=== PATIENT | female | born 1980 | race African-American/Black ===

== ENCOUNTER 2016-07-14 19:59 | Emergency (ER) | payer MEDICARE, MEDICAID ==
[2016-07-14 20:36] VITALS: BP 126/80
[2016-07-14] MEDS ORDERED: ACETAMINOPHEN SOLN 325 MG/10.15 ML UDCUP PO ONE (20:40)
--- NOTE | 2016-07-14 20:41 | ER Document Report ---
ED Medical Screen (RME) - General Stated Complaint: SORE THROAT/COUGH Mode of Arrival: Ambulatory Information source: Patient Notes: Patient complains of sore throat, cough and congestion. No fever. Patient states symptoms started yesterday. hx: Peritoneal dialysis, diabetes, hypertension I have greeted and performed a rapid initial assessment of this patient. A comprehensive ED assessment and evaluation of the patient, analysis of test results and completion of the medical decision making process will be conducted by additional ED providers. TRAVEL OUTSIDE OF THE [place] IN LAST 30 DAYS: No - Related Data Allergies/Adverse Reactions: cephalexin monohydrate [From Keflex] Allergy (Severe, Verified 07/14/16 20:38) Hives clindamycin [Clindamycin] Allergy (Severe, Verified 07/14/16 20:38) Hives morphine [Morphine] Allergy (Severe, Verified 07/14/16 20:38) Hives Sulfa (Sulfonamide Antibiotics) Allergy (Severe, Verified 07/14/16 20:38) Hives tramadol [Tramadol] Allergy (Severe, Verified 07/14/16 20:38) Hives trimethoprim [From Bactrim] Allergy (Severe, Verified 07/14/16 20:38) Penicillins Allergy (Verified 07/14/16 20:38) sulfamethoxazole [From Bactrim] Allergy (Verified 07/14/16 20:38) Past Medical History - Past Medical History Cardiac Medical History: Reports: Hx Hypertension Denies: Hx Coronary Artery Disease, Hx Heart Attack Pulmonary Medical History: Denies: Hx Asthma, Hx Bronchitis, Hx COPD, Hx Pneumonia Neurological Medical History: Denies: Hx Seizures Endocrine Medical History: Reports: Hx Diabetes Mellitus Type 2 Renal/ Medical History: Reports: Hx End Stage Renal Disease, Hx Peritoneal Dialysis Musculoskeltal Medical History: Denies Hx Arthritis, Reports Hx Musculoskeletal Trauma - knee injury october 13, 2013 Skin Medical History: Reports Hx MRSA Psychiatric Medical History: Denies: Hx Depression Infectious Medical History: Reports: Hx MRSA Past Surgical History: Reports: Hx Orthopedic Surgery, Hx Vascular Surgery - PermCath - Immunizations Immunizations up to date: No Hx Diphtheria, Pertussis, Tetanus Vaccination: No Physical Exam - Vital signs Vitals: Temp Pulse Resp BP 98.1 F 93 18 126/80 H 07/14/16 20:35 07/14/16 20:35 07/14/16 20:35 07/14/16 20:35 - Respiratory Respiratory status: No respiratory distress Breath sounds: Nonproductive cough Course - Vital Signs Vital signs: Temp Pulse Resp BP Pulse Ox 98.1 F 93 18 126/80 H 07/14/16 20:35 07/14/16 20:35 07/14/16 20:35 07/14/16 20:35
--- NOTE | 2016-07-14 23:02 | ER Document Report ---
ED General - General Chief Complaint: Sore Throat Stated Complaint: SORE THROAT/COUGH Mode of Arrival: Ambulatory Information source: Patient Notes: 36-year-old female history of peritoneal dialysis presents with complaints of sore throat nonproductive cough of one day duration. Patient denies any fevers or chills admits to body aches TRAVEL OUTSIDE OF THE [place] IN LAST 30 DAYS: No - HPI Onset: Yesterday Onset/Duration: Persistent Quality of pain: Achy Severity: Mild Pain Level: 1 Associated symptoms: Body/muscle aches, Nonproductive cough, Sore throat Exacerbated by: Denies Relieved by: Denies Similar symptoms previously: No Recently seen / treated by doctor: No - Related Data Allergies/Adverse Reactions: cephalexin monohydrate [From Keflex] Allergy (Severe, Verified 07/14/16 20:38) Hives clindamycin [Clindamycin] Allergy (Severe, Verified 07/14/16 20:38) Hives morphine [Morphine] Allergy (Severe, Verified 07/14/16 20:38) Hives Sulfa (Sulfonamide Antibiotics) Allergy (Severe, Verified 07/14/16 20:38) Hives tramadol [Tramadol] Allergy (Severe, Verified 07/14/16 20:38) Hives trimethoprim [From Bactrim] Allergy (Severe, Verified 07/14/16 20:38) Penicillins Allergy (Verified 07/14/16 20:38) sulfamethoxazole [From Bactrim] Allergy (Verified 07/14/16 20:38) Past Medical History - General Information source: Patient - Social History Smoking Status: Never Smoker Cigarette use (# per day): No Chew tobacco use (# tins/day): No Smoking Education Provided: No Family History: Arthritis, DM, Hypertension Patient has suicidal ideation: No Patient has homicidal ideation: No - Past Medical History Cardiac Medical History: Reports: Hx Hypertension Denies: Hx Coronary Artery Disease, Hx Heart Attack Pulmonary Medical History: Denies: Hx Asthma, Hx Bronchitis, Hx COPD, Hx Pneumonia Neurological Medical History: Denies: Hx Seizures Endocrine Medical History: Reports: Hx Diabetes Mellitus Type 2 Renal/ Medical History: Reports: Hx End Stage Renal Disease, Hx Peritoneal Dialysis Musculoskeltal Medical History: Denies Hx Arthritis, Reports Hx Musculoskeletal Trauma - knee injury october 13, 2013 Skin Medical History: Reports Hx MRSA Psychiatric Medical History: Denies: Hx Depression Infectious Medical History: Reports: Hx MRSA Past Surgical History: Reports: Hx Orthopedic Surgery, Hx Vascular Surgery - PermCath - Immunizations Immunizations up to date: No Hx Diphtheria, Pertussis, Tetanus Vaccination: No Hx Pneumococcal Vaccination: 05/27/14 Review of Systems - Review of Systems Notes: REVIEW OF SYSTEMS: CONSTITUTIONAL : Denies fever, chills, or sweats. Denies recent illness. EENT: Admits to sore throat CARDIOVASCULAR: Denies chest pain. Denies palpitations or racing or irregular heart beat. Denies ankle edema. RESPIRATORY: Denies cough, cold, or chest congestion. Denies shortness of breath, difficulty breathing, or wheezing. GASTROINTESTINAL: Denies abdominal pain or distention. Denies nausea, vomiting , or diarrhea. Denies blood in vomitus, stools, or per rectum. Denies black, tarry stools. Denies constipation. GENITOURINARY: Denies difficulty urinating, painful urination, burning, frequency, blood in urine, or discharge. FEMALE GENITOURINARY: Denies vaginal bleeding, heavy or abnormal periods, irregular periods. Denies vaginal discharge or odor. MUSCULOSKELETAL: Admits to body aches SKIN: Denies rash, lesions or sores. HEMATOLOGIC : Denies easy bruising or bleeding. LYMPHATIC: Denies swollen, enlarged glands. NEUROLOGICAL: Denies confusion or altered mental status. Denies passing out or loss of consciousness. Denies dizziness or lightheadedness. Denies headache. Denies weakness or paralysis or loss of use of either side. Denies problems with gait or speech. Denies sensory loss, numbness, or tingling. Denies seizures. PSYCHIATRIC: Denies anxiety or stress. Denies depression, suicidal ideation, or homicidal ideation. ALL OTHER SYSTEMS REVIEWED AND NEGATIVE. Dictation was performed using [employer] voice recognition software PHYSICAL EXAMINATION: GENERAL: Well-appearing, well-nourished and in no acute distress. HEAD: Atraumatic, normocephalic. EYES: Pupils equal round and reactive to light, extraocular movements intact, conjunctiva are normal. ENT: Nares patent, oropharynx clear without exudates. Moist mucous membranes. NECK: Normal range of motion, supple without lymphadenopathy LUNGS: Breath sounds clear to auscultation bilaterally and equal. No wheezes rales or rhonchi. HEART: Regular rate and rhythm without murmurs ABDOMEN: Soft, nontender, nondistended abdomen. No guarding, no rebound. No masses appreciated. Female : deferred Musculoskeletal: Normal range of motion, no pitting or edema. No cyanosis. NEUROLOGICAL: Cranial nerves grossly intact. Normal speech, normal gait. Normal sensory, motor exams PSYCH: Normal mood, normal affect. SKIN: Warm, Dry, normal turgor, no rashes or lesions noted. Physical Exam - Vital signs Vitals: Temp Pulse Resp BP 98.1 F 93 18 126/80 H 07/14/16 20:35 07/14/16 20:35 07/14/16 20:35 07/14/16 20:35 Course - Re-evaluation Re-evalutation: 07/14/16 23:01 Physical examination and x-ray noted no acute abnormality, patient will be given a prescription for Levaquin with the understanding that she only takes if her symptoms are worsening in case she cannot get back in with her primary care physician or the emergency department Otherwise patient is in no distress resting comfortably and has been doing dialysis daily After performing a Medical Screening Examination, I estimate there is LOW risk for ACUTE CORONARY SYNDROME, RESPIRATORY FAILURE, SEPSIS OR MENINGITIS, thus I consider the discharge disposition reasonable. The patient and I have discussed the diagnosis and risks, and we agree with discharging home with close follow- up. We also discussed returning to the Emergency Department immediately if new or worsening symptoms occur. We have discussed the symptoms which are most concerning (e.g., changing or worsening pain, trouble swallowing or breathing, neck stiffness, fever) that necessitate immediate return. - Vital Signs Vital signs: Temp Pulse Resp BP Pulse Ox 98.1 F 93 18 126/80 H 07/14/16 20:35 07/14/16 20:35 07/14/16 20:35 07/14/16 20:35 - Diagnostic Test Radiology reviewed: Image reviewed, Reports reviewed Discharge - Discharge Clinical Impression: Sore throat, Body aches, Nonproductive cough Condition: Stable Disposition: HOME, SELF-CARE Instructions: Sore Throat ([facility]) Prescriptions: Levofloxacin [Levaquin 750 mg Tablet] 750 mg PO DAILY #5 tablet Referrals: JONAH PACE MD [Primary Care Provider] - Follow up tomorrow
== END 2016-07-14 23:30 | disposition home or self-care (01) ==
LOC: ER 19:59
DX: J02.9 Acute pharyngitis, unspecified (principal); R05 Cough; M79.1 Myalgia; E11.22 Type 2 diabetes mellitus with diabetic chronic kidney disease; I12.0 Hypertensive chronic kidney disease with stage 5 chronic kidney disease or end stage renal disease; N18.6 End stage renal disease; Z86.14 Personal history of Methicillin resistant Staphylococcus aureus infection; Z88.6 Allergy status to analgesic agent; Z88.2 Allergy status to sulfonamides
CPT/HCPCS: 99283; 87070; 87880; 71020; J3490

== ENCOUNTER 2016-09-06 08:34 | Day surgery (SDC) | payer MEDICARE, MEDICAID ==
[2016-09-03 12:41] LABS: ABSOLUTE BASOPHILS # (AUTO) 0.1 10^3/uL (0.0-0.2); ABSOLUTE EOSINOPHILS # (AUTO) 0.3 10^3/uL (0.0-0.6); ABSOLUTE LYMPHOCYTES (AUTO) 1.8 10^3/uL (0.5-4.7); ABSOLUTE MONOCYTES (AUTO) 0.8 10^3/uL (0.1-1.4); ABSOLUTE NEUT (AUTO) 7.6 10^3/uL (1.7-8.2); BASOPHILS % (AUTO) 0.5 % (0-2); EOSINOPHILS % (AUTO) 2.8 % (0-6); HEMATOCRIT 31.1 % (36.0-47.0); HEMOGLOBIN 10.4 g/dL (12.0-15.5); HGB HCT DIFFERENCE 0.1; LYMPHOCYTES % (AUTO) 16.8 % (13-45); MEAN CORPUSCULAR HEMOGLOBIN 32.9 pg (27.0-33.4); MEAN CORPUSCULAR HGB CONC 33.4 g/dL (32.0-36.0); MEAN CORPUSCULAR VOLUME 98 fl (80-97); MONOCYTES % (AUTO) 7.7 % (3-13); RED BLOOD COUNT 3.16 10^6/uL (3.72-5.28); RED CELL DISTRIBUTION WIDTH 19.1 % (11.5-14.0); SEGMENTED NEUTROPHILS % (AUTO) 72.2 % (42-78); WHITE BLOOD COUNT 10.5 10^3/uL (4.0-10.5)
[2016-09-03 13:01] LABS: BLOOD UREA NITROGEN 51 mg/dL (7-20); CALCIUM 9.9 mg/dL (8.4-10.2); CARBON DIOXIDE 25 mmol/L (22-30); CHLORIDE 97 mmol/L (98-107); GLUCOSE 166 mg/dL (75-110); SODIUM 145.2 mmol/L (137-145)
[2016-09-03 13:11] LABS: ANION GAP 23 (5-19); CREATININE RESULT 16.99 mg/dL (0.52-1.25)
[~2016-09-06 08:34] MED LIST: LIDOCAINE 0.5% INJ-PF (5 MG/ML) 50 ML SDV SUBCUT PRN; NORMAL SALINE 1000 ML (RENAL PATIENTS) IV PRN
[2016-09-06] MEDS ORDERED: LIDOCAINE 1%/EPINEPHRINE INJ 20 ML VIAL ONE (11:21)
[2016-09-06] MEDS ORDERED: FENTANYL CITRATE INJ/PF 100 MCG/2 ML AMPUL ONE (11:32)
[2016-09-06] MEDS ORDERED: MIDAZOLAM 2 MG/2 ML INJ ONE (11:32)
[2016-09-06] MEDS ORDERED: ONDANSETRON HCL INJ/PF 4 MG/2 ML SDV ONE (11:32)
[2016-09-06] MEDS ORDERED: PROPOFOL INJ 200 MG/20 ML VIAL IV ONE (11:33)
[2016-09-06] MEDS ORDERED: FENTANYL CITRATE INJ/PF 100 MCG/2 ML AMPUL IV PRN ×3 (12:29)
[2016-09-06] MEDS ORDERED: PROMETHAZINE HCL INJ 25 MG/1 ML VIAL IV PRN (12:29)
[2016-09-06] MEDS ORDERED: DIPHENHYDRAMINE HCL 50 MG/ML VIAL IV PRN (12:29)
[2016-09-06] MEDS ORDERED: MEPERIDINE HCL/PF INJ 25 MG/1 ML DISP.SYRIN IV PRN (12:29)
[2016-09-06] MEDS ORDERED: ONDANSETRON HCL INJ/PF 4 MG/2 ML SDV IV PRN (13:28)
[2016-09-06] MEDS ORDERED: RINGERS SOLUTION,LACTATED 1,000 ML IV PRN (13:29)
[2016-09-06] MEDS ORDERED: HYDROCODONE/ACETAMINOPHEN 5-325 MG TABLET PO PRN ×2 (13:30→13:51)
[2016-09-06] MEDS ORDERED: OXYCODONE-ACETAMINOPHEN 5-325 MG TABLET PO PRN (13:30)
[2016-09-06] MEDS ORDERED: HYDROMORPHONE HCL INJ/PF 2 MG/ML AMPULE IV PRN (13:30)
[2016-09-06 16:42] VITALS: BP 138/94
--- NOTE | 2016-10-07 08:15 | Operative Report ---
Operative Report DATE OF SURGERY: 10/06/16 PREOPERATIVE DIAGNOSIS: CESAR I, Endometrial Polyp, Menorrhagia POSTOPERATIVE DIAGNOSIS: MAGALI OPERATION: EUA, Paracervical Block, Hysteroscopy, D&C, ECC, CKC SURGEON: EUN GUSMAN ANESTHESIA: GA TISSUE REMOVED OR ALTERED: EMC, CKC, ECC COMPLICATIONS: none ESTIMATED BLOOD LOSS: 10ml INTRAOPERATIVE FINDINGS: ingrown hair on right groin, no adnexal masses, small AV uterus with minimal descent, mildly proliferative appearing endometrium, no polyp noted, moderate currettings on D&C, ECC done. PROCEDURE: Preoperative Diagnosis: [CESAR I, Endometrial Polyp, Menorrhagia] Postoperative Diagnosis: MAGALI Procedure: EUA, Paracervical Block, Hysteroscopy, Dilation and Curettage, CKC, ECC Anesthesia: [ Jacinto SPARKS, Jayne ORTIZ] Anesthesia: LMAC EBL: less than 10ml IVF: [400ml] UOP: void prior to OR Specimens: [ECC, EMC, CKC] Complications: None Findings: see above Indications: [36yo G0 currently on DepoProvera for contraception and with chronic renal failure on dialysis presents for management of CESAR I so that she be placed on transplant list. CESAR I persistent. Endometrial bopsy revealed endometrial polyp in pt with meorrhagia. She was counseled regarding the options for treatment and desires management with CKC and D&C due to desire for placement on transplant list. The risks, benefits and alternatives reviewed. She desires to proceed with the planned procedure.] Procedure: The patient was taken to the Operating Room where general anesthesia was obtained without difficulty. She was prepped and draped in the normal sterile fashion in the dorsal lithotomy position. Exam under anesthesia was performed and noted above. A speculum was placed in the vagina. The anterior cervix was grasped with a single-tooth tenaculum and the uterus sounded to 8 cm after paracervical block was performed with 8 mL of 1% lidocaine with epinephrine. Sequential dilators were then used to dilate the cervix to accommodate the hysteroscope. The hysteroscope was then gently advanced into the uterine cavity in the usual fashion with visualization of the endometrial cavity but no definitive polyp noted. Therefore the hysteroscope was removed and currettage performed until a gritty texture noted. At this time suture was placed at the 3 o'clock and 9 o'clock position and lugols solution placed. Area of decreased uptake noted and scalpel used to excise area in a conical fasion. The bed was then cauterized and ECC performed. Monsels soaked gel foam was placed into bed and suture tied over foam for hemostasis. Good hemostasis noted. All instruments were removed from the patient's cervix and vagina. Sponge lap needle and instrument counts are correct 2. No perioperative antibiotics were given as is not indicated for this procedure. The patient tolerated the procedure
== END 2016-09-06 15:40 | disposition home or self-care (01) ==
LOC: OROUT 08:34
PROVIDERS: ATTEND Student in an Organized Health Care Education/Training Program
PROC: 0UDB8ZX Extraction of Endometrium, Via Natural or Artificial Opening Endoscopic, Diagnostic (ICD-10-PCS; principal; 2016-09-06 11:00)
PROC: 0UBC8ZX Excision of Cervix, Via Natural or Artificial Opening Endoscopic, Diagnostic (ICD-10-PCS; 2016-09-06 11:00)
DX: N87.0 Mild cervical dysplasia (principal); N92.0 Excessive and frequent menstruation with regular cycle; N84.0 Polyp of corpus uteri; L73.1 Pseudofolliculitis barbae; Z79.899 Other long term (current) drug therapy; I12.0 Hypertensive chronic kidney disease with stage 5 chronic kidney disease or end stage renal disease; E11.22 Type 2 diabetes mellitus with diabetic chronic kidney disease; N18.6 End stage renal disease; E78.4 Other hyperlipidemia; Z86.718 Personal history of other venous thrombosis and embolism; Z79.4 Long term (current) use of insulin; Z88.5 Allergy status to narcotic agent; Z88.0 Allergy status to penicillin; Z88.1 Allergy status to other antibiotic agents
CPT/HCPCS: 36415 ×2; 82947; 84703 ×2; 85025; 80048; 88305 ×2; 88307 ×2; 58558; 57520; J2250; J3010; J3490; J2405; J2704; A9270; 952

== ENCOUNTER 2017-01-06 18:35 | Emergency (ER) | payer MEDICARE, MEDICAID ==
[2017-01-06 18:41] VITALS: BP 177/83
--- NOTE | 2017-01-06 19:27 | ER Document Report ---
ED Eye Complaint - General Chief Complaint: Eye Problem Stated Complaint: LEFT EYE PAIN Time Seen by Provider: 01/06/17 19:14 TRAVEL OUTSIDE OF THE [place] IN LAST 30 DAYS: No - HPI Onset: Yesterday Eye location: Left Injury: No Quality of pain: Other - FB sensation Contact lenses worn: No Associated symptoms: Foreign body sensation. denies: Burning, Itching, Pain, Photophobia, Redness, Matting, Eyelid swelling, Orbital swelling, Blurred vision , Double vision, Decreased vision, Loss of vision - Related Data Allergies/Adverse Reactions: cephalexin monohydrate [From Keflex] Allergy (Severe, Verified 08/27/16 10:19) Hives clindamycin [Clindamycin] Allergy (Severe, Verified 08/27/16 10:19) Hives morphine [Morphine] Allergy (Severe, Verified 08/27/16 10:19) Hives Sulfa (Sulfonamide Antibiotics) Allergy (Severe, Verified 08/27/16 10:19) Hives tramadol [Tramadol] Allergy (Severe, Verified 08/27/16 10:19) Hives trimethoprim [From Bactrim] Allergy (Severe, Verified 08/27/16 10:19) Penicillins Allergy (Verified 08/27/16 10:19) sulfamethoxazole [From Bactrim] Allergy (Verified 08/27/16 10:19) Past Medical History - Social History Smoking Status: Unknown if Ever Smoked Family History: Arthritis, DM, Hypertension - Past Medical History Cardiac Medical History: Reports: Hx Hypertension Denies: Hx Coronary Artery Disease, Hx Heart Attack Pulmonary Medical History: Denies: Hx Asthma, Hx Bronchitis, Hx COPD, Hx Pneumonia Neurological Medical History: Denies: Hx Cerebrovascular Accident, Hx Seizures Endocrine Medical History: Reports: Hx Diabetes Mellitus Type 2 Renal/ Medical History: Reports: Hx End Stage Renal Disease, Hx Peritoneal Dialysis - Due for exchange, fluid is on Musculoskeltal Medical History: Denies Hx Arthritis, Reports Hx Musculoskeletal Trauma - knee injury october 13, 2013 Skin Medical History: Reports Hx MRSA Psychiatric Medical History: Denies: Hx Depression Infectious Medical History: Reports: Hx MRSA Past Surgical History: Reports: Hx Orthopedic Surgery, Hx Vascular Surgery - PermCath - Immunizations Immunizations up to date: No Hx Diphtheria, Pertussis, Tetanus Vaccination: No Hx Pneumococcal Vaccination: 05/27/14 Review of Systems - Review of Systems Constitutional: No symptoms reported EENT: See HPI Physical Exam - Vital signs Vitals: Temp Pulse Resp BP Pulse Ox 97.9 F 93 20 177/83 H 98 01/06/17 18:39 01/06/17 18:39 01/06/17 18:39 01/06/17 18:39 01/06/17 18:39 - HEENT Head: Normocephalic, Atraumatic Eyes: Normal Conjunctiva: Normal Cornea: Normal Extraocular movements intact: Yes Eyelashes: Normal Pupils: PERRL Lids everted for exam: left: Chalazion Anterior chamber: Normal Fundascopic: Normal Visual louis normal: Yes Course - Re-evaluation Re-evalutation: 01/06/17 21:46 Patient is a 36-year-old female presents with visualization of the left eyelid. Patient educated on warm compresses and given medication for discomfort. Patient to follow-up with ophthalmology next week. After performing a medical screening exam, his low clinical suspicion for any underlying acute closure glaucoma, iritis, conjunctivitis, or shingles. - Vital Signs Vital signs: Temp Pulse Resp BP Pulse Ox 97.9 F 93 20 177/83 H 98 01/06/17 18:39 01/06/17 18:39 01/06/17 18:39 01/06/17 18:39 01/06/17 18:39 Discharge - Discharge Clinical Impression: Chalazion Qualifiers: Laterality: left Eyelid: upper Qualified Code(s): H00.14 - Chalazion left upper eyelid Condition: Good Disposition: HOME, SELF-CARE Instructions: Chalazion ([facility]) Prescriptions: Ketorolac Tromethamine/Pf [Acuvail 0.45% Ophth Solution] 1 each OP Q6HP PRN 7 Days PRN Reason: Referrals: BLAIR TANNER MD [ACTIVE STAFF] - Follow up in 1 week
[2017-01-06] MEDS ORDERED: TETRACAINE HCL 0.5% OPH SOLN 2 ML OS ONE (19:35)
== END 2017-01-06 19:56 | disposition home or self-care (01) ==
LOC: ER 18:35
DX: H00.14 Chalazion left upper eyelid (principal); I12.0 Hypertensive chronic kidney disease with stage 5 chronic kidney disease or end stage renal disease; E11.22 Type 2 diabetes mellitus with diabetic chronic kidney disease; N18.6 End stage renal disease; Z99.2 Dependence on renal dialysis; Z88.1 Allergy status to other antibiotic agents; Z88.5 Allergy status to narcotic agent; Z88.2 Allergy status to sulfonamides; Z88.0 Allergy status to penicillin
CPT/HCPCS: 99283

== ENCOUNTER → 2017-01-18 | Outpatient (CLI) | payer MEDICARE, MEDICAID ==
--- NOTE | 2017-01-18 15:38 | RADIOLOGY REPORT (SQ) ---
EXAM DESCRIPTION: CT PELVIS WITHOUT COMPLETED DATE/TIME: 01/18/2017 2:55 pm REASON FOR STUDY: HYDRADENITIS/HEMORRHAGIC CYST OF OVARY/ABSCESS OF R GROIN L73.2 HIDRADENITIS SUPP URATIVA L02.214 CUTANEOUS ABSCESS OF GROIN COMPARISON: None. TECHNIQUE: CT scan of the pelvis performed without intravenous or oral contrast. Patient on periton eal dialysis. Images reviewed with soft tissue and bone windows. Reconstructed coronal and sagittal MPR images reviewed. All images stored on PACS. All CT scanners at this facility use dose modulation, iterative reconstruction, and/or weight based d osing when appropriate to reduce radiation dose to as low as reasonably achievable (ALARA). [facility]: Dose Right [facility]: CareDose [facility]: Dose Right [facility]: Teradose 4D [facility]: [employer] RADIATION DOSE: mGy. LIMITATIONS: None. FINDINGS: Peritoneal dialysis catheter coiled in the pelvis. Small amount of free fluid. No eviden ce of abscess. No adnexal mass is. Umbilical hernia containing fat. Normal appendix. No acute bone findings. IMPRESSION: No evidence of abscess or adnexal mass. TECHNICAL DOCUMENTATION: JOB ID: [id number] Quality ID # [id number]: Final reports with documentation of one or more dose reduction techniques (e.g., Au tomated exposure control, adjustment of the mA and/or kV according to patient size, use of iterative reconstruction technique) 2010 [employer]- All Rights Reserved
== END ==
LOC: RAD 14:08
PROVIDERS: ATTEND Obstetrics & Gynecology Gynecologic Oncology
DX: L02.214 Cutaneous abscess of groin (principal); L73.2 Hidradenitis suppurativa
CPT/HCPCS: 72192; 82565

== ENCOUNTER 2017-02-21 16:08 | Emergency (ER) | payer MEDICARE, MEDICAID ==
--- NOTE | 2017-02-21 17:21 | ER Document Report ---
ED Medical Screen (RME) - General Chief Complaint: Nausea/Vomiting Stated Complaint: NAUSEA,VOMITING,DIZZINESS Time Seen by Provider: 02/21/17 17:19 Notes: Patient has peritoneal dialysis. She states her kidney feels due to high blood pressure. She states she was at the dialysis center today for her monthly visit and received an Epogen shot and a flu shot. She says several hours later while at work she began to be real dizzy and had chest pain. She also states she felt very sleepy. She states the chest pain is now gone. However she states that she still feels very weak and sleepy. No recent cough cold or congestion. No vomiting or diarrhea. TRAVEL OUTSIDE OF THE [place] IN LAST 30 DAYS: No - Related Data Allergies/Adverse Reactions: cephalexin monohydrate [From Keflex] Allergy (Severe, Verified 02/21/17 16:13) Hives clindamycin [Clindamycin] Allergy (Severe, Verified 02/21/17 16:13) Hives morphine [Morphine] Allergy (Severe, Verified 02/21/17 16:13) Hives Sulfa (Sulfonamide Antibiotics) Allergy (Severe, Verified 02/21/17 16:13) Hives tramadol [Tramadol] Allergy (Severe, Verified 02/21/17 16:13) Hives trimethoprim [From Bactrim] Allergy (Severe, Verified 02/21/17 16:13) Penicillins Allergy (Verified 02/21/17 16:13) sulfamethoxazole [From Bactrim] Allergy (Verified 02/21/17 16:13) Past Medical History - Social History Chew tobacco use (# tins/day): No Frequency of alcohol use: None Drug Abuse: None - Past Medical History Cardiac Medical History: Reports: Hx Hypertension Denies: Hx Coronary Artery Disease, Hx Heart Attack Pulmonary Medical History: Denies: Hx Asthma, Hx Bronchitis, Hx COPD, Hx Pneumonia Neurological Medical History: Denies: Hx Cerebrovascular Accident, Hx Seizures Endocrine Medical History: Reports: Hx Diabetes Mellitus Type 2 Renal/ Medical History: Reports: Hx End Stage Renal Disease - peritoneal dialysis. Denies: Hx Peritoneal Dialysis Musculoskeltal Medical History: Denies Hx Arthritis, Reports Hx Musculoskeletal Trauma - knee injury october 13, 2013 Skin Medical History: Reports Hx MRSA Psychiatric Medical History: Denies: Hx Depression Infectious Medical History: Reports: Hx MRSA Past Surgical History: Reports: Hx Orthopedic Surgery, Hx Vascular Surgery - PermCath, peritoneal dialysis - Immunizations Immunizations up to date: No Hx Diphtheria, Pertussis, Tetanus Vaccination: No Physical Exam - Vital signs Vitals: Temp Pulse Resp BP Pulse Ox 98.6 F 84 12 133/78 H 100 02/21/17 16:13 02/21/17 16:13 02/21/17 16:13 02/21/17 16:13 02/21/17 16:13 Course - Vital Signs Vital signs: Temp Pulse Resp BP Pulse Ox 98.6 F 84 12 133/78 H 100 02/21/17 16:13 02/21/17 16:13 02/21/17 16:13 02/21/17 16:13 02/21/17 16:13
[2017-02-21 18:40] LABS: ABSOLUTE EOSINOPHILS # (AUTO) 0.2 10^3/uL (0.0-0.6); ABSOLUTE LYMPHOCYTES (AUTO) 1.5 10^3/uL (0.5-4.7); ABSOLUTE MONOCYTES (AUTO) 0.5 10^3/uL (0.1-1.4); ABSOLUTE NEUT (AUTO) 5.6 10^3/uL (1.7-8.2); BASOPHILS % (AUTO) 0.6 % (0-2); EOSINOPHILS % (AUTO) 2.1 % (0-6); HEMOGLOBIN 8.5 g/dL (12.0-15.5); HGB HCT DIFFERENCE 0.5; LYMPHOCYTES % (AUTO) 18.9 % (13-45); MEAN CORPUSCULAR HEMOGLOBIN 31.7 pg (27.0-33.4); MEAN CORPUSCULAR HGB CONC 33.9 g/dL (32.0-36.0); MEAN CORPUSCULAR VOLUME 93 fl (80-97); MONOCYTES % (AUTO) 6.6 % (3-13); RED BLOOD COUNT 2.68 10^6/uL (3.72-5.28); SEGMENTED NEUTROPHILS % (AUTO) 71.8 % (42-78); WHITE BLOOD COUNT 7.8 10^3/uL (4.0-10.5)
[2017-02-21 18:52] LABS: ALANINE AMINOTRANSFERASE 45 U/L (9-52); ALBUMIN 4.1 g/dL (3.5-5.0); ALKALINE PHOSPHATASE 240 U/L (38-126); ASPARTATE AMINO TRANSFERASE 46 U/L (14-36); BILIRUBIN,DIRECT 0.5 mg/dL (0.0-0.4); BILIRUBIN,TOTAL 0.5 mg/dL (0.2-1.3); BLOOD UREA NITROGEN 67 mg/dL (7-20); CALCIUM 8.6 mg/dL (8.4-10.2); CARBON DIOXIDE 24 mmol/L (22-30); CHLORIDE 96 mmol/L (98-107); GLUCOSE 206 mg/dL (75-110); POTASSIUM 4.2 mmol/L (3.6-5.0); SODIUM 139.7 mmol/L (137-145); TOTAL PROTEIN 7.8 g/dL (6.3-8.2)
[2017-02-21 19:06] LABS: ANION GAP 20 (5-19)
--- NOTE | 2017-02-21 19:42 | ER Document Report ---
ED General - General Chief Complaint: Nausea/Vomiting Stated Complaint: NAUSEA,VOMITING,DIZZINESS Time Seen by Provider: 02/21/17 17:19 Notes: Patient is a 36-year-old female with past medical history of chronic kidney disease with peritoneal dialysis dependence who presents with generalized fatigue, nausea and lightheadedness approximately 2 hours after receiving an influenza vaccination as well as a shot of Epogen. At time of my assessment she states the symptoms have now resolved and she feels much better without intervention. She denies a history of similar symptoms in the past. When her symptoms are present nothing improves or worsens them. She denied any abdominal pain, chest pain, shortness of breath, headache, neck pain or altered mental status. She did have several episodes of nonbilious vomiting. She has not missed any sessions of peritoneal dialysis. TRAVEL OUTSIDE OF THE [place] IN LAST 30 DAYS: No - Related Data Allergies/Adverse Reactions: cephalexin monohydrate [From Keflex] Allergy (Severe, Verified 02/21/17 16:13) Hives clindamycin [Clindamycin] Allergy (Severe, Verified 02/21/17 16:13) Hives morphine [Morphine] Allergy (Severe, Verified 02/21/17 16:13) Hives Sulfa (Sulfonamide Antibiotics) Allergy (Severe, Verified 02/21/17 16:13) Hives tramadol [Tramadol] Allergy (Severe, Verified 02/21/17 16:13) Hives trimethoprim [From Bactrim] Allergy (Severe, Verified 02/21/17 16:13) Penicillins Allergy (Verified 02/21/17 16:13) sulfamethoxazole [From Bactrim] Allergy (Verified 02/21/17 16:13) Past Medical History - General Information source: Patient - Social History Smoking Status: Never Smoker Chew tobacco use (# tins/day): No Frequency of alcohol use: None Drug Abuse: None Lives with: Family Family History: Arthritis, DM, Hypertension - Past Medical History Cardiac Medical History: Reports: Hx Hypertension Denies: Hx Coronary Artery Disease, Hx Heart Attack Pulmonary Medical History: Denies: Hx Asthma, Hx Bronchitis, Hx COPD, Hx Pneumonia Neurological Medical History: Denies: Hx Cerebrovascular Accident, Hx Seizures Endocrine Medical History: Reports: Hx Diabetes Mellitus Type 2 Renal/ Medical History: Reports: Hx End Stage Renal Disease - peritoneal dialysis. Denies: Hx Peritoneal Dialysis Musculoskeltal Medical History: Denies Hx Arthritis, Reports Hx Musculoskeletal Trauma - knee injury october 13, 2013 Skin Medical History: Reports Hx MRSA Psychiatric Medical History: Denies: Hx Depression Infectious Medical History: Reports: Hx MRSA Past Surgical History: Reports: Hx Orthopedic Surgery, Hx Vascular Surgery - PermCath, peritoneal dialysis - Immunizations Immunizations up to date: No Hx Diphtheria, Pertussis, Tetanus Vaccination: No Hx Pneumococcal Vaccination: 05/27/14 Review of Systems - Review of Systems Notes: Constitutional: Negative for fever. HENT: Negative for sore throat. Eyes: Negative for visual changes. Cardiovascular: Negative for chest pain. Respiratory: Negative for shortness of breath. Gastrointestinal: Negative for abdominal pain, positive for vomiting Genitourinary: Negative for dysuria. Musculoskeletal: Negative for back pain. Skin: Negative for rash. Neurological: Negative for headaches, weakness or numbness. 10 point ROS negative except as marked above and in HPI. Physical Exam - Vital signs Vitals: Temp Pulse Resp BP Pulse Ox 98.6 F 84 12 133/78 H 100 02/21/17 16:13 02/21/17 16:13 02/21/17 16:13 02/21/17 16:13 02/21/17 16:13 Interpretation: Normal Notes: PHYSICAL EXAMINATION: GENERAL: Well-appearing, well-nourished and in no acute distress. HEAD: Atraumatic, normocephalic. EYES: Pupils equal round and reactive to light, extraocular movements intact, sclera anicteric, conjunctiva are normal. ENT: nares patent, oropharynx clear without exudates. Moderately dry mucous membranes. NECK: Normal range of motion, supple without lymphadenopathy LUNGS: Breath sounds clear to auscultation bilaterally and equal. No wheezes rales or rhonchi. HEART: Regular rate and rhythm without murmurs ABDOMEN: Soft, nontender, normoactive bowel sounds. No guarding, no rebound. No masses appreciated. PD catheter in place without any evidence of infection around the site. EXTREMITIES: Normal range of motion, no pitting or edema. No cyanosis. NEUROLOGICAL: No focal neurological deficits. Moves all extremities spontaneously and on command. PSYCH: Normal mood, normal affect. SKIN: Warm, Dry, normal turgor, no rashes or lesions noted. Course - Re-evaluation Re-evalutation: 02/21/17 19:41 Patient presents with multiple vague complaints that did not appear to be concerning for any acute life-threatening pathology. Patient stated she had a multitude of symptoms starting after receiving a flu vaccine all of which now have resolved. Vitals are within normal limits at triage and at time of discharge. Physical examination is unremarkable. Patient denies any symptoms and has no exam findings to suggest a peritoneal dialysis associated peritonitis. Patient has tolerated oral intake without difficulty. Patient was not noted to be in distress at any point during their ER visit. Labs do show chronic anemia unchanged and chronic kidney disease again unchanged. At this time, based on the reassuring evaluation, I do not suspect an acute CA, pulmonary embolus, aortic dissection, acute intra-abdominal pathology, stroke, or sepsis.Will discharge with return precautions and follow-up recommendations. Verbal discharge instructions given a the bedside and opportunity for questions given. Medication warnings reviewed. Patient is in agreement with this plan and has verbalized understanding of return precautions and the need for primary care follow-up in the next 24-72 hours. - Vital Signs Vital signs: Temp Pulse Resp BP Pulse Ox 98.6 F 84 14 149/88 H 98 02/21/17 16:13 02/21/17 16:13 02/21/17 19:01 02/21/17 19:55 02/21/17 19:01 - Laboratory Result Diagrams: 02/21/17 18:21 02/21/17 18:21 Laboratory results interpreted by me: 02/21/17 02/21/17 18:21 18:21 RBC 2.68 L Hgb 8.5 L Hct 25.0 L RDW 17.0 H Chloride 96 L Anion Gap 20 H BUN 67 H Creatinine 19.10 H Est GFR ( Amer) 3 L Est GFR (Non-Af Amer) 2 L Glucose 206 H Direct Bilirubin 0.5 H AST 46 H Alkaline Phosphatase 240 H - EKG Interpretation by Me Additional EKG results interpreted by me: 02/21/17 23:12 Sinus rhythm. Rate 81. No ST elevations or depressions. QTC is 488. Discharge - Discharge Clinical Impression: Nausea and vomiting Qualifiers: Vomiting type: unspecified Vomiting Intractability: non-intractable Qualified Code(s): R11.2 - Nausea with vomiting, unspecified Fatigue Qualifiers: Fatigue type: unspecified Qualified Code(s): R53.83 - Other fatigue Condition: Stable Disposition: HOME, SELF-CARE Additional Instructions: Please return to the emergency room immediately if you experience any concerning symptoms including high fevers, severe headache, chest pain, difficulty breathing, abdominal pain, slurred speech, numbness or weakness in your arms or legs, or any other symptom that concerns you. Referrals: MOJGAN PACE MD [Primary Care Provider] - Follow up as needed
[2017-02-21 20:05] VITALS: BP 149/88
--- NOTE | 2017-02-22 03:54 | EKG REPORT ---
SEVERITY:- BORDERLINE ECG - SINUS RHYTHM BORDERLINE T ABNORMALITIES, INFERIOR LEADS BORDERLINE PROLONGED QT INTERVAL : Confirmed by: Paulette Noel MD 22-Feb-2017 03:54:13
== END 2017-02-21 19:55 | disposition home or self-care (01) ==
LOC: ER 16:08
DX: R11.2 Nausea with vomiting, unspecified (principal); R53.83 Other fatigue; R42 Dizziness and giddiness; N18.9 Chronic kidney disease, unspecified; Z79.4 Long term (current) use of insulin
CPT/HCPCS: 36415; 80053; 84484; 84703; 85025; 93005; 93010; 99284

== ENCOUNTER → 2017-03-07 | Outpatient (CLI) | payer MEDICARE, MEDICAID ==
[2017-03-07 08:32] LABS: HEMATOCRIT 23.5 % (36.0-47.0); HGB HCT DIFFERENCE 0.5; RED BLOOD COUNT 2.42 10^6/uL (3.72-5.28); RED CELL DISTRIBUTION WIDTH 21.5 % (11.5-14.0); WHITE BLOOD COUNT 7.8 10^3/uL (4.0-10.5)
[2017-03-07 08:57] LABS: MEAN CORPUSCULAR VOLUME 97 fl (80-97)
== END ==
LOC: OD 07:38
PROVIDERS: ATTEND Internal Medicine Nephrology
DX: D64.9 Anemia, unspecified (principal)
CPT/HCPCS: 36415; 85027

== ENCOUNTER → 2017-07-25 | Outpatient (CLI) | payer MEDICARE, MEDICAID ==
--- NOTE | 2017-07-25 12:45 | RADIOLOGY REPORT (SQ) ---
EXAM DESCRIPTION: FOOT LEFT COMPLETE COMPLETED DATE/TIME: 07/25/2017 12:30 pm REASON FOR STUDY: PAIN IN LEFT ANKLE AND JOINTS OF LEFT FOOT M25.572 PAIN IN LEFT ANKLE AND JOINTS OF LEFT FOOT COMPARISON: None. NUMBER OF VIEWS: Three views. TECHNIQUE: AP, lateral and oblique without weight bearing radiographic images acquired of the left f oot. LIMITATIONS: None. FINDINGS: MINERALIZATION: Normal. BONES: No acute fracture or dislocation. No worrisome bone lesions. No significant osteophytes. JOINTS: No erosions. No wilfredo-articular osteopenia. No chondrocalcinosis. SOFT TISSUES: No swelling. No calcifications. OTHER: No other significant finding. IMPRESSION: NEGATIVE STUDY OF THE LEFT FOOT. NO EXPLANATION FOR PAIN. TECHNICAL DOCUMENTATION: JOB ID: [id number] [employer]- All Rights Reserved Reading location - IP/workstation name: [email or web address]
--- NOTE | 2017-07-25 12:45 | RADIOLOGY REPORT (SQ) ---
EXAM DESCRIPTION: ANKLE LEFT COMPLETE COMPLETED DATE/TIME: 07/25/2017 12:30 pm REASON FOR STUDY: PAIN IN LEFT ANKLE AND JOINTS OF LEFT FOOT M25.572 PAIN IN LEFT ANKLE AND JOINTS OF LEFT FOOT COMPARISON: None. NUMBER OF VIEWS: Three views. TECHNIQUE: AP, lateral, and oblique without weight bearing radiographic images acquired of the left ankle. LIMITATIONS: None. FINDINGS: MINERALIZATION: Normal. BONES: No acute fracture or dislocation. No worrisome bone lesions. No significant osteophytes. JOINTS: No effusions. SOFT TISSUES: No soft tissue swelling. No foreign body. OTHER: No other significant finding. IMPRESSION: NO SIGNIFICANT FINDING IN THE LEFT ANKLE. NO EXPLANATION FOR PAIN. TECHNICAL DOCUMENTATION: JOB ID: [id number] [employer]- All Rights Reserved Reading location - IP/workstation name: [email or web address]
== END ==
LOC: OD 12:11
PROVIDERS: ATTEND Family Medicine
DX: M25.572 Pain in left ankle and joints of left foot (principal)

== ENCOUNTER 2017-09-30 00:04 | Emergency (ER) | payer MEDICARE, MEDICAID ==
[2017-09-30] MEDS ORDERED: HALOPERIDOL LACTATE INJ 5 MG/1 ML VIAL IV ONE (00:51)
--- NOTE | 2017-09-30 00:53 | ER Document Report ---
ED General - General Chief Complaint: Headache Stated Complaint: FEVER Time Seen by Provider: 09/30/17 00:41 Notes: Patient is a 37-year-old female with a past medical history of chronic kidney disease with peritoneal dialysis dependence who presents with 2 days of subjective fever, cough, nausea, vomiting and headache. Patient states that her symptoms have been overall unchanged since onset. She has taken Tylenol with some improvement of her headache. She describes her headache as a bifrontal, dull, throbbing, constant headache. Nothing seems to worsen her symptoms. She denies a history of similar symptoms in the past. She denies any associated abdominal pain. She states that her PD fluid has been clear and she has no history of peritoneal dialysis associated peritonitis. She has not seen her primary care doctor regarding today's concerns. No known sick contacts. She has been able to tolerate oral intake without difficulty. TRAVEL OUTSIDE OF THE [place] IN LAST 30 DAYS: No - Related Data Allergies/Adverse Reactions: cephalexin monohydrate [From Keflex] Allergy (Severe, Verified 09/30/17 00:12) Hives clindamycin [Clindamycin] Allergy (Severe, Verified 09/30/17 00:12) Hives morphine [Morphine] Allergy (Severe, Verified 09/30/17 00:12) Hives Sulfa (Sulfonamide Antibiotics) Allergy (Severe, Verified 09/30/17 00:12) Hives tramadol [Tramadol] Allergy (Severe, Verified 09/30/17 00:12) Hives trimethoprim [From Bactrim] Allergy (Severe, Verified 09/30/17 00:12) Penicillins Allergy (Verified 09/30/17 00:12) sulfamethoxazole [From Bactrim] Allergy (Verified 09/30/17 00:12) Past Medical History - General Information source: Patient - Social History Smoking Status: Never Smoker Frequency of alcohol use: None Drug Abuse: None Lives with: Family Family History: Arthritis, DM, Hypertension - Past Medical History Cardiac Medical History: Reports: Hx Hypertension Denies: Hx Coronary Artery Disease, Hx Heart Attack Pulmonary Medical History: Denies: Hx Asthma, Hx Bronchitis, Hx COPD, Hx Pneumonia Neurological Medical History: Denies: Hx Cerebrovascular Accident, Hx Seizures Endocrine Medical History: Reports: Hx Diabetes Mellitus Type 2 Renal/ Medical History: Reports: Hx End Stage Renal Disease - peritoneal dialysis. Denies: Hx Peritoneal Dialysis Musculoskeltal Medical History: Denies Hx Arthritis, Reports Hx Musculoskeletal Trauma - knee injury october 13, 2013 Skin Medical History: Reports Hx MRSA Psychiatric Medical History: Denies: Hx Depression Infectious Medical History: Reports: Hx MRSA Past Surgical History: Reports: Hx Orthopedic Surgery, Hx Vascular Surgery - PermCath, peritoneal dialysis - Immunizations Immunizations up to date: No Hx Diphtheria, Pertussis, Tetanus Vaccination: No Hx Pneumococcal Vaccination: 05/27/14 Review of Systems - Review of Systems Notes: Constitutional: Positive for subjective fever HENT: Negative for sore throat. Eyes: Negative for visual changes. Cardiovascular: Negative for chest pain. Respiratory: Positive for cough Gastrointestinal: Negative for abdominal pain, positive for vomiting Genitourinary: Negative for vaginal bleeding Musculoskeletal: Negative for back pain. Skin: Negative for rash. Neurological: Negative for headaches, weakness or numbness. 10 point ROS negative except as marked above and in HPI. Physical Exam - Vital signs Vitals: Temp Pulse Resp BP Pulse Ox 98.8 F 109 H 20 147/89 H 95 09/30/17 00:12 09/30/17 00:12 09/30/17 00:12 09/30/17 00:12 09/30/17 00:12 Interpretation: Tachycardic Notes: PHYSICAL EXAMINATION: GENERAL: Well-appearing, well-nourished and in no acute distress. HEAD: Atraumatic, normocephalic. EYES: Pupils equal round and reactive to light, extraocular movements intact, sclera anicteric, conjunctiva are normal. ENT: nares patent, oropharynx clear without exudates. Moderately dry mucous membranes. NECK: Normal range of motion, supple without lymphadenopathy LUNGS: Breath sounds clear to auscultation bilaterally and equal. No wheezes rales or rhonchi. HEART: Regular rate and rhythm without murmurs ABDOMEN: Soft, nontender, normoactive bowel sounds. No guarding, no rebound. No masses appreciated. EXTREMITIES: Normal range of motion, no pitting or edema. No cyanosis. NEUROLOGICAL: Face symmetric. Tongue protrudes midline. Extraocular motions intact. Pupils are 2 mm and equally reactive. Normal speech, normal gait. 5 out of 5 strength in both the distal and proximal upper and lower extremities bilaterally. Sensation is grossly intact throughout. Finger to nose testing normal. Pronator drift normal. PSYCH: Normal mood, normal affect. SKIN: Warm, Dry, normal turgor, no rashes or lesions noted. PD catheter site without any associated bleeding or drainage. No surrounding erythema Course - Re-evaluation Re-evalutation: 09/30/17 00:52 Presentation of a headache that appears to be most consistent with tension versus migrainous type headache. Headache was not maximal in onset, patient has no focal neurologic deficits, no nuchal rigidity, vital signs within normal limits although patient reports that she has had a fever at home there is no fever present here today, no papilledema, and patient is overall well in appearance. Based on clinical history and examination I do not suspect an acute subarachnoid hemorrhage, dural venous sinus thrombosis, acute meningitis, or intercranial mass. Will obtain basic labs, provide a migraine cocktail, obtain chest x-ray as the patient does report that she has had some cough. The patient did drain her PD fluid prior to coming to the emergency department and states that there was no cloudiness to the PD fluid and she denies any abdominal pain. This makes a catheter associated infection highly unlikely. 09/30/17 02:50 Patient has had improvement of her headache. Vomiting. Resting comfortably. Repeat vitals continue to not show any evidence of a fever and she has not received any antipyretics. At this time the exact etiology of patient's symptoms is uncertain to me but I do not suspect any acute life-threatening pathology at this time. At this time will discharge with return precautions and follow-up recommendations. Verbal discharge instructions given a the bedside and opportunity for questions given. Medication warnings reviewed. Patient is in agreement with this plan and has verbalized understanding of return precautions and the need for primary care follow-up in the next 24-72 hours. - Vital Signs Vital signs: Temp Pulse Resp BP Pulse Ox 99.6 F 97 17 151/81 H 98 09/30/17 02:45 09/30/17 02:45 09/30/17 02:45 09/30/17 02:45 09/30/17 02:45 - Laboratory Result Diagrams: 09/30/17 01:54 09/30/17 01:54 Laboratory results interpreted by me: 09/30/17 09/30/17 01:54 01:54 WBC 15.3 H RBC 3.38 L Hgb 10.9 L Hct 31.9 L RDW 15.8 H Seg Neutrophils % 80.9 H Lymphocytes % 9.3 L Absolute Neutrophils 12.4 H Chloride 95 L Anion Gap 22 H BUN 69 H Creatinine 17.49 H Est GFR ( Amer) 3 L Est GFR (Non-Af Amer) 2 L Glucose 113 H - Diagnostic Test Radiology reviewed: Image reviewed, Reports reviewed Radiology results interpreted by me: 09/30/17 02:49 Chest x-ray: No acute infiltrate Discharge - Discharge Clinical Impression: End stage renal disease, Peritoneal dialysis catheter in place Headache Qualifiers: Headache type: unspecified Headache chronicity pattern: acute headache Intractability: not intractable Qualified Code(s): R51 - Headache Nausea and vomiting Qualifiers: Vomiting type: unspecified Vomiting Intractability: non-intractable Qualified Code(s): R11.2 - Nausea with vomiting, unspecified Condition: Stable Disposition: HOME, SELF-CARE Additional Instructions: The exact cause of her symptoms is uncertain today but may be related to a viral infection. Your chest x-ray does not show any evidence of pneumonia. Please continue to take Tylenol as needed for headache. Please keep yourself well hydrated. Please follow-up with your primary care doctor within the next 24 hours. Return to the emergency department immediately if you develop abdominal pain, persistent vomiting, weakness, numbness, worsening of your headache, or any other symptoms that are worrisome to you. Referrals: MOJGAN PACE MD [Primary Care Provider] - Follow up as needed
[2017-09-30 02:09] LABS: ABSOLUTE BASOPHILS # (AUTO) 0.1 10^3/uL (0.0-0.2); ABSOLUTE EOSINOPHILS # (AUTO) 0.1 10^3/uL (0.0-0.6); ABSOLUTE LYMPHOCYTES (AUTO) 1.4 10^3/uL (0.5-4.7); ABSOLUTE MONOCYTES (AUTO) 1.2 10^3/uL (0.1-1.4); ABSOLUTE NEUT (AUTO) 12.4 10^3/uL (1.7-8.2); BASOPHILS % (AUTO) 0.9 % (0-2); EOSINOPHILS % (AUTO) 0.8 % (0-6); HEMATOCRIT 31.9 % (36.0-47.0); HEMOGLOBIN 10.9 g/dL (12.0-15.5); LYMPHOCYTES % (AUTO) 9.3 % (13-45); MEAN CORPUSCULAR HEMOGLOBIN 32.2 pg (27.0-33.4); MEAN CORPUSCULAR VOLUME 95 fl (80-97); MONOCYTES % (AUTO) 8.1 % (3-13); PLATELET COUNT 229 10^3/uL (150-450); RED BLOOD COUNT 3.38 10^6/uL (3.72-5.28); RED CELL DISTRIBUTION WIDTH 15.8 % (11.5-14.0); SEGMENTED NEUTROPHILS % (AUTO) 80.9 % (42-78); TOTAL CELLS COUNTED % (AUTO) 100 %; WHITE BLOOD COUNT 15.3 10^3/uL (4.0-10.5)
[2017-09-30 02:22] LABS: BLOOD UREA NITROGEN 69 mg/dL (7-20); CALCIUM 9.3 mg/dL (8.4-10.2); GLUCOSE 113 mg/dL (75-110); POTASSIUM 4.2 mmol/L (3.6-5.0)
[2017-09-30 02:28] LABS: CARBON DIOXIDE 28 mmol/L (22-30); CHLORIDE 95 mmol/L (98-107); SODIUM 144.5 mmol/L (137-145)
[2017-09-30 02:32] LABS: ANION GAP 22 (5-19)
[2017-09-30] MEDS ORDERED: PROCHLORPERAZINE EDISYLATE INJ 10 MG/2 ML VIAL IV ONE (02:43)
[2017-09-30 02:46] VITALS: BP 151/81
--- NOTE | 2017-09-30 04:14 | RADIOLOGY REPORT (SQ) ---
EXAM DESCRIPTION: CHEST SINGLE VIEW CLINICAL HISTORY: cough COMPARISON: 07/14/2016 FINDINGS: Single frontal view of the chest. Cardiomegaly No consolidation, pneumothorax, or pleural effusion. Low lung volumes. No displaced rib fractures identified. Upper abdominal soft tissues are unremarkable. IMPRESSION: 1. No acute pulmonary process identified. Cardiomegaly.
== END 2017-09-30 04:20 | disposition home or self-care (01) ==
LOC: ER 00:04
DX: R51 Headache (principal); R05 Cough; R11.2 Nausea with vomiting, unspecified; I12.0 Hypertensive chronic kidney disease with stage 5 chronic kidney disease or end stage renal disease; E11.22 Type 2 diabetes mellitus with diabetic chronic kidney disease; N18.6 End stage renal disease; Z99.2 Dependence on renal dialysis; Z88.1 Allergy status to other antibiotic agents; Z88.5 Allergy status to narcotic agent; Z88.2 Allergy status to sulfonamides; Z88.0 Allergy status to penicillin
CPT/HCPCS: 99284; 96374; 96375; 36415; 85025; 80048; 71045; J1630; J0780

== ENCOUNTER 2017-10-02 11:53 | Inpatient (IN) | payer MEDICARE, MEDICAID ==
[2017-10-02] MEDS ORDERED: ACETAMINOPHEN 325 MG TABLET PO ONE (12:06)
[2017-10-02] MEDS ORDERED: METOCLOPRAMIDE HCL INJ/PF 10 MG/2 ML SDV IV ONE (13:16)
[2017-10-02] MEDS ORDERED: LIDOCAINE 1% INJ-PF (10 MG/ML) 30 ML SDV INJ ONE (13:21)
[2017-10-02] MEDS ORDERED: MIDAZOLAM 2 MG/2 ML INJ IV ONE (13:32)
--- NOTE | 2017-10-02 13:52 | ER Document Report ---
ED Headache - General TRAVEL OUTSIDE OF THE [place] IN LAST 30 DAYS: No <CHAD GUZMAN - Last Filed: 10/02/17 18:20> <REJI VILCHIS - Last Filed: 10/02/17 18:31> - General Chief Complaint: Headache >24 hrs old Stated Complaint: HEADACHE, VOMITING, CHILLS Time Seen by Provider: 10/02/17 12:01 - Related Data Allergies/Adverse Reactions: cephalexin monohydrate [From Keflex] Allergy (Severe, Verified 10/02/17 12:07) Hives clindamycin [Clindamycin] Allergy (Severe, Verified 10/02/17 12:07) Hives morphine [Morphine] Allergy (Severe, Verified 10/02/17 12:07) Hives Sulfa (Sulfonamide Antibiotics) Allergy (Severe, Verified 10/02/17 12:07) Hives tramadol [Tramadol] Allergy (Severe, Verified 10/02/17 12:07) Hives trimethoprim [From Bactrim] Allergy (Severe, Verified 10/02/17 12:07) Penicillins Allergy (Verified 10/02/17 12:07) sulfamethoxazole [From Bactrim] Allergy (Verified 10/02/17 12:07) Past Medical History - Social History Smoking Status: Never Smoker Chew tobacco use (# tins/day): No Frequency of alcohol use: None Drug Abuse: None Family History: Arthritis, DM, Hypertension Patient has suicidal ideation: No Patient has homicidal ideation: No - Past Medical History Cardiac Medical History: Reports: Hx Hypertension Denies: Hx Coronary Artery Disease, Hx Heart Attack Pulmonary Medical History: Denies: Hx Asthma, Hx Bronchitis, Hx COPD, Hx Pneumonia Neurological Medical History: Denies: Hx Cerebrovascular Accident, Hx Seizures Endocrine Medical History: Reports: Hx Diabetes Mellitus Type 2 Renal/ Medical History: Reports: Hx End Stage Renal Disease - peritoneal dialysis, Hx Peritoneal Dialysis Musculoskeltal Medical History: Denies Hx Arthritis, Reports Hx Musculoskeletal Trauma - knee injury october 13, 2013 Skin Medical History: Reports Hx MRSA Psychiatric Medical History: Denies: Hx Depression Infectious Medical History: Reports: Hx MRSA Past Surgical History: Reports: Hx Orthopedic Surgery, Hx Vascular Surgery - PermCath, peritoneal dialysis - Immunizations Immunizations up to date: No Hx Diphtheria, Pertussis, Tetanus Vaccination: No Hx Pneumococcal Vaccination: 05/27/14 <CHAD GUZMAN - Last Filed: 10/02/17 18:20> - Vital signs Vitals: Temp Pulse Resp BP Pulse Ox 101.8 F H 100 18 131/76 H 95 10/02/17 11:59 10/02/17 11:59 18 11:59 10/02/17 11:59 10/02/17 11:59 Course - Laboratory Result Diagrams: 10/02/17 14:49 10/02/17 14:49 <CHAD GUZMAN - Last Filed: 10/02/17 18:20> - Laboratory Result Diagrams: 10/02/17 14:49 10/02/17 14:49 <REJI VILCHIS - Last Filed: 10/02/17 18:31> - Re-evaluation Re-evalutation: 10/02/17 13:30 pt is allergic to rocephin, we're attempting to chloramphenicol at this time. 10/02/17 14:34 lumbar puncture successful, csf fluid clear, Dr. Vilchis performed 10/02/17 14:39 pharmacy just called me back, starting meropenem and vancomycin to cover for possible menigitis and possible peritonitis 10/02/17 18:20 Dr. Vickers agrees to admit at this time, CSF shows elevated WBCs and 98% lymphocytes, elevated glucose and protein, treated with acyclovir to cover for herpes meningitis as well. peritoneal dialysis fluid pending culture. pt's fever down to 99 with motrin after tylenol unsuccessful. (CHAD GUZMAN) 10/02/17 16:29 37-year-old female with daily peritoneal dialysis, presents with several days of fevers and headache. No abdominal pain. With her immunocompromised state due to peritoneal dialysis, lumbar puncture performed after consent was obtained and timeout was performed. Clear fluid was obtained , but it did show 15 WBCs in tubes 1 and 4 with high lymphocyte predominance. Acyclovir started and patient requires admission for further evaluation and treatment. Peritoneal fluid also sent and broad-spectrum antibiotics started after consultation with pharmacy due to her multiple medication allergies. (REJI VILCHIS) - Vital Signs Vital signs: Temp Pulse Resp BP Pulse Ox 99.6 F 83 18 122/66 95 10/02/17 16:47 10/02/17 18:15 10/02/17 16:47 10/02/17 18:15 10/02/17 16:47 - Laboratory Laboratory results interpreted by me: 10/02/17 10/02/17 10/02/17 14:36 14:36 14:36 WBC RBC Hgb Hct RDW Seg Neutrophils % Lymphocytes % Absolute Neutrophils Chloride Anion Gap BUN Creatinine Est GFR ( Amer) Est GFR (Non-Af Amer) Glucose CSF WBC 15 H 16 H CSF Glucose 148 H CSF Total Protein 69 H 10/02/17 10/02/17 14:49 14:49 WBC 14.4 H RBC 3.25 L Hgb 10.4 L Hct 30.5 L RDW 15.5 H Seg Neutrophils % 83.2 H Lymphocytes % 8.6 L Absolute Neutrophils 12.0 H Chloride 91 L Anion Gap 24 H BUN 64 H Creatinine 19.04 H Est GFR ( Amer) 3 L Est GFR (Non-Af Amer) 2 L Glucose 254 H CSF WBC CSF Glucose CSF Total Protein Procedures - Lumbar Puncture Lumbar puncture Time completed: 14:30 Consent obtained: Yes Lumbar puncture pre-procedure: Sterile PPE donned, Betadine prep applied, Chloraprep applied, Sterile drapes applied Patient position: Sitting Lumbar puncture location: L4-L5 Anesthetic type: 1% Lidocaine mL's of anesthetic: 5 Amount/type of drainage: clear Number of attempts: 2 Complications: No <CHAD GUZMAN - Last Filed: 10/02/17 18:20> <REJI VILCHIS - Last Filed: 10/02/17 18:31> - Lumbar Puncture Lumbar puncture Notes: 10/02/17 14:41 Dr. Vilchis performed (CHAD GUZMAN) Discharge - Discharge Admitting Provider: [facility] Admitted: [facility] <CHAD GUZMAN - Last Filed: 10/02/17 18:20> <REJI VILCHIS - Last Filed: 10/02/17 18:31> - Discharge Clinical Impression: End stage renal disease on dialysis Fever Qualifiers: Fever type: unspecified Qualified Code(s): R50.9 - Fever, unspecified Headache Qualifiers: Headache type: unspecified Headache chronicity pattern: unspecified pattern Intractability: not intractable Qualified Code(s): R51 - Headache Condition: Stable Disposition: ADMITTED INPATIENT Referrals: MOJGAN IVCKERS MD [Primary Care Provider] - Follow up as needed
[2017-10-02] MEDS ORDERED: MIDAZOLAM 2 MG/2 ML INJ IM ONE (14:00)
[2017-10-02] MEDS ORDERED: MEROPENEM 1 GM VIAL IV ONE (14:36)
[2017-10-02] MEDS ORDERED: VANCOMYCIN HCL INJ 1000 MG VIAL IV ONE (14:38)
[2017-10-02] MEDS ORDERED: IBUPROFEN 800 MG TABLET PO ONE (14:42)
[2017-10-02] MEDS ORDERED: LIDOCAINE 2% INJ-PF (100 MG/5 ML) SYRINGE ONE (14:52)
[2017-10-02] MEDS ORDERED: LIDOCAINE 2% JELLY 5 ML TUBE ONE (14:53)
[2017-10-02 15:03] LABS: ABSOLUTE LYMPHOCYTES (AUTO) 1.2 10^3/uL (0.5-4.7); ABSOLUTE MONOCYTES (AUTO) 1.1 10^3/uL (0.1-1.4); BASOPHILS % (AUTO) 0.3 % (0-2); EOSINOPHILS % (AUTO) 0.2 % (0-6); HEMATOCRIT 30.5 % (36.0-47.0); HEMOGLOBIN 10.4 g/dL (12.0-15.5); LYMPHOCYTES % (AUTO) 8.6 % (13-45); MEAN CORPUSCULAR HEMOGLOBIN 32.1 pg (27.0-33.4); MEAN CORPUSCULAR HGB CONC 34.2 g/dL (32.0-36.0); MEAN CORPUSCULAR VOLUME 94 fl (80-97); MONOCYTES % (AUTO) 7.7 % (3-13); PLATELET COUNT 188 10^3/uL (150-450); RED BLOOD COUNT 3.25 10^6/uL (3.72-5.28); RED CELL DISTRIBUTION WIDTH 15.5 % (11.5-14.0); SEGMENTED NEUTROPHILS % (AUTO) 83.2 % (42-78); TOTAL CELLS COUNTED % (AUTO) 100 %; WHITE BLOOD COUNT 14.4 10^3/uL (4.0-10.5)
--- NOTE | 2017-10-02 15:22 | RADIOLOGY REPORT (SQ) ---
EXAM DESCRIPTION: CT HEAD WITHOUT COMPLETED DATE/TIME: 10/02/2017 3:11 pm REASON FOR STUDY: sudden onset headache COMPARISON: 09/27/2015 TECHNIQUE: Axial images acquired through the brain without intravenous contrast. Images reviewed wi th bone, brain and subdural windows. Additional sagittal and coronal reconstructions were generated. Images stored on PACS. All CT scanners at this facility use dose modulation, iterative reconstruction, and/or weight based d osing when appropriate to reduce radiation dose to as low as reasonably achievable (ALARA). [facility]: Dose Right [facility]: CareDose [facility]: Dose Right [facility]: Teradose 4D [facility]: Smart [employer] RADIATION DOSE: CT Rad equipment meets quality standard of care and radiation dose reduction techniq ues were employed. CTDIvol: 53.2 mGy. DLP: 1017 mGy-cm. mGy. LIMITATIONS: None. FINDINGS: VENTRICLES: Normal size and contour. CEREBRUM: No masses. No hemorrhage. No midline shift. No evidence for acute infarction. Normal gra y/white matter differentiation. No areas of low density in the white matter. CEREBELLUM: No masses. No hemorrhage. No alteration of density. No evidence for acute infarction. EXTRAAXIAL SPACES: No fluid collections. No masses. ORBITS AND GLOBE: No intra- or extraconal masses. Normal contour of globe without masses. CALVARIUM: No fracture. PARANASAL SINUSES: No fluid or mucosal thickening. SOFT TISSUES: No mass or hematoma. OTHER: No other significant finding. IMPRESSION: NORMAL BRAIN CT WITHOUT CONTRAST. EVIDENCE OF ACUTE STROKE: NO. COMMENT: Quality ID # [id number]: Final reports with documentation of one or more dose reduction techniques (e.g., Automated exposure control, adjustment of the mA and/or kV according to patient size, use of iterative reconstruction technique) TECHNICAL DOCUMENTATION: JOB ID: [id number] [employer]- All Rights Reserved Reading location - IP/workstation name: [email or web address]
[2017-10-02 15:24] LABS: ALANINE AMINOTRANSFERASE 29 U/L (9-52); ALBUMIN 3.5 g/dL (3.5-5.0); ALKALINE PHOSPHATASE 105 U/L (38-126); ASPARTATE AMINO TRANSFERASE 16 U/L (14-36); BLOOD UREA NITROGEN 64 mg/dL (7-20); CALCIUM 9.3 mg/dL (8.4-10.2); GLUCOSE 254 mg/dL (75-110); POTASSIUM 4.2 mmol/L (3.6-5.0); TOTAL PROTEIN 7.4 g/dL (6.3-8.2)
[2017-10-02 15:36] LABS: GLUCOSE,CSF 148 mg/dL (40-70); PROTEIN,CSF 69 mg/dL (12-60)
[2017-10-02] MEDS ORDERED: ACYCLOVIR 800 MG TABLET PO ONE (15:58)
[2017-10-02 16:03] LABS: BILIRUBIN,TOTAL 0.4 mg/dL (0.2-1.3)
[2017-10-02 16:11] LABS: BILIRUBIN,DIRECT 0.4 mg/dL (0.0-0.4)
[2017-10-02 16:13] LABS: CHLORIDE 91 mmol/L (98-107)
[2017-10-02 16:14] LABS: ANION GAP 24 (5-19); CARBON DIOXIDE 25 mmol/L (22-30); SODIUM 139.8 mmol/L (137-145)
[2017-10-02 16:47] LABS: CSF TUBE NUMBER 1
[2017-10-02 16:48] LABS: APPEARANCE ALL TUBES CLEAR; APPEARANCE TUBE 1 CLEAR; APPEARANCE TUBE 2 CLEAR; APPEARANCE TUBE 3 CLEAR; APPEARANCE TUBE 4 CLEAR; COLOR ALL TUBES COLORLESS; COLOR TUBE 1 COLORLESS; COLOR TUBE 2 COLORLESS; COLOR TUBE 3 COLORLESS; COLOR TUBE 4 COLORLESS; VOLUME TUBE 1 1.5 CC; VOLUME TUBE 4 2.5 CC
[2017-10-02 16:49] LABS: RED BLOOD CELL,CSF 20 /uL (0-10)
[2017-10-02 16:50] LABS: CSF TUBE NUMBER 4; WHITE BLOOD CELL,CSF 15 /uL (0-5)
[2017-10-02 16:51] LABS: APPEARANCE ALL TUBES CLEAR; APPEARANCE TUBE 1 CLEAR; APPEARANCE TUBE 2 CLEAR; APPEARANCE TUBE 3 CLEAR; APPEARANCE TUBE 4 CLEAR; COLOR ALL TUBES COLORLESS; COLOR TUBE 1 COLORLESS; COLOR TUBE 2 COLORLESS; COLOR TUBE 3 COLORLESS; COLOR TUBE 4 COLORLESS; VOLUME TUBE 1 1.5 CC; VOLUME TUBE 4 2.5 CC
[2017-10-02 16:52] LABS: RED BLOOD CELL,CSF 0 /uL (0-10); WHITE BLOOD CELL,CSF 16 /uL (0-5)
[2017-10-02] MEDS ORDERED: VANCOMYCIN HCL 0 MG in DEXTROSE 5%-WATER 250 ML IV NR (18:30)
[2017-10-02] MEDS ORDERED: DEXTROSE 40% GEL 15 GM TUBE PO PRN ×2 (18:32)
[2017-10-02] MEDS ORDERED: DEXTROSE 50%-WATER 25 GM/50 ML DISP.SYRIN IV PRN ×2 (18:32)
[2017-10-02] MEDS ORDERED: GLUCAGON,HUMAN RECOMB 1 MG INJ IM PRN (18:32)
--- NOTE | 2017-10-02 18:43 | RADIOLOGY REPORT (SQ) ---
EXAM DESCRIPTION: CHEST SINGLE VIEW COMPLETED DATE/TIME: 10/02/2017 6:35 pm REASON FOR STUDY: cough, fever COMPARISON: 09/30/2017 EXAM PARAMETERS: NUMBER OF VIEWS: One view. TECHNIQUE: Single frontal radiographic view of the chest acquired. RADIATION DOSE: NA LIMITATIONS: None. FINDINGS: LUNGS AND PLEURA: There is patchy airspace consolidation in the left upper lung field cons istent with a patchy pneumonic infiltrate. MEDIASTINUM AND HILAR STRUCTURES: No masses. Contour normal. HEART AND VASCULAR STRUCTURES: The configuration of the heart and mediastinal structures is unchanged . BONES: No acute findings. HARDWARE: None in the chest. OTHER: No other significant finding. IMPRESSION: Patchy pneumonic infiltrate in the left upper lung field. TECHNICAL DOCUMENTATION: JOB ID: [id number] [employer]- All Rights Reserved Reading location - IP/workstation name: [email or web address]
--- NOTE | 2017-10-02 19:19 | HISTORY AND PHYSICAL E ---
History and Physical NAME: NOELLE ARGUETA : 1980 AGE: 37Y ADMITTED: 10/02/2017 ROOM: ED06 CHIEF COMPLAINT: Fever, headache, nausea. HISTORY OF THE PRESENT ILLNESS: This is a 37-year-old female who presented in my office today with the complaint of fever, chills, headache, and nausea since the last 3 days. According to the patient started on Saturday. The patient went to the emergency department on 09/30/17 and the patient had blood work done and chest x-ray done, which blood work showed some elevated white count but other than that everything was stable and the patient was discharged home. The patient also went to see neurology this morning for the leg issues and came to my office this afternoon where the patient's fever was 100.3 in our office, but according to the patient was 102 at home. The patient otherwise denied any weakness, denied any photophobia, denied any other symptoms but the patient has a PD dialysis and the concern about possible peritonitis versus meningitis, and at this point the patient was guidanced to go to the emergency department. I discussed with the emergency department physician for further evaluation. The patient in the emergency department had extensive evaluation done including the CSF cultures with WBC of 15 and glucose was elevated and protein was high, and *------* lymphocyte with pretty much glucose is high so just no sign of bacterial meningitis, possible viral but elevated white count. The patient was covered with meropenem, vancomycin, and acyclovir already in the ER. At this point ER physicians, we ordered the influenza test and ordered a CT abdomen and pelvis and peritoneal fluid is still pending. I discussed with nephrology, Dr. Osorio, and decided to admit in the IMCU for further evaluation and treatment and all the cultures were drawn, and the patient agreed with the plan. So patient after receiving the Tylenol and patient's fever is coming down and the patient feels better right now. The patient, otherwise, denied any chest pain. The patient was complaining of some mild cough for the last couple of days. Denied any shortness of breath. No abdominal pain. Not any urinary symptoms present. Has a history of abscess skin problem in the past and at this point there is no sign of any abscess seen, and they decided to admit for further workup. PAST MEDICAL HISTORY: 1. History of type 2 diabetes mellitus. 2. History of end-stage renal disease, currently on a PD catheter dialysis. 3. History of hypertension. 4. History of hyperlipidemia. 5. History of right atrial thrombus. 6. History of pulmonary embolism in the past. ALLERGIES: 1. KEFLEX. 2. MORPHINE. 3. SULFA. 4. TRAMADOL. 5. TRIMETHOPRIM. 6. PENICILLINS. SOCIAL HISTORY: No smoking, no alcohol, no substance/drug abuse. PAST SURGICAL HISTORY: 1. Knee surgery. 2. Fistula placement. 3. The patient also had an I and D. CURRENT MEDICATIONS: 1. Lyrica. 2. Renagel. 3. Lantus. 4. NovoLog. 5. Clonidine. 6. Folic acid. 7. Amlodipine. REVIEW OF SYSTEMS: As above, all reported negative. PHYSICAL EXAMINATION: VITAL SIGNS: Temperature is 102.1, pulse was 83, blood pressure was 122/66, respirations was 18, O2 saturation is 95% on room air. GENERAL: The patient is alert, awake, oriented x3, there was no acute distress. HEAD AND NECK: Normocephalic. PERRLA. LUNGS: No wheezing, no rales, no rhonchi. HEART: S1, S2 is present. ABDOMEN: Soft. Bowel sounds are present. *------* intake fluid is very clear. EXTREMITIES: No edema. SKIN: No sign of any abscess or redness seen. NEUROLOGIC: The patient moves all 4 extremities. Alert, awake, oriented x3. No meningeal sign is noted at this point. The patient, otherwise, gait is normal. IMAGING STUDIES: Head CT was negative for any acute finding. LABORATORY DATA: WBC is 14.4, hemoglobin is 10.4, and platelet count is 188, segmented neutrophils 83.2, and absolute is 12.0. The patient's chemistry; sodium is 139, potassium 4.2, BUN is 64, creatinine is 19.04. The patient's glucose is 254, calcium is 9.3, and AST is 16, ALT is 19, alkaline phosphatase is 105, and total bilirubin is 0.4. Other workup/other body sources; the patient's CSF the volume is 7.0, appearance is clear, color is colorless, WBC is 15. The patient's lymphocyte is 98, segmented neutrophils only 1, glucose is 148, and total protein is 69. ASSESSMENT: 1. Fever with headache, rule out viral versus bacterial meningitis and rule out the other infectious sources including the peritonitis. 2. End-stage renal disease on peritoneal dialysis catheter. 3. Hypertension. 4. Hyperlipidemia. 5. Type 2 diabetes mellitus. PLAN: The plan is at this point admit the patient in IMCU. The patient already covered with broad spectrum antibiotics and antiviral drugs. The patient's CSF culture was all drawn and waiting for the final reports. Initial CSF fluid with elevated white count and elevated glucose but predominantly lymphocytes and a glucose most likely related to the diabetes and the protein is slightly elevated, not really a sign of bacterial meningitis, it is possible it may be a viral, but we will continue to cover with antibiotic until all the cultures are back. The patient will get the flu test to rule out any influenza with the high grade fever and the headaches. The patient's CT head is all negative. The patient does not have any real meningeal sign at this point. The patient is otherwise fully alert, awake, and oriented x3. Discussed with Dr. Osorio regarding the nephrology standpoint. Adjust the medication dose. Continue the PD catheter dialysis and continue to monitor the patient. TIME SPENT: More than 45 minutes spend examining the patient with all coordinated cares. DICTATING PHYSICIAN: MOJGAN PACE M.D. [id number] [facility]#: [id number] ID: [id number] JOB#: [id number] ACCT: [id number] cc:MOJGAN PACE M.D. >
--- NOTE | 2017-10-02 20:10 | RADIOLOGY REPORT (SQ) ---
EXAM DESCRIPTION: CT ABD/PELVIS NO ORAL OR IV COMPLETED DATE/TIME: 10/02/2017 7:42 pm REASON FOR STUDY: peritoneal dialysis/fever COMPARISON: 09/27/2015 TECHNIQUE: CT scan of the abdomen and pelvis performed without intravenous contrast. Oral contrast was given. Images reviewed with lung, soft tissue, and bone windows. Reconstructed coronal and sagit angelita MPR images reviewed. All images stored on PACS. All CT scanners at this facility use dose modulation, iterative reconstruction, and/or weight based d osing when appropriate to reduce radiation dose to as low as reasonably achievable (ALARA). [facility]: Dose Right [facility]: CareDose [facility]: Dose Right [facility]: Teradose 4D [facility]: Smart [employer] ([employer]) RADIATION DOSE: CT Rad equipment meets quality standard of care and radiation dose reduction techniq ues were employed. CTDIvol: 15.4 mGy. DLP: 877 mGy-cm.mGy. LIMITATIONS: None. FINDINGS: LOWER CHEST: There is opacification in the left lower lobe. NON-CONTRASTED LIVER, SPLEEN, ADRENALS: Evaluation limited by lack of IV contrast. No identified sign ificant masses. PANCREAS: No masses. No peripancreatic inflammatory changes. GALLBLADDER: No identified stones by CT criteria. No inflammatory changes to suggest cholecystitis. RIGHT KIDNEY AND URETER: No suspicious masses. Assessment limited by lack of IV contrast. Renal vas cular calcifications. No hydronephrosis or hydroureter. LEFT KIDNEY AND URETER: No suspicious masses. Assessment limited by lack of IV contrast. Renal vasc ular calcifications. No hydronephrosis or hydroureter. AORTA AND RETROPERITONEUM: No aneurysm. No retroperitoneal masses or adenopathy. BOWEL AND PERITONEAL CAVITY: No obvious masses or inflammatory changes. There is a moderate amount o f free fluid in the abdomen. APPENDIX: Normal. PELVIS, BLADDER, AND ABDOMINAL WALL:Anteriorly. BONES: No significant findings. OTHER: A catheter is present on the left that extends into the true pelvis anterior to the uterus. IMPRESSION: 1. Possible left lower lobe pneumonia. 2. There is free fluid in the abdomen. Likely ascites. Does patient received peritoneal dialysis? 3. There is a catheter that extends into the pelvis. COMMENT: Quality ID # [id number]: Final reports with documentation of one or more dose reduction techniques (e.g., Automated exposure control, adjustment of the mA and/or kV according to patient size, use of iterative reconstruction technique) TECHNICAL DOCUMENTATION: JOB ID: [id number] [employer]- All Rights Reserved Reading location - IP/workstation name: [email or web address]
[2017-10-02] MEDS ORDERED: FAMOTIDINE 20 MG TABLET PO SCH (22:00)
[2017-10-02] MEDS ORDERED: ACYCLOVIR SODIUM 500 MG in NORMAL SALINE 100 ML IV SCH (22:00)
[2017-10-02] MEDS ORDERED: MEROPENEM 1 GM in NORMAL SALINE 50 ML IV SCH (22:00)
[2017-10-02 22:05] LABS: A TYPE INFLUENZA AG NEGATIVE (NEGATIVE); B INFLUENZA AG NEGATIVE (NEGATIVE)
[2017-10-03] MEDS: HEPARIN SOD (PORCINE) 5,000 UNIT/ML 1 ML SYRINGE SUBCUT SCH ×4 (00:51→22:22)
[2017-10-03] MEDS: FAMOTIDINE 20 MG TABLET PO SCH ×2 (00:58→22:21)
[2017-10-03] MEDS: ONDANSETRON HCL INJ/PF 4 MG/2 ML SDV IV PRN (00:59)
[2017-10-03] MEDS: ZOLPIDEM TARTRATE 5 MG TABLET PO SCH ×2 (00:59→22:21)
[2017-10-03] MEDS: PREGABALIN 50 MG CAPSULE PO SCH ×3 (00:59→22:21)
[2017-10-03] MEDS: ACETAMINOPHEN 325 MG TABLET PO PRN ×3 (01:02→13:15)
[2017-10-03 06:41] LABS: ABSOLUTE BASOPHILS # (AUTO) 0.1 10^3/uL (0.0-0.2); ABSOLUTE EOSINOPHILS # (AUTO) 0.1 10^3/uL (0.0-0.6); ABSOLUTE LYMPHOCYTES (AUTO) 1.1 10^3/uL (0.5-4.7); ABSOLUTE MONOCYTES (AUTO) 1.1 10^3/uL (0.1-1.4); ABSOLUTE NEUT (AUTO) 9.2 10^3/uL (1.7-8.2); BASOPHILS % (AUTO) 0.5 % (0-2); HEMATOCRIT 30.2 % (36.0-47.0); HEMOGLOBIN 10.4 g/dL (12.0-15.5); LYMPHOCYTES % (AUTO) 9.4 % (13-45); MEAN CORPUSCULAR HEMOGLOBIN 32.1 pg (27.0-33.4); MEAN CORPUSCULAR HGB CONC 34.3 g/dL (32.0-36.0); MEAN CORPUSCULAR VOLUME 94 fl (80-97); MONOCYTES % (AUTO) 9.9 % (3-13); PLATELET COUNT 170 10^3/uL (150-450); RED BLOOD COUNT 3.23 10^6/uL (3.72-5.28); RED CELL DISTRIBUTION WIDTH 15.4 % (11.5-14.0); SEGMENTED NEUTROPHILS % (AUTO) 79.2 % (42-78); TOTAL CELLS COUNTED % (AUTO) 100 %; WHITE BLOOD COUNT 11.6 10^3/uL (4.0-10.5)
[2017-10-03 06:50] LABS: ALBUMIN 3.3 g/dL (3.5-5.0); BILIRUBIN,TOTAL 0.4 mg/dL (0.2-1.3); CALCIUM 9.2 mg/dL (8.4-10.2); CHLORIDE 92 mmol/L (98-107); GLUCOSE 215 mg/dL (75-110); TOTAL PROTEIN 6.7 g/dL (6.3-8.2)
[2017-10-03 07:08] LABS: BLOOD UREA NITROGEN 65 mg/dL (7-20); POTASSIUM 4.1 mmol/L (3.6-5.0)
[2017-10-03 07:09] LABS: ALANINE AMINOTRANSFERASE 25 U/L (9-52); ALKALINE PHOSPHATASE 94 U/L (38-126); ASPARTATE AMINO TRANSFERASE 15 U/L (14-36)
[2017-10-03 07:14] LABS: CARBON DIOXIDE 24 mmol/L (22-30); SODIUM 139.3 mmol/L (137-145)
[2017-10-03 07:15] LABS: ANION GAP 23 (5-19)
[2017-10-03] MEDS ORDERED: POLYETHYLENE GLYCOL 3350 POWDER 17 GM/1 PACKET PO PRN (09:11)
[2017-10-03] MEDS ORDERED: ACYCLOVIR SODIUM 500 MG in NORMAL SALINE 100 ML IV SCH (10:00)
--- NOTE | 2017-10-03 10:05 | PDOC CONSULTATION ---
Consultation Consult Date: 10/03/17 Consult reason:: maintainence of peritoneal dialysis History of Present Illness Admission Date/PCP: 10/02/17 18:33 MOJGAN PACE MD History of Present Illness: NOELLE ARGUETA is a 37 year old female History of long-standing diabetes mellitus, hypertension and ESRD on peritoneal dialysis was admitted yesterday with headaches and a fever. Differential diagnosis included possible meningitis/viral illness. She went on to have lumbar puncture which came back showing a high likelihood of a viral meningitis like picture. She denied any history of abdominal pains and any cloudy effluent from her peritoneal dialysis. She does not give any history of skin infection in the groin like when she had her issue rectal abscess in the past. She admits to a dry cough without any history of chest pain or shortness of breath. I discussed with the ER provider yesterday for a cell count besides cultures and Gram stain. Unfortunately the PD fluid studies did not include a cell count from the ER. Further cell count studies will be done today. Patient has been started on broad-spectrum antibiotics as per discussions done extensively with Dr. Pace yesterday. She still continues to have headaches today but maybe not as severe as it was yesterday. No complaints of any nausea vomiting, skin rash. No history of photophobia.Labs and medications were reviewed.She is undergoing peritoneal dialysis without any issues. Orders were discussed again with the treating dialysis nurse on the floor. She admits to having constipation and given to treat that with soapsuds enema. Past Medical History Cardiac Medical History: Reports: Hypertension-primary Denies: Coronary Artery Disease, Myocardial Infarction Pulmonary Medical History: Denies: Asthma, Bronchitis, Chronic Obstructive Pulmonary Disease (COPD), Pneumonia Neurological Medical History: Denies: Seizures Endocrine Medical History: Reports: Diabetes Mellitus Type 2 Renal/ Medical History: Reports: End Stage Renal Disease - peritoneal dialysis , Secondary Hyperparathyroidism Musculoskeltal Medical History: Denies: Arthritis Psychiatric Medical History: Denies: Depression Infectious Medical History: Reports: Methicillin-resist Staph Aureus Hematology Medical History: Reports Anemia of Chronic Kidney Disease Past Surgical History Past Surgical History: Reports: Orthopedic Surgery, Vascular Surgery - PermCath , peritoneal dialysis Social History Smoking Status: Never Smoker Frequency of Alcohol Use: None Hx Recreational Drug Use: No Drugs: None Hx Prescription Drug Abuse: No Family History Parental Family History Reviewed: Yes - Negative for ESRD. Children Family History Reviewed: No Sibling(s) Family History Reviewed.: No Medication/Allergy Home Medications: Calcitriol [Rocaltrol 0.5 mcg Capsule] 0.5 mcg PO MOWEFR@1000 10/02/17 Clonidine HCl [Catapres 0.1 mg Tablet] 0.1 mg PO DAILY 10/02/17 Clonidine HCl [Catapres 0.1 mg Tablet] 0.2 mg PO QHS 10/02/17 Ferric Citrate [Auryxia] 210 mg PO QPM 10/02/17 Ferric Citrate [Auryxia] 420 mg PO BIDBL 10/02/17 Pregabalin [Lyrica 50 mg Capsule] 50 mg PO Q12 10/02/17 Ropinirole HCl [Requip] 5 mg PO DAILY 10/02/17 Vit B Comp No.3/Folic/C/Biotin [Tonya-Viviana Rx Tablet] 1 tab PO DAILY 10/02/17 Zolpidem Tartrate [Ambien 5 mg Tablet] 5 mg PO QHS 10/02/17 Allergies/Adverse Reactions: cephalexin monohydrate [From Keflex] Allergy (Severe, Verified 10/02/17 12:07) Hives clindamycin [Clindamycin] Allergy (Severe, Verified 10/02/17 12:07) Hives morphine [Morphine] Allergy (Severe, Verified 10/02/17 12:07) Hives Sulfa (Sulfonamide Antibiotics) Allergy (Severe, Verified 10/02/17 12:07) Hives tramadol [Tramadol] Allergy (Severe, Verified 10/02/17 12:07) Hives trimethoprim [From Bactrim] Allergy (Severe, Verified 10/02/17 12:07) Penicillins Allergy (Verified 10/02/17 12:07) sulfamethoxazole [From Bactrim] Allergy (Verified 10/02/17 12:07) Review of Systems Constitutional: PRESENT: fatigue, fever(s), headache(s). ABSENT: night sweats, weakness Nose, Mouth, and Throat: PRESENT: headache(s). ABSENT: mouth pain, sore throat Cardiovascular: ABSENT: dyspnea on exertion, edema, orthropnea, palpitations Respiratory: ABSENT: as per HPI, dyspnea, hemoptysis Gastrointestinal: PRESENT: constipation. ABSENT: abdominal pain, bloating, diarrhea, dysphagia, hematemesis, hematochezia, melena Musculoskeletal: ABSENT: deformity, joint swelling Integumentary: ABSENT: erythema, lesions, pruritus, rash Neurological: ABSENT: abnormal movements, abnormal speech, confusion, convulsions, focal weakness Hematologic/Lymphatic: ABSENT: easy bruising, lymphadenopathy Physical Exam Vital Signs: Temp Pulse Resp BP Pulse Ox 100.7 F H 84 16 117/63 90 L 10/03/17 07:52 10/03/17 07:52 10/03/17 07:52 10/03/17 07:52 10/03/17 07:52 Intake & Output 10/02/17 10/03/17 10/04/17 06:59 06:59 06:59 Intake Total 4005 Output Total 4300 Balance -295 Weight 92.4 kg General appearance: PRESENT: no acute distress Eye exam: PRESENT: conjunctiva pink, EOMI, PERRLA Ear exam: PRESENT: normal external ear exam Mouth exam: PRESENT: moist, neck supple Neck exam: PRESENT: meningismus - ?. ABSENT: lymphadenopathy, tenderness, thyromegaly, tracheal deviation Respiratory exam: PRESENT: clear to auscultation ellie, decreased breath sounds, symmetrical. ABSENT: crackles Cardiovascular exam: PRESENT: +S1, +S2 GI/Abdominal exam: PRESENT: normal bowel sounds, soft. ABSENT: guarding, organomegaly, tenderness Neurological exam: PRESENT: alert, awake, oriented to person, oriented to place , CN II-XII grossly intact - There was no nuchal rigidity.Pupils were equal and reacting to light. Psychiatric exam: PRESENT: appropriate affect Skin exam: ABSENT: cyanosis, erythema, mottled Results Laboratory Results: 10/03/17 05:28 10/03/17 05:28 10/03/17 10/03/17 05:28 05:28 WBC 11.6 H RBC 3.23 L Hgb 10.4 L Hct 30.2 L MCV 94 MCH 32.1 MCHC 34.3 RDW 15.4 H Plt Count 170 Seg Neutrophils % 79.2 H Lymphocytes % 9.4 L Monocytes % 9.9 Eosinophils % 1.0 Basophils % 0.5 Absolute Neutrophils 9.2 H Absolute Lymphocytes 1.1 Absolute Monocytes 1.1 Absolute Eosinophils 0.1 Absolute Basophils 0.1 Sodium 139.3 Potassium 4.1 Chloride 92 L Carbon Dioxide 24 Anion Gap 23 H BUN 65 H Creatinine 18.18 H Est GFR ( Amer) 3 L Est GFR (Non-Af Amer) 2 L Glucose 215 H Calcium 9.2 Total Bilirubin 0.4 AST 15 ALT 25 Alkaline Phosphatase 94 Total Protein 6.7 Albumin 3.3 L Impressions: Head CT 10/02/17 13:15 IMPRESSION: NORMAL BRAIN CT WITHOUT CONTRAST. EVIDENCE OF ACUTE STROKE: NO. Chest X-Ray 10/02/17 18:17 IMPRESSION: Patchy pneumonic infiltrate in the left upper lung field. Abdomen/Pelvis CT 10/02/17 19:03 IMPRESSION: 1. Possible left lower lobe pneumonia. 2. There is free fluid in the abdomen. Likely ascites. Does patient received peritoneal dialysis? 3. There is a catheter that extends into the pelvis. Assessment & Plan - Diagnosis (1) Viral meningitis, unspecified Plan: Management as per Dr. Pace. (2) End stage renal disease on dialysis Plan: We get a cell count now. Orders have been placed for peritoneal dialysis every 6 hours. Orders were discussed with the treating nurse. (3) Headache Qualifiers: Headache type: unspecified Headache chronicity pattern: unspecified pattern Intractability: not intractable Qualified Code(s): R51 - Headache Plan: Likely from possible meningitis. She is improving. (4) HTN (hypertension) Plan: Controlled. Continue current medications. (5) Diabetes mellitus Plan: Advised tight diabetic control. (6) Pneumonia Qualifiers: Lung location: unspecified part of lung Is this a current diagnosis for this admission?: No Plan: Chest x-ray showed left patchy pneumonia and the follow-up CT scan shows left upper lobe consolidation. Patient currently on broad-spectrum antibiotics. (7) Constipation Plan: Ordered soapsuds enema.
--- NOTE | 2017-10-03 10:54 | PDOC PROGRESS REPORT ---
Subjective Progress Note for:: 10/03/17 Subjective:: Patient is currently doing wellStill have a fever and still have a headache but denied any photophobia denied any neck pain Patient's initial cultures most likely suggests some viral origins but patients have a some positive finding in the lung with the possible pneumonia also And have a some cough congestion's for the last 1 week Patient's denied any pain denied any shortness of the breath Patient's however no confusion's fully alert awake oriented 3 Reason For Visit: FEVER/HEADACHE Physical Exam Vital Signs: Temp Pulse Resp BP Pulse Ox 100.7 F H 84 16 117/63 90 L 10/03/17 07:52 10/03/17 07:52 10/03/17 07:52 10/03/17 07:52 10/03/17 07:52 Intake & Output 10/02/17 10/03/17 10/04/17 06:59 06:59 06:59 Intake Total 4005 Output Total 4300 Balance -295 Weight 92.4 kg General appearance: PRESENT: no acute distress, well-developed, well-nourished Head exam: PRESENT: atraumatic, normocephalic Eye exam: PRESENT: conjunctiva pink, EOMI, PERRLA. ABSENT: scleral icterus Ear exam: PRESENT: normal external ear exam Mouth exam: PRESENT: moist, tongue midline Neck exam: PRESENT: full ROM. ABSENT: carotid bruit, JVD, lymphadenopathy, thyromegaly Respiratory exam: PRESENT: clear to auscultation ellie Cardiovascular exam: PRESENT: RRR. ABSENT: diastolic murmur, rubs, systolic murmur Pulses: PRESENT: normal dorsalis pedis pul, +2 pedal pulses bilateral Vascular exam: PRESENT: normal capillary refill GI/Abdominal exam: PRESENT: normal bowel sounds, soft. ABSENT: distended, guarding, mass, organolmegaly, rebound, tenderness Rectal exam: PRESENT: deferred Neurological exam: PRESENT: alert, awake, oriented to person, oriented to place , oriented to time, oriented to situation, CN II-XII grossly intact. ABSENT: motor sensory deficit Psychiatric exam: PRESENT: appropriate affect, normal mood. ABSENT: homicidal ideation, suicidal ideation Skin exam: PRESENT: dry, intact, warm. ABSENT: cyanosis, rash Results Laboratory Results: 10/03/17 05:28 10/03/17 05:28 10/03/17 10/03/17 05:28 05:28 WBC 11.6 H RBC 3.23 L Hgb 10.4 L Hct 30.2 L MCV 94 MCH 32.1 MCHC 34.3 RDW 15.4 H Plt Count 170 Seg Neutrophils % 79.2 H Lymphocytes % 9.4 L Monocytes % 9.9 Eosinophils % 1.0 Basophils % 0.5 Absolute Neutrophils 9.2 H Absolute Lymphocytes 1.1 Absolute Monocytes 1.1 Absolute Eosinophils 0.1 Absolute Basophils 0.1 Sodium 139.3 Potassium 4.1 Chloride 92 L Carbon Dioxide 24 Anion Gap 23 H BUN 65 H Creatinine 18.18 H Est GFR ( Amer) 3 L Est GFR (Non-Af Amer) 2 L Glucose 215 H Calcium 9.2 Total Bilirubin 0.4 AST 15 ALT 25 Alkaline Phosphatase 94 Total Protein 6.7 Albumin 3.3 L Impressions: Head CT 10/02/17 13:15 IMPRESSION: NORMAL BRAIN CT WITHOUT CONTRAST. EVIDENCE OF ACUTE STROKE: NO. Chest X-Ray 10/02/17 18:17 IMPRESSION: Patchy pneumonic infiltrate in the left upper lung field. Abdomen/Pelvis CT 10/02/17 19:03 IMPRESSION: 1. Possible left lower lobe pneumonia. 2. There is free fluid in the abdomen. Likely ascites. Does patient received peritoneal dialysis? 3. There is a catheter that extends into the pelvis. Assessment & Plan - Diagnosis (1) Viral meningitis, unspecified Is this a current diagnosis for this admission?: Yes Plan: Continues to cover all IV antibiotic until all cultures come back initial CSF culture was negative Patient's currently other dialysis fluid is very restricted to give it to the patient's (2) Fever Qualifiers: Fever type: unspecified Qualified Code(s): R50.9 - Fever, unspecified Is this a current diagnosis for this admission?: Yes Plan: Multiple etiology possible underlying pneumonia which is most likely (3) Pneumonia Qualifiers: Lung location: unspecified part of lung Is this a current diagnosis for this admission?: No Plan: Continues IV antibiotic (4) Diabetes mellitus Is this a current diagnosis for this admission?: Yes Plan: Continues to current medications (5) End stage renal disease on dialysis Is this a current diagnosis for this admission?: Yes Plan: Currently on the PD dialysis (6) Anemia Qualifiers: Anemia type: unspecified type Qualified Code(s): D64.9 - Anemia, unspecified Is this a current diagnosis for this admission?: Yes (7) HTN (hypertension) Is this a current diagnosis for this admission?: Yes - Time Time Spent with patient: 15-24 minutes Medications reviewed and adjusted accordingly: Yes Anticipated discharge: Home - Inpatient Certification Medical Necessity: Need Close Monitoring Due to Risk of Patient Decompensation, Need for IV Antibiotics Post Hospital Care: D/C Resource Conservation Specialist Documentation - Plan Summary Plan Summary: Continues to current medications
--- NOTE | 2017-10-03 10:57 | RADIOLOGY REPORT (SQ) ---
EXAM DESCRIPTION: CT CHEST WITHOUT COMPLETED DATE/TIME: 10/03/2017 10:39 am REASON FOR STUDY: fever/pnemonia COMPARISON: None. TECHNIQUE: CT scan performed of the chest without intravenous contrast. Images reviewed with lung, soft tissue and bone windows. Reconstructed coronal and sagittal MPR images reviewed. All images st ored on PACS. All CT scanners at this facility use dose modulation, iterative reconstruction, and/or weight based d osing when appropriate to reduce radiation dose to as low as reasonably achievable (ALARA). [facility]: Dose Right [facility]: CareDose [facility]: Dose Right [facility]: Teradose 4D [facility]: e[employer] RADIATION DOSE: CT Rad equipment meets quality standard of care and radiation dose reduction techniq ues were employed. CTDIvol: 16.4 mGy. DLP: 539 mGy-cm. mGy. LIMITATIONS: No technical limitations. FINDINGS: LUNGS AND PLEURA: Extensive consolidation in the left upper lobe. There are associated ai r bronchograms. No evidence of cavitation. Right lung is clear. No effusions. HILAR AND MEDIASTINAL STRUCTURES: No identified masses or abnormal nodes. No obvious aneurysm. HEART AND VASCULAR STRUCTURES: No aneurysm. No pericardial effusion. UPPER ABDOMEN: See separate report 10/02/2017. THYROID AND OTHER SOFT TISSUES: No masses. No adenopathy. BONES: No significant finding. HARDWARE: None in the chest. OTHER: No other significant findings. IMPRESSION: Left upper lobe pneumonia. TECHNICAL DOCUMENTATION: JOB ID: [id number] Quality ID # [id number]: Final reports with documentation of one or more dose reduction techniques (e.g., Au tomated exposure control, adjustment of the mA and/or kV according to patient size, use of iterative reconstruction technique) 2010 [employer]- All Rights Reserved Reading location - IP/workstation name: [email or web address]
[2017-10-03] MEDS: CLONIDINE HCL 0.1 MG TABLET PO SCH (11:12)
[2017-10-03] MEDS: INSULIN LISPRO 100 UNIT/ML 3 ML VIAL SUBCUT PRN ×3 (13:15→22:21)
[2017-10-03 14:48] LABS: FLUID APPEARANCE CLEAR; FLUID COLOR COLORLESS; FLUID SOURCE ABDOMEN; FLUID TYPE PERITONEAL; FLUID VISCOSITY LIQUID
[2017-10-03] MEDS: MEROPENEM 1 GM in NORMAL SALINE 50 ML IV SCH (17:26)
[2017-10-03] MEDS ORDERED: (PENDING PHARMACY ID) (Ferric Citrate [Auryxia] 210 MG) PO SCH (18:00)
--- NOTE | 2017-10-03 18:01 | Progress Note ---
Provider Note Provider Note: ID Consult Note / Telephone Consultation Asked by Pharmacy to review patient's chart. Pt not seen and examined. Reviewed chart including VS, labs, provider notes and imaging reports and CT and CXR images. Ms. Malloy is a 37 yo woman with pmh including HTN, DM and ESRD on peritoneal dialysis. She presented to the [place] ED on 10/02/17 with c/o fever and headache associated with some light sensitivity and cough. She denied any vomiting, diarrhea, neck pain, back pain or abdominal pain. She had fever to 102 on presentation. There was no nuchal rigidity or focal neurologic deficits or decreased level of consciousness, no abdominal tenderness, and no rhonchi on exam. She had leukocytosis to 14k. LP was performed with CSF WBC 15 (nearly all lymphocytes), glucose 148, total protein 69. Blood culture from 10/02 shows no growth in 24h. CSF gram stain and culture have been unrevealing/negative x 1 day. Repeat blood cx on 10/03 was also performed. Peritoneal fluid was sampled and has only 4 WBCs. Imaging studies included CXR showing patchy MERCEDES infiltrates , and CT chest redemonstrates the MERCEDES opacities concerning for pneumonia. The patient has allergy to Keflex, clindamycin, and sulfa listed as "hives" and unspecified allergy to penicillin. For possibility of meningitis, vancomycin and meropenem were begun. She has also been given acyclovir for possibility of HSV meningitis. Impression 1. MERCEDES pneumonia 2. Possible viral meningitis - Pt presented with fever, leukocytosis, headache, cough; CXR and CT scans of chest c/w MERCEDES pneumonia - CSF formula (very mild lymphocytic elevation in WBCs, lack of hypoglycorrhachia and very mild elevation in protein) from LP is not consistent with a bacterial meningitis and gram stain and culture are negative to date Recommendations - If pt has cough and can expectorate, send sputum for culture - Consider getting PPD if patient has not had one in the recent past; although MERCEDES infiltrate pattern is not suspicious for TB, it is an upper lobe infiltrate of unknown etiology at this time, and dialysis patients are potentially more at risk for active disease if there is exposure. - If BCx remain negative x 48h, discontinue vancomycin; MRSA is uncommon as a cause of community acquired pneumonia outside of specific settings, such as post -influenza (pt had negative influenza antigen test, and also nearly at the end of influenza season) - Meropenem dose can be lowered to that appropriate for treatment of pneumonia in peritoneal dialysis patient (if on CAPD, meropenem 500 mg q24h, but please check with pharmacist) - Consider discontinuing acyclovir IV. In contrast to encephalitis where treatment is mandatory, if pt has herpes meningitis, it will remit on its own ( acyclovir in herpes meningitis has not shown benefit, except perhaps reports in immunocompromised patients). Pt does not have signs described that suggest encephalitis. Reinaldo Gould MD [facility] Infectious Diseases pager [phone]
[2017-10-04] MEDS: ACETAMINOPHEN 325 MG TABLET PO PRN (00:28)
[2017-10-04] MEDS: ONDANSETRON HCL INJ/PF 4 MG/2 ML SDV IV PRN ×2 (00:28→06:18)
[2017-10-04] MEDS: HEPARIN SOD (PORCINE) 5,000 UNIT/ML 1 ML SYRINGE SUBCUT SCH ×3 (05:29→22:13)
[2017-10-04 07:13] LABS: ALANINE AMINOTRANSFERASE 27 U/L (9-52); ALBUMIN 3.1 g/dL (3.5-5.0); ALKALINE PHOSPHATASE 125 U/L (38-126); ASPARTATE AMINO TRANSFERASE 16 U/L (14-36); BILIRUBIN,TOTAL 0.4 mg/dL (0.2-1.3); BLOOD UREA NITROGEN 63 mg/dL (7-20); GLUCOSE 235 mg/dL (75-110); TOTAL PROTEIN 6.6 g/dL (6.3-8.2)
[2017-10-04 07:16] LABS: RED BLOOD COUNT 3.11 10^6/uL (3.72-5.28); WHITE BLOOD COUNT 10.9 10^3/uL (4.0-10.5)
[2017-10-04 07:17] LABS: HEMATOCRIT 29.1 % (36.0-47.0); HEMOGLOBIN 10.1 g/dL (12.0-15.5); MEAN CORPUSCULAR HEMOGLOBIN 32.4 pg (27.0-33.4); MEAN CORPUSCULAR HGB CONC 34.7 g/dL (32.0-36.0); MEAN CORPUSCULAR VOLUME 94 fl (80-97); PLATELET COUNT 167 10^3/uL (150-450); RED CELL DISTRIBUTION WIDTH 15.4 % (11.5-14.0)
[2017-10-04 07:19] LABS: ABSOLUTE LYMPHOCYTES# (MANUAL) 1.4 10^3/uL (0.5-4.7); ABSOLUTE MONOCYTES # (MANUAL) 0.9 10^3/uL (0.1-1.4); ABSOLUTE NEUTROPHILS# (MANUAL) 7.8 10^3/uL (1.7-8.2); ANISOCYTOSIS SLIGHT; BAND NEUTROPHILS % (MANUAL) 6 % (3-5); BASOPHILS % (MANUAL) 1 % (0-2); EOSINOPHILS % (MANUAL) 6 % (0-6); HYPOCHROMASIA 1+; LYMPHOCYTES % (MANUAL) 13 % (13-45); MONOCYTES % (MANUAL) 8 % (3-13); PLATELET COMMENT ADEQUATE; SEGMENTED NEUTROPHILS % (MAN) 66 % (42-78); TOTAL CELLS COUNTED 100
[2017-10-04 07:20] LABS: CARBON DIOXIDE 24 mmol/L (22-30); CHLORIDE 90 mmol/L (98-107); SODIUM 136.5 mmol/L (137-145)
[2017-10-04 07:37] LABS: BILIRUBIN,DIRECT 0.4 mg/dL (0.0-0.4)
[2017-10-04 07:38] LABS: ANION GAP 23 (5-19)
[2017-10-04] MEDS: INSULIN LISPRO 100 UNIT/ML 3 ML VIAL SUBCUT PRN ×4 (08:12→22:20)
[2017-10-04] MEDS: CLONIDINE HCL 0.1 MG TABLET PO SCH (08:15)
[2017-10-04] MEDS: PREGABALIN 50 MG CAPSULE PO SCH ×2 (08:19→22:19)
--- NOTE | 2017-10-04 09:48 | PDOC PROGRESS REPORT ---
Subjective Progress Note for:: 10/04/17 Subjective:: Patient is feeling much better still having some mild headache and still have a some cough with some productivity Patient's denied any bloody wheezing denied any chest pain denied any shortness of the breath Patient's fever is also coming down Reviewed the ID consult and will DC the acyclovir as per ID suggestions and may be considered the DC the vancomycin if the cultures come back all negative Reason For Visit: FEVER/HEADACHE Physical Exam Vital Signs: Temp Pulse Resp BP Pulse Ox 97.9 F 82 16 155/87 H 97 10/04/17 08:08 10/04/17 08:08 10/04/17 08:08 10/04/17 08:08 10/04/17 08:08 Intake & Output 10/03/17 10/04/17 10/05/17 06:59 06:59 06:59 Intake Total 4005 9320 Output Total 4300 9550 Balance -295 -230 Weight 92.4 kg 94.6 kg General appearance: PRESENT: no acute distress, well-developed, well-nourished Head exam: PRESENT: atraumatic, normocephalic Eye exam: PRESENT: conjunctiva pink, EOMI, PERRLA. ABSENT: scleral icterus Ear exam: PRESENT: normal external ear exam Mouth exam: PRESENT: moist, tongue midline Neck exam: PRESENT: full ROM. ABSENT: carotid bruit, JVD, lymphadenopathy, thyromegaly Respiratory exam: PRESENT: clear to auscultation ellie Cardiovascular exam: PRESENT: RRR. ABSENT: diastolic murmur, rubs, systolic murmur Pulses: PRESENT: normal dorsalis pedis pul, +2 pedal pulses bilateral Vascular exam: PRESENT: normal capillary refill GI/Abdominal exam: PRESENT: normal bowel sounds, soft. ABSENT: distended, guarding, mass, organolmegaly, rebound, tenderness Rectal exam: PRESENT: deferred Extremities exam: ABSENT: pedal edema Musculoskeletal exam: PRESENT: ambulatory Neurological exam: PRESENT: alert, awake, oriented to person, oriented to place , oriented to time, oriented to situation, CN II-XII grossly intact. ABSENT: motor sensory deficit Psychiatric exam: PRESENT: appropriate affect, normal mood. ABSENT: homicidal ideation, suicidal ideation Skin exam: PRESENT: dry, intact, warm. ABSENT: cyanosis, rash Results Laboratory Results: 10/04/17 05:37 10/04/17 05:37 10/03/17 10/04/17 10/04/17 13:00 05:37 05:37 WBC RBC Hgb Hct MCV MCH MCHC RDW Plt Count Seg Neutrophils % Lymphocytes % Monocytes % Eosinophils % Basophils % Absolute Neutrophils Absolute Lymphocytes Absolute Monocytes Absolute Eosinophils Absolute Basophils Sodium 136.5 L Potassium 4.0 Chloride 90 L Carbon Dioxide 24 Anion Gap 23 H BUN 63 H Creatinine 16.79 H Est GFR ( Amer) 3 L Est GFR (Non-Af Amer) 2 L Glucose 235 H Calcium 9.0 Total Bilirubin 0.4 AST 16 ALT 27 Alkaline Phosphatase 125 Total Protein 6.6 Albumin 3.1 L Fluid Type PERITONEAL Fluid Source ABDOMEN Fluid Color COLORLESS Fluid Appearance CLEAR Fluid Viscosity LIQUID Fluid WBC 4 Fluid RBC 0 10/04/17 05:37 WBC 10.9 H RBC 3.11 L Hgb 10.1 L Hct 29.1 L MCV 94 MCH 32.4 MCHC 34.7 RDW 15.4 H Plt Count 167 Seg Neutrophils % Not Reportable Lymphocytes % Not Reportable Monocytes % Not Reportable Eosinophils % Not Reportable Basophils % Not Reportable Absolute Neutrophils Not Reportable Absolute Lymphocytes Not Reportable Absolute Monocytes Not Reportable Absolute Eosinophils Not Reportable Absolute Basophils Not Reportable Sodium Potassium Chloride Carbon Dioxide Anion Gap BUN Creatinine Est GFR ( Amer) Est GFR (Non-Af Amer) Glucose Calcium Total Bilirubin AST ALT Alkaline Phosphatase Total Protein Albumin Fluid Type Fluid Source Fluid Color Fluid Appearance Fluid Viscosity Fluid WBC Fluid RBC Impressions: Head CT 10/02/17 13:15 IMPRESSION: NORMAL BRAIN CT WITHOUT CONTRAST. EVIDENCE OF ACUTE STROKE: NO. Chest X-Ray 10/02/17 18:17 IMPRESSION: Patchy pneumonic infiltrate in the left upper lung field. Abdomen/Pelvis CT 10/02/17 19:03 IMPRESSION: 1. Possible left lower lobe pneumonia. 2. There is free fluid in the abdomen. Likely ascites. Does patient received peritoneal dialysis? 3. There is a catheter that extends into the pelvis. Chest CT 10/03/17 00:00 IMPRESSION: Left upper lobe pneumonia. Assessment & Plan - Diagnosis (1) Viral meningitis, unspecified Is this a current diagnosis for this admission?: Yes Plan: Continues to current medications so far cultures from the second days all negatives review the ID consult with no sign of encephalitis and no sign of bacterial meningitis and no sign of any herpes meningitis (2) Fever Qualifiers: Fever type: unspecified Qualified Code(s): R50.9 - Fever, unspecified Is this a current diagnosis for this admission?: Yes Plan: Most likely coming from the pneumonia is currently resolving (3) Pneumonia Qualifiers: Lung location: unspecified part of lung Is this a current diagnosis for this admission?: No Plan: Continues to IV antibiotic (4) Diabetes mellitus Is this a current diagnosis for this admission?: Yes Plan: Continues to current medications (5) End stage renal disease on dialysis Is this a current diagnosis for this admission?: Yes Plan: Currently on the PD dialysis (6) Anemia Qualifiers: Anemia type: unspecified type Qualified Code(s): D64.9 - Anemia, unspecified Is this a current diagnosis for this admission?: Yes (7) HTN (hypertension) Is this a current diagnosis for this admission?: Yes Plan: Currently all stable - Time Time Spent with patient: 15-24 minutes Medications reviewed and adjusted accordingly: Yes Anticipated discharge: Home Within: Other - Inpatient Certification Medical Necessity: Need Close Monitoring Due to Risk of Patient Decompensation, Need for IV Antibiotics Post Hospital Care: D/C [employer] Documentation - Plan Summary Plan Summary: Discussed with the patient about the all the test reports and the plan continues to current medications
[2017-10-04] MEDS ORDERED: CALCITRIOL 0.25 MCG CAPSULE PO SCH (10:00)
[2017-10-04] MEDS ORDERED: (PENDING PHARMACY ID) (Calcitriol [Rocaltrol 0.5 Mcg Capsule] 0.5 MCG) PO SCH (10:00)
--- NOTE | 2017-10-04 11:28 | PDOC PROGRESS REPORT ---
Subjective Progress Note for:: 10/04/17 Subjective:: Patient was laying in her chair this morning. At the time her only complaint was that she was tired. Her constipation has resolved and she no longer has a headache. She denies chest pain, SOB, fevers or chills. Her cough remains but she has no sputum production. Peritoneal cell count did not have significant results. Reason For Visit: FEVER/HEADACHE Physical Exam Vital Signs: Temp Pulse Resp BP Pulse Ox 97.9 F 82 16 155/87 H 97 10/04/17 08:08 10/04/17 08:08 10/04/17 08:08 10/04/17 08:08 10/04/17 08:08 Intake & Output 10/03/17 10/04/17 10/05/17 06:59 06:59 06:59 Intake Total 4005 9320 Output Total 4300 9550 Balance -295 -230 Weight 92.4 kg 94.6 kg General appearance: PRESENT: no acute distress, well-developed, well-nourished Eye exam: PRESENT: PERRLA Neck exam: PRESENT: full ROM. ABSENT: JVD Respiratory exam: PRESENT: crackles, rhonchi - -left upper lobe. ABSENT: accessory muscle use, clear to auscultation ellie, rales, wheezes Cardiovascular exam: PRESENT: +S1, +S2 GI/Abdominal exam: PRESENT: normal bowel sounds, soft. ABSENT: guarding, organomegaly, tenderness Extremities exam: ABSENT: pedal edema, tenderness, +1 edema, +2 edema Musculoskeletal exam: PRESENT: normal inspection. ABSENT: tenderness Neurological exam: PRESENT: alert, awake, oriented to person, oriented to place , oriented to time, oriented to situation Skin exam: PRESENT: dry, intact, warm. ABSENT: cyanosis Results Laboratory Results: 10/04/17 05:37 10/04/17 05:37 10/03/17 10/04/17 10/04/17 13:00 05:37 05:37 WBC RBC Hgb Hct MCV MCH MCHC RDW Plt Count Seg Neutrophils % Lymphocytes % Monocytes % Eosinophils % Basophils % Absolute Neutrophils Absolute Lymphocytes Absolute Monocytes Absolute Eosinophils Absolute Basophils Sodium 136.5 L Potassium 4.0 Chloride 90 L Carbon Dioxide 24 Anion Gap 23 H BUN 63 H Creatinine 16.79 H Est GFR ( Amer) 3 L Est GFR (Non-Af Amer) 2 L Glucose 235 H Calcium 9.0 Total Bilirubin 0.4 AST 16 ALT 27 Alkaline Phosphatase 125 Total Protein 6.6 Albumin 3.1 L Fluid Type PERITONEAL Fluid Source ABDOMEN Fluid Color COLORLESS Fluid Appearance CLEAR Fluid Viscosity LIQUID Fluid WBC 4 Fluid RBC 0 10/04/17 05:37 WBC 10.9 H RBC 3.11 L Hgb 10.1 L Hct 29.1 L MCV 94 MCH 32.4 MCHC 34.7 RDW 15.4 H Plt Count 167 Seg Neutrophils % Not Reportable Lymphocytes % Not Reportable Monocytes % Not Reportable Eosinophils % Not Reportable Basophils % Not Reportable Absolute Neutrophils Not Reportable Absolute Lymphocytes Not Reportable Absolute Monocytes Not Reportable Absolute Eosinophils Not Reportable Absolute Basophils Not Reportable Sodium Potassium Chloride Carbon Dioxide Anion Gap BUN Creatinine Est GFR ( Amer) Est GFR (Non-Af Amer) Glucose Calcium Total Bilirubin AST ALT Alkaline Phosphatase Total Protein Albumin Fluid Type Fluid Source Fluid Color Fluid Appearance Fluid Viscosity Fluid WBC Fluid RBC Impressions: Head CT 10/02/17 13:15 IMPRESSION: NORMAL BRAIN CT WITHOUT CONTRAST. EVIDENCE OF ACUTE STROKE: NO. Chest X-Ray 10/02/17 18:17 IMPRESSION: Patchy pneumonic infiltrate in the left upper lung field. Abdomen/Pelvis CT 10/02/17 19:03 IMPRESSION: 1. Possible left lower lobe pneumonia. 2. There is free fluid in the abdomen. Likely ascites. Does patient received peritoneal dialysis? 3. There is a catheter that extends into the pelvis. Chest CT 10/03/17 00:00 IMPRESSION: Left upper lobe pneumonia. Assessment & Plan - Diagnosis (1) Viral meningitis, unspecified Is this a current diagnosis for this admission?: Yes Plan: recently was stopped on acyclovir, currently symptoms are improving. (2) End stage renal disease on dialysis Is this a current diagnosis for this admission?: Yes Plan: currently on PD. Does not look to have a peritoneal infection. Culture has no growth and cell count was not significant (3) Pneumonia Qualifiers: Lung location: unspecified part of lung Is this a current diagnosis for this admission?: No Plan: Continuing on IV antibiotics, signs and symptoms look to improving. Fever is down and white count is trending down (4) Headache Qualifiers: Headache type: unspecified Headache chronicity pattern: unspecified pattern Intractability: not intractable Qualified Code(s): R51 - Headache Plan: resolved (5) Constipation Plan: resolved after soap suds enema and receiving miralax (6) HTN (hypertension) Is this a current diagnosis for this admission?: Yes Plan: varying (7) Diabetes mellitus Is this a current diagnosis for this admission?: Yes - Notes Notes: case and care plan were discussed with Dr. Osorio.
--- NOTE | 2017-10-04 15:44 | Progress Note ---
Provider Note Provider Note: ID Consult Note- Please see note from Dr. Gould from yesterday. I reviewed the chart, including cultures and CT scan of the chest. The patient appears to have a pneumonia involving the MERCEDES. Cultures are negative. The CSF is mildly abnormal but is not suggestive of a bacterial meningitis. There is no evidence that the patient has herpes meningitis, and that condition is relatively benign anyway. Recommend continuing meropenem to treat presumptive pneumonia. Recommend 7 days of treatment. I agree with discontinuing acyclovir. Would also recommend discontinuing vancomycin. Please call me if there are questions. Harvey Lema MD Pager: [phone]
[2017-10-04] MEDS: MEROPENEM 1 GM in NORMAL SALINE 50 ML IV SCH (17:35)
[2017-10-04] MEDS ORDERED: VANCOMYCIN HCL 750 MG in DEXTROSE 5%-WATER 250 ML IV SCH (18:00)
[2017-10-04] MEDS: FAMOTIDINE 20 MG TABLET PO SCH (22:19)
[2017-10-04] MEDS: CLONIDINE HCL 0.2 MG TABLET PO SCH (22:20)
[2017-10-04] MEDS: ZOLPIDEM TARTRATE 5 MG TABLET PO SCH (22:20)
[2017-10-05] MEDS: HEPARIN SOD (PORCINE) 5,000 UNIT/ML 1 ML SYRINGE SUBCUT SCH ×3 (05:19→22:57)
[2017-10-05 06:07] LABS: ABSOLUTE BASOPHILS # (AUTO) 0.1 10^3/uL (0.0-0.2); ABSOLUTE EOSINOPHILS # (AUTO) 0.3 10^3/uL (0.0-0.6); ABSOLUTE LYMPHOCYTES (AUTO) 1.7 10^3/uL (0.5-4.7); ABSOLUTE MONOCYTES (AUTO) 0.9 10^3/uL (0.1-1.4); ABSOLUTE NEUT (AUTO) 7.9 10^3/uL (1.7-8.2); BASOPHILS % (AUTO) 0.5 % (0-2); EOSINOPHILS % (AUTO) 2.8 % (0-6); HEMATOCRIT 28.8 % (36.0-47.0); LYMPHOCYTES % (AUTO) 15.6 % (13-45); MEAN CORPUSCULAR HEMOGLOBIN 32.3 pg (27.0-33.4); MEAN CORPUSCULAR HGB CONC 34.7 g/dL (32.0-36.0); MEAN CORPUSCULAR VOLUME 93 fl (80-97); MONOCYTES % (AUTO) 8.4 % (3-13); PLATELET COUNT 174 10^3/uL (150-450); RED BLOOD COUNT 3.09 10^6/uL (3.72-5.28); RED CELL DISTRIBUTION WIDTH 15.5 % (11.5-14.0); SEGMENTED NEUTROPHILS % (AUTO) 72.7 % (42-78); TOTAL CELLS COUNTED % (AUTO) 100 %; WHITE BLOOD COUNT 10.9 10^3/uL (4.0-10.5)
[2017-10-05 06:30] LABS: ALANINE AMINOTRANSFERASE 26 U/L (9-52); ALBUMIN 3.1 g/dL (3.5-5.0); ALKALINE PHOSPHATASE 143 U/L (38-126); ASPARTATE AMINO TRANSFERASE 17 U/L (14-36); BILIRUBIN,TOTAL 0.3 mg/dL (0.2-1.3); BLOOD UREA NITROGEN 61 mg/dL (7-20); CALCIUM 9.2 mg/dL (8.4-10.2); CARBON DIOXIDE 25 mmol/L (22-30); CHLORIDE 89 mmol/L (98-107); GLUCOSE 254 mg/dL (75-110); POTASSIUM 3.9 mmol/L (3.6-5.0); TOTAL PROTEIN 6.4 g/dL (6.3-8.2)
[2017-10-05 06:35] LABS: SODIUM 135.8 mmol/L (137-145)
[2017-10-05 06:41] LABS: ANION GAP 22 (5-19)
[2017-10-05] MEDS ORDERED: CLONIDINE HCL 0.1 MG TABLET ONE (07:47)
[2017-10-05] MEDS: CLONIDINE HCL 0.1 MG TABLET PO SCH (07:49)
[2017-10-05] MEDS: INSULIN LISPRO 100 UNIT/ML 3 ML VIAL SUBCUT SCH ×3 (07:49→18:26)
[2017-10-05] MEDS: INSULIN LISPRO 100 UNIT/ML 3 ML VIAL SUBCUT PRN ×4 (07:56→23:05)
[2017-10-05] MEDS: FOLIC ACID/VITAMIN B COMP W-C CAPSULE PO SCH (14:50)
--- NOTE | 2017-10-05 16:02 | PDOC PROGRESS REPORT ---
Subjective Progress Note for:: 10/05/17 Subjective:: Patient is seen by the bedside, she had no new complaint today, admitted for pneumonia, end-stage renal disease on PD Reason For Visit: FEVER/HEADACHE Physical Exam Vital Signs: Temp Pulse Resp BP Pulse Ox 97.2 F 72 17 142/88 H 98 10/05/17 15:16 10/05/17 15:16 10/05/17 15:16 10/05/17 15:16 10/05/17 15:16 Intake & Output 10/04/17 10/05/17 10/06/17 06:59 06:59 06:59 Intake Total 9320 7795 4200 Output Total 9550 8100 5350 Balance -230 -305 -1150 Weight 94.6 kg 96.5 kg 91.8 kg General appearance: PRESENT: no acute distress Eye exam: PRESENT: PERRLA Respiratory exam: PRESENT: clear to auscultation ellie Cardiovascular exam: PRESENT: +S1, +S2 Neurological exam: PRESENT: alert Results Laboratory Results: 10/05/17 05:56 10/05/17 05:56 10/05/17 10/05/17 05:56 05:56 WBC 10.9 H RBC 3.09 L Hgb 10.0 L Hct 28.8 L MCV 93 MCH 32.3 MCHC 34.7 RDW 15.5 H Plt Count 174 Seg Neutrophils % 72.7 Lymphocytes % 15.6 Monocytes % 8.4 Eosinophils % 2.8 Basophils % 0.5 Absolute Neutrophils 7.9 Absolute Lymphocytes 1.7 Absolute Monocytes 0.9 Absolute Eosinophils 0.3 Absolute Basophils 0.1 Sodium 135.8 L Potassium 3.9 Chloride 89 L Carbon Dioxide 25 Anion Gap 22 H BUN 61 H Creatinine 15.71 H Est GFR ( Amer) 3 L Est GFR (Non-Af Amer) 3 L Glucose 254 H Calcium 9.2 Total Bilirubin 0.3 AST 17 ALT 26 Alkaline Phosphatase 143 H Total Protein 6.4 Albumin 3.1 L Impressions: Head CT 10/02/17 13:15 IMPRESSION: NORMAL BRAIN CT WITHOUT CONTRAST. EVIDENCE OF ACUTE STROKE: NO. Chest X-Ray 10/02/17 18:17 IMPRESSION: Patchy pneumonic infiltrate in the left upper lung field. Abdomen/Pelvis CT 10/02/17 19:03 IMPRESSION: 1. Possible left lower lobe pneumonia. 2. There is free fluid in the abdomen. Likely ascites. Does patient received peritoneal dialysis? 3. There is a catheter that extends into the pelvis. Chest CT 10/03/17 00:00 IMPRESSION: Left upper lobe pneumonia. Assessment & Plan - Diagnosis (1) End stage renal disease on dialysis Is this a current diagnosis for this admission?: Yes (2) Peritoneal dialysis catheter in place Is this a current diagnosis for this admission?: Yes (3) Diabetes mellitus Qualifiers: Diabetes mellitus type: type 2 Diabetes mellitus complication status: with kidney complications Is this a current diagnosis for this admission?: Yes (4) Pneumonia Qualifiers: Pneumonia type: due to unspecified organism Laterality: unspecified laterality Lung location: unspecified part of lung Qualified Code(s): J18.9 - Pneumonia, unspecified organism Is this a current diagnosis for this admission?: Yes - Plan Summary Plan Summary: Continue present treatment
[2017-10-05] MEDS: MEROPENEM 1 GM in NORMAL SALINE 50 ML IV SCH (18:26)
[2017-10-05] MEDS: CLONIDINE HCL 0.2 MG TABLET PO SCH (22:58)
[2017-10-05] MEDS: ZOLPIDEM TARTRATE 5 MG TABLET PO SCH (22:59)
[2017-10-05] MEDS: FAMOTIDINE 20 MG TABLET PO SCH (22:59)
[2017-10-05] MEDS: PREGABALIN 50 MG CAPSULE PO SCH (22:59)
[2017-10-05] MEDS: ROPINIROLE HCL 2 MG TABLET PO SCH (23:02)
[2017-10-05] MEDS: INSULIN GLARGINE,HUM.REC.ANLOG 300 UNIT/3 ML INSULN.PEN SUBCUT SCH (23:04)
[2017-10-06] MEDS: HEPARIN SOD (PORCINE) 5,000 UNIT/ML 1 ML SYRINGE SUBCUT SCH ×3 (05:54→23:24)
[2017-10-06] MEDS: FOLIC ACID/VITAMIN B COMP W-C CAPSULE PO SCH (08:56)
[2017-10-06] MEDS: CLONIDINE HCL 0.1 MG TABLET PO SCH (08:56)
[2017-10-06] MEDS: CALCITRIOL 0.25 MCG CAPSULE PO SCH (08:57)
[2017-10-06] MEDS: INSULIN LISPRO 100 UNIT/ML 3 ML VIAL SUBCUT SCH ×3 (08:57→18:14)
[2017-10-06] MEDS: INSULIN LISPRO 100 UNIT/ML 3 ML VIAL SUBCUT PRN ×4 (09:03→23:35)
--- NOTE | 2017-10-06 17:01 | PDOC PROGRESS REPORT ---
Subjective Progress Note for:: 10/06/17 Subjective:: There is no new complaints, patient seen by the bedside Reason For Visit: PNA Physical Exam Vital Signs: Temp Pulse Resp BP Pulse Ox 97.2 F 71 16 128/67 H 100 10/06/17 11:27 10/06/17 14:40 10/06/17 11:27 10/06/17 14:40 10/06/17 11:27 Intake & Output 10/05/17 10/06/17 10/07/17 06:59 06:59 06:59 Intake Total 7795 9340 4890 Output Total 8100 26435 4350 Balance -305 -1010 540 Weight 96.5 kg 95.4 kg 91.4 kg General appearance: PRESENT: no acute distress Eye exam: PRESENT: PERRLA Respiratory exam: PRESENT: clear to auscultation ellie Cardiovascular exam: PRESENT: +S1, +S2 Neurological exam: PRESENT: alert Results Laboratory Results: 10/05/17 05:56 10/05/17 05:56 Impressions: Head CT 10/02/17 13:15 IMPRESSION: NORMAL BRAIN CT WITHOUT CONTRAST. EVIDENCE OF ACUTE STROKE: NO. Chest X-Ray 10/02/17 18:17 IMPRESSION: Patchy pneumonic infiltrate in the left upper lung field. Abdomen/Pelvis CT 10/02/17 19:03 IMPRESSION: 1. Possible left lower lobe pneumonia. 2. There is free fluid in the abdomen. Likely ascites. Does patient received peritoneal dialysis? 3. There is a catheter that extends into the pelvis. Chest CT 10/03/17 00:00 IMPRESSION: Left upper lobe pneumonia. Assessment & Plan - Diagnosis (1) End stage renal disease on dialysis Is this a current diagnosis for this admission?: Yes (2) Peritoneal dialysis catheter in place Is this a current diagnosis for this admission?: Yes (3) Diabetes mellitus Qualifiers: Diabetes mellitus type: type 2 Diabetes mellitus complication status: with kidney complications Is this a current diagnosis for this admission?: Yes (4) Pneumonia Qualifiers: Pneumonia type: due to unspecified organism Laterality: unspecified laterality Lung location: unspecified part of lung Qualified Code(s): J18.9 - Pneumonia, unspecified organism Is this a current diagnosis for this admission?: Yes
[2017-10-06] MEDS: MEROPENEM 1 GM in NORMAL SALINE 50 ML IV SCH (18:14)
[2017-10-06] MEDS: CLONIDINE HCL 0.2 MG TABLET PO SCH (23:22)
[2017-10-06] MEDS: PREGABALIN 50 MG CAPSULE PO SCH (23:23)
[2017-10-06] MEDS: ZOLPIDEM TARTRATE 5 MG TABLET PO SCH (23:23)
[2017-10-06] MEDS: FAMOTIDINE 20 MG TABLET PO SCH (23:23)
[2017-10-06] MEDS: INSULIN GLARGINE,HUM.REC.ANLOG 300 UNIT/3 ML INSULN.PEN SUBCUT SCH (23:35)
[2017-10-06] MEDS: ROPINIROLE HCL 2 MG TABLET PO SCH (23:36)
[2017-10-07] MEDS: ACETAMINOPHEN 325 MG TABLET PO PRN (05:33)
[2017-10-07] MEDS: HEPARIN SOD (PORCINE) 5,000 UNIT/ML 1 ML SYRINGE SUBCUT SCH ×2 (05:34→14:21)
[2017-10-07] MEDS: INSULIN LISPRO 100 UNIT/ML 3 ML VIAL SUBCUT PRN ×2 (08:27→14:20)
[2017-10-07] MEDS: INSULIN LISPRO 100 UNIT/ML 3 ML VIAL SUBCUT SCH ×2 (08:29→14:19)
[2017-10-07 08:35] LABS: HEMATOCRIT 29.3 % (36.0-47.0); HEMOGLOBIN 9.9 g/dL (12.0-15.5); MEAN CORPUSCULAR HEMOGLOBIN 31.8 pg (27.0-33.4); MEAN CORPUSCULAR HGB CONC 33.7 g/dL (32.0-36.0); MEAN CORPUSCULAR VOLUME 94 fl (80-97); PLATELET COUNT 209 10^3/uL (150-450); RED BLOOD COUNT 3.11 10^6/uL (3.72-5.28); RED CELL DISTRIBUTION WIDTH 15.3 % (11.5-14.0)
[2017-10-07 08:41] LABS: ANION GAP 19 (5-19); BLOOD UREA NITROGEN 65 mg/dL (7-20); CALCIUM 9.4 mg/dL (8.4-10.2); CARBON DIOXIDE 26 mmol/L (22-30); CHLORIDE 88 mmol/L (98-107); GLUCOSE 253 mg/dL (75-110); SODIUM 132.9 mmol/L (137-145)
--- NOTE | 2017-10-07 08:54 | RADIOLOGY REPORT (SQ) ---
EXAM DESCRIPTION: CHEST 2 VIEWS COMPLETED DATE/TIME: 10/07/2017 8:19 am REASON FOR STUDY: pnemonia COMPARISON: 07/14/2016 EXAM PARAMETERS: NUMBER OF VIEWS: two views TECHNIQUE: Digital Frontal and Lateral radiographic views of the chest acquired. RADIATION DOSE: NA LIMITATIONS: none FINDINGS: LUNGS AND PLEURA: Low lung volume. Left upper lung and left lingula infiltrates. The ri ght lung is clear. No pneumothorax or pleural effusion. MEDIASTINUM AND HILAR STRUCTURES: No masses or contour abnormalities. HEART AND VASCULAR STRUCTURES: Heart normal size. No evidence for failure. BONES: No acute findings. HARDWARE: None in the chest. OTHER: No other significant finding. IMPRESSION: 1 Left upper lung and left lingula infiltrates. 2. Low lung volumes. TECHNICAL DOCUMENTATION: JOB ID: [id number] [employer]- All Rights Reserved Reading location - IP/workstation name: [email or web address]
[2017-10-07 09:06] LABS: ABSOLUTE LYMPHOCYTES# (MANUAL) 2.7 10^3/uL (0.5-4.7); ABSOLUTE MONOCYTES # (MANUAL) 0.5 10^3/uL (0.1-1.4); ABSOLUTE NEUTROPHILS# (MANUAL) 9.8 10^3/uL (1.7-8.2); ANISOCYTOSIS SLIGHT; BAND NEUTROPHILS % (MANUAL) 3 % (3-5); BASOPHILS % (MANUAL) 0 % (0-2); EOSINOPHILS % (MANUAL) 0 % (0-6); LYMPHOCYTES % (MANUAL) 21 % (13-45); METAMYELOCYTES % (MANUAL) 2 % (0); MONOCYTES % (MANUAL) 4 % (3-13); PLATELET COMMENT ADEQUATE; POLYCHROMASIA SLIGHT; SEGMENTED NEUTROPHILS % (MAN) 70 % (42-78); TOTAL CELLS COUNTED 100; TOXIC GRANULATION SLIGHT; TOXIC VACUOLATION PRESENT
[2017-10-07] MEDS: CLONIDINE HCL 0.1 MG TABLET PO SCH (09:36)
[2017-10-07] MEDS: CALCITRIOL 0.25 MCG CAPSULE PO SCH (09:36)
[2017-10-07] MEDS: FOLIC ACID/VITAMIN B COMP W-C CAPSULE PO SCH (09:36)
[2017-10-07] MEDS ORDERED: MEROPENEM 1 GM in NORMAL SALINE 50 ML IV ONE (10:00)
--- NOTE | 2017-10-07 12:22 | PDOC DISCHARGE SUMMARY ---
General - Admit/Disc Date/PCP Admission Date/Primary Care Provider: 10/02/17 18:33 MOJGAN PACE MD Discharge Date: 10/07/17 - Discharge Diagnosis (1) Viral meningitis, unspecified Is this a current diagnosis for this admission?: Yes Summary: Currently all resolved (2) Fever Is this a current diagnosis for this admission?: Yes Summary: Most likely due to the pneumonia currently all resolved (3) Pneumonia Is this a current diagnosis for this admission?: Yes Summary: Continues to meropenem switched to the Saturday while patient on multiple drug allergies and the review the infectious disease consult for total 10 days therapy (4) Diabetes mellitus Is this a current diagnosis for this admission?: Yes Summary: Currently all stable (5) End stage renal disease on dialysis Is this a current diagnosis for this admission?: Yes Summary: Currently on peritoneal dialysis (6) Anemia Is this a current diagnosis for this admission?: Yes Summary: Currently all stable (7) HTN (hypertension) Is this a current diagnosis for this admission?: Yes Summary: Currently all stable - Additional Information Discharge Diet: Diabetic Discharge Activity: Activity As Tolerated Prescriptions: Meropenem [Merrem 1 gm Vial] 1 gm IV QPM #5 vial Home Medications: Calcitriol [Rocaltrol 0.5 mcg Capsule] 0.5 mcg PO MOWEFR@1000 10/02/17 Clonidine HCl [Catapres 0.1 mg Tablet] 0.1 mg PO DAILY 10/02/17 Clonidine HCl [Catapres 0.1 mg Tablet] 0.2 mg PO QHS 10/02/17 Ferric Citrate [Auryxia] 210 mg PO ASDIR PRN 10/02/17 Ferric Citrate [Auryxia] 420 mg PO AC 10/02/17 Pregabalin [Lyrica 50 mg Capsule] 50 mg PO Q12 10/02/17 Ropinirole HCl [Requip] 5 mg PO DAILY 10/02/17 Vit B Comp No.3/Folic/C/Biotin [Tonya-Viviaan Rx Tablet] 1 tab PO DAILY 10/02/17 Zolpidem Tartrate [Ambien 5 mg Tablet] 5 mg PO QHS 10/02/17 Insulin Aspart [Novolog Flexpen] 1 - 12 units SUBCUT ACHS 10/04/17 Insulin Aspart [Novolog Flexpen] 6 units SUBCUT AC 10/04/17 Insulin Glargine,Hum.rec.anlog [Lantus Insulin 100 Unit/mL] 14 units SUBCUT QHS 10/04/17 Meropenem [Merrem 1 gm Vial] 1 gm IV QPM #5 vial 10/07/17 History of Present Illness History of Present Illness: NOELLE ARGUETA is a 37 year old female This is a 37-year-old female presents in my office with a complaining of a headache and fever and chills and patient's possible diagnosis with the meningitis with the respiratory disease and patient underwent for the lumbar puncture and CT of the head which all stable and most likely possible viral meningitis with a pneumonia and admitting in the hospital and further evaluations Hospital Course Hospital Course: This is a 36-year-old females with end-stage renal disease on the PD catheter present in the office with a complaint of a fever chills and headache for the last 3 days an initial evaluations done in the ER 2 days back and patient still not getting better in patients recent to the emergency departments for further evaluations to rule out any sepsis and meningitis while patient underwent for the lumbar puncture and patient's CSF fluid was clear no sign of any bacterial meningitis but possible viral meningitis Patient also chest x-ray consistent with the pneumonia and underwent a CT scan of the chest was consistent with a pneumonia to patient initially started with the meropenem and vancomycin's to cover the meningitis and the pneumonia and also continues with acyclovir Patient seen by the nephrology for the PD dialysis and also seen by the on telephone consult by the infectious disease and suggested no need for acyclovir and no sign of any bacterial meningitis and suggested continues to meropenem for 10 days Patients remain afebrile for the last 3 days patient headache is all resolved patients did not have any neurological signs or symptoms and patient's chest x- ray is also improving and a blood work is also stable and at this point patient' s desires to wants to go homes and at this point will continues to meropenem for total 10 days Discussed with the auto cleaner Dr. Osorio and continue same plan and at this point discussed with the patient and the family if increasing any fever any chills any headache following the emergency departments otherwise patients comes once a day in the hospital outpatients IV antibiotic therapy Physical Exam Vital Signs: Temp Pulse Resp BP Pulse Ox 97.8 F 85 16 145/86 H 100 10/07/17 08:25 10/07/17 08:25 10/07/17 08:25 10/07/17 08:25 10/07/17 08:25 Intake & Output 10/06/17 10/07/17 10/08/17 06:59 06:59 06:59 Intake Total 9340 9547 Output Total 83041 9161 Balance -1010 397 Weight 95.4 kg 94.1 kg General appearance: PRESENT: no acute distress, well-developed, well-nourished Head exam: PRESENT: atraumatic, normocephalic Eye exam: PRESENT: conjunctiva pink, EOMI, PERRLA. ABSENT: scleral icterus Ear exam: PRESENT: normal external ear exam Mouth exam: PRESENT: moist, tongue midline Neck exam: PRESENT: full ROM. ABSENT: carotid bruit, JVD, lymphadenopathy, thyromegaly Respiratory exam: PRESENT: clear to auscultation ellie Cardiovascular exam: PRESENT: RRR. ABSENT: diastolic murmur, rubs, systolic murmur Pulses: PRESENT: normal dorsalis pedis pul, +2 pedal pulses bilateral Vascular exam: PRESENT: normal capillary refill GI/Abdominal exam: PRESENT: normal bowel sounds, soft. ABSENT: distended, guarding, mass, organolmegaly, rebound, tenderness Rectal exam: PRESENT: deferred Extremities exam: ABSENT: pedal edema Musculoskeletal exam: PRESENT: ambulatory Neurological exam: PRESENT: alert, awake, oriented to person, oriented to place , oriented to time, oriented to situation, CN II-XII grossly intact. ABSENT: motor sensory deficit Psychiatric exam: PRESENT: appropriate affect, normal mood. ABSENT: homicidal ideation, suicidal ideation Skin exam: PRESENT: dry, intact, warm. ABSENT: cyanosis, rash Results Laboratory Results: 10/07/17 08:04 10/07/17 08:04 10/07/17 10/07/17 08:04 08:04 WBC 13.0 H RBC 3.11 L Hgb 9.9 L Hct 29.3 L MCV 94 MCH 31.8 MCHC 33.7 RDW 15.3 H Plt Count 209 Seg Neutrophils % Not Reportable Lymphocytes % Not Reportable Monocytes % Not Reportable Eosinophils % Not Reportable Basophils % Not Reportable Absolute Neutrophils Not Reportable Absolute Lymphocytes Not Reportable Absolute Monocytes Not Reportable Absolute Eosinophils Not Reportable Absolute Basophils Not Reportable Sodium 132.9 L Potassium 4.0 Chloride 88 L Carbon Dioxide 26 Anion Gap 19 BUN 65 H Creatinine 12.72 H Est GFR ( Amer) 4 L Est GFR (Non-Af Amer) 3 L Glucose 253 H Calcium 9.4 Impressions: Head CT 10/02/17 13:15 IMPRESSION: NORMAL BRAIN CT WITHOUT CONTRAST. EVIDENCE OF ACUTE STROKE: NO. Abdomen/Pelvis CT 10/02/17 19:03 IMPRESSION: 1. Possible left lower lobe pneumonia. 2. There is free fluid in the abdomen. Likely ascites. Does patient received peritoneal dialysis? 3. There is a catheter that extends into the pelvis. Chest CT 10/03/17 00:00 IMPRESSION: Left upper lobe pneumonia. Chest X-Ray 10/07/17 00:00 IMPRESSION: 1 Left upper lung and left lingula infiltrates. 2. Low lung volumes. Qualifiers - * PATIENT BEING DISCHARGED WITH ANY OF THE FOLLOWING DIAGNOSIS: No VTE patient discharged on overlapping Therapy?: Yes Plan Time Spent: Greater than 30 Minutes - Patient's discharge home with the stable conditions continues to follow with the PD dialysis Patients follow outpatient IV antibiotics until Saturday
--- NOTE | 2017-10-07 13:13 | PDOC CONSULTATION ---
Consultation Consult Date: 10/05/17 Attending physician:: MOJGAN PACE Consult reason:: pneumonia/crf History of Present Illness Admission Date/PCP: 10/02/17 18:33 MOJGAN PACE MD History of Present Illness: NOELLE ARGUETA is a 37 year old female,presented with complaints of nausea vomiting fevers and chills 3 days prior to admission which led her to go to the emergency room and subsequently underwent a lab and radiographic workup demonstrated a elevated white count she subsequently returned to her primary care doctor with a Casanova fever of 100.3 per the patient wants to patient later returned to the emergency room when she sent help have an elevated white count glycosuria she is on a chronic peritoneal dialysis this as well as cerebrospinal fluid was evaluated for possible sources of infection did respond to Tylenol for her fever but was still quite lethargic the patient she has never smoked denies history of being exposed to passive smoke as a child or adolescent her PPD status is negative dates unknown she has had no history of chronic lung disease as a child or adolescent. She denies angina-like chest pain normal sleeps on 2 pillows no PND no nocturnal cough and intermittent episodes of edema. She admits to snoring restless sleep unrestful sleep and daytime somnolence. Past Medical History Cardiac Medical History: Reports: Hypertension Denies: Coronary Artery Disease, Myocardial Infarction Pulmonary Medical History: Denies: Asthma, Bronchitis, Chronic Obstructive Pulmonary Disease (COPD), Pneumonia Neurological Medical History: Denies: Seizures Endocrine Medical History: Reports: Diabetes Mellitus Type 2 Renal/ Medical History: Reports: End Stage Renal Disease - peritoneal dialysis Musculoskeltal Medical History: Denies: Arthritis Psychiatric Medical History: Denies: Depression Hematology: Reports: Anemia Infectious Medical History: Reports: Methicillin-Resistant Staph Aureus Past Surgical History Past Surgical History: Reports: Orthopedic Surgery, Vascular Surgery - PermCath , peritoneal dialysis Social History Information Source: Patient, [facility] Records Smoking Status: Never Smoker Frequency of Alcohol Use: None Hx Recreational Drug Use: No Drugs: None Hx Prescription Drug Abuse: No Do you have pets?: No Have you had any respiratory illnesses as a child?: No Have you been exposed to any sick contacts recently?: No Have you had any recent respiratory illnesses?: No Have you travelled outside of [place] in the past 12 months?: No Family History Family History: Arthritis, DM, Hypertension Parental Family History Reviewed: Yes Children Family History Reviewed: Yes Sibling(s) Family History Reviewed.: Yes Medication/Allergy Home Medications: Calcitriol [Rocaltrol 0.5 mcg Capsule] 0.5 mcg PO MOWEFR@1000 10/02/17 Clonidine HCl [Catapres 0.1 mg Tablet] 0.1 mg PO DAILY 10/02/17 Clonidine HCl [Catapres 0.1 mg Tablet] 0.2 mg PO QHS 10/02/17 Ferric Citrate [Auryxia] 210 mg PO ASDIR PRN 10/02/17 Ferric Citrate [Auryxia] 420 mg PO AC 10/02/17 Pregabalin [Lyrica 50 mg Capsule] 50 mg PO Q12 10/02/17 Ropinirole HCl [Requip] 5 mg PO DAILY 10/02/17 Vit B Comp No.3/Folic/C/Biotin [Tonya-Viviana Rx Tablet] 1 tab PO DAILY 10/02/17 Zolpidem Tartrate [Ambien 5 mg Tablet] 5 mg PO QHS 10/02/17 Insulin Aspart [Novolog Flexpen] 1 - 12 units SUBCUT ACHS 10/04/17 Insulin Aspart [Novolog Flexpen] 6 units SUBCUT AC 10/04/17 Insulin Glargine,Hum.rec.anlog [Lantus Insulin 100 Unit/mL] 14 units SUBCUT QHS 10/04/17 Meropenem [Merrem 1 gm Vial] 1 gm IV QPM #5 vial 10/07/17 Allergies/Adverse Reactions: cephalexin monohydrate [From Keflex] Allergy (Severe, Verified 10/02/17 12:07) Hives clindamycin [Clindamycin] Allergy (Severe, Verified 10/02/17 12:07) Hives morphine [Morphine] Allergy (Severe, Verified 10/02/17 12:07) Hives Sulfa (Sulfonamide Antibiotics) Allergy (Severe, Verified 10/02/17 12:07) Hives tramadol [Tramadol] Allergy (Severe, Verified 10/02/17 12:07) Hives trimethoprim [From Bactrim] Allergy (Severe, Verified 10/02/17 12:07) Penicillins Allergy (Verified 10/02/17 12:07) sulfamethoxazole [From Bactrim] Allergy (Verified 10/02/17 12:07) Review of Systems ROS unobtainable: Due to mental status Physical Exam Vital Signs: Temp Pulse Resp BP Pulse Ox 97.8 F 71 18 135/78 H 98 10/05/17 11:49 10/05/17 11:49 10/05/17 11:49 10/05/17 11:49 10/05/17 11:49 Intake & Output 10/04/17 10/05/17 10/06/17 06:59 06:59 06:59 Intake Total 9320 7795 1999 Output Total 9561 8100 2400 Balance -230 -305 -400 Weight 94.6 kg 96.5 kg 91.8 kg General appearance: PRESENT: cooperative, disheveled, mild distress, obese, other - Very lethargic difficulty concentrating Head exam: PRESENT: atraumatic, normocephalic Eye exam: PRESENT: conjunctiva pale, EOMI, PERRLA. ABSENT: nystagmus, periorbital swelling, scleral icterus Mouth exam: PRESENT: dry mucosa, neck supple, tongue midline Neck exam: ABSENT: carotid bruit, JVD, lymphadenopathy, thyromegaly, tracheal deviation, tracheostomy Respiratory exam: PRESENT: decreased breath sounds, prolonged expiratory phas, rales, rhonchi, unlabored. ABSENT: retraction, stridor Cardiovascular exam: PRESENT: RRR, +S1, +S2 Pulses: PRESENT: normal radial pulses GI/Abdominal exam: PRESENT: diminished bowel sounds, soft Extremities exam: PRESENT: full ROM. ABSENT: calf tenderness, clubbing, joint swelling Musculoskeletal exam: PRESENT: full ROM. ABSENT: deformity, dislocation Neurological exam: PRESENT: awake, oriented to person, oriented to place. ABSENT: oriented to time, oriented to situation Psychiatric exam: PRESENT: flat affect Skin exam: PRESENT: dry, warm Results Laboratory Results: 10/05/17 05:56 10/05/17 05:56 10/05/17 10/05/17 05:56 05:56 WBC 10.9 H RBC 3.09 L Hgb 10.0 L Hct 28.8 L MCV 93 MCH 32.3 MCHC 34.7 RDW 15.5 H Plt Count 174 Seg Neutrophils % 72.7 Lymphocytes % 15.6 Monocytes % 8.4 Eosinophils % 2.8 Basophils % 0.5 Absolute Neutrophils 7.9 Absolute Lymphocytes 1.7 Absolute Monocytes 0.9 Absolute Eosinophils 0.3 Absolute Basophils 0.1 Sodium 135.8 L Potassium 3.9 Chloride 89 L Carbon Dioxide 25 Anion Gap 22 H BUN 61 H Creatinine 15.71 H Est GFR ( Amer) 3 L Est GFR (Non-Af Amer) 3 L Glucose 254 H Calcium 9.2 Total Bilirubin 0.3 AST 17 ALT 26 Alkaline Phosphatase 143 H Total Protein 6.4 Albumin 3.1 L Impressions: Head CT 10/02/17 13:15 IMPRESSION: NORMAL BRAIN CT WITHOUT CONTRAST. EVIDENCE OF ACUTE STROKE: NO. Chest X-Ray 10/02/17 18:17 IMPRESSION: Patchy pneumonic infiltrate in the left upper lung field. Abdomen/Pelvis CT 10/02/17 19:03 IMPRESSION: 1. Possible left lower lobe pneumonia. 2. There is free fluid in the abdomen. Likely ascites. Does patient received peritoneal dialysis? 3. There is a catheter that extends into the pelvis. Chest CT 10/03/17 00:00 IMPRESSION: Left upper lobe pneumonia. Assessment & Plan - Diagnosis (1) End stage renal disease on dialysis Is this a current diagnosis for this admission?: Yes Plan: Patient continues to administer peritoneal dialysis under the direction of nephrology (2) Fever Qualifiers: Fever type: unspecified Qualified Code(s): R50.9 - Fever, unspecified Is this a current diagnosis for this admission?: Yes Plan: Stable at this time (3) Pneumonia Qualifiers: Pneumonia type: due to unspecified organism Laterality: unspecified laterality Lung location: unspecified part of lung Qualified Code(s): J18.9 - Pneumonia, unspecified organism Is this a current diagnosis for this admission?: Yes Plan: Antibiotic therapy as you have initiated continue chest physiotherapy and nebulized acetylcysteine
--- NOTE | 2017-10-07 14:31 | PDOC PROGRESS REPORT ---
Subjective Progress Note for:: 10/07/17 Subjective:: Much better today Reason For Visit: PNA Physical Exam Vital Signs: Temp Pulse Resp BP Pulse Ox 98.2 F 80 13 145/86 H 100 10/07/17 11:46 10/07/17 11:46 10/07/17 11:46 10/07/17 12:16 10/07/17 11:46 Intake & Output 10/06/17 10/07/17 10/08/17 06:59 06:59 06:59 Intake Total 9340 9547 2000 Output Total 07666 9150 3000 Balance -1010 397 -1000 Weight 95.4 kg 94.1 kg 90.1 kg General appearance: PRESENT: no acute distress, cooperative, disheveled, obese Head exam: PRESENT: atraumatic, normocephalic Eye exam: PRESENT: conjunctiva pale, EOMI. ABSENT: nystagmus, periorbital swelling, scleral icterus Mouth exam: PRESENT: dry mucosa, neck supple, tongue midline Neck exam: ABSENT: carotid bruit, JVD, lymphadenopathy, thyromegaly, tracheal deviation, tracheostomy Respiratory exam: PRESENT: decreased breath sounds, prolonged expiratory phas, rales, rhonchi, unlabored. ABSENT: retraction, stridor, tachypnea Cardiovascular exam: PRESENT: RRR, +S1, +S2 Pulses: PRESENT: normal radial pulses GI/Abdominal exam: PRESENT: normal bowel sounds, soft, other - PD cath Extremities exam: PRESENT: full ROM. ABSENT: calf tenderness, clubbing, joint swelling Musculoskeletal exam: PRESENT: ambulatory, full ROM. ABSENT: deformity, dislocation Neurological exam: PRESENT: alert, awake Psychiatric exam: PRESENT: normal mood Skin exam: PRESENT: dry, warm Results Laboratory Results: 10/07/17 08:04 10/07/17 08:04 10/07/17 10/07/17 08:04 08:04 WBC 13.0 H RBC 3.11 L Hgb 9.9 L Hct 29.3 L MCV 94 MCH 31.8 MCHC 33.7 RDW 15.3 H Plt Count 209 Seg Neutrophils % Not Reportable Lymphocytes % Not Reportable Monocytes % Not Reportable Eosinophils % Not Reportable Basophils % Not Reportable Absolute Neutrophils Not Reportable Absolute Lymphocytes Not Reportable Absolute Monocytes Not Reportable Absolute Eosinophils Not Reportable Absolute Basophils Not Reportable Sodium 132.9 L Potassium 4.0 Chloride 88 L Carbon Dioxide 26 Anion Gap 19 BUN 65 H Creatinine 12.72 H Est GFR ( Amer) 4 L Est GFR (Non-Af Amer) 3 L Glucose 253 H Calcium 9.4 Impressions: Head CT 10/02/17 13:15 IMPRESSION: NORMAL BRAIN CT WITHOUT CONTRAST. EVIDENCE OF ACUTE STROKE: NO. Abdomen/Pelvis CT 10/02/17 19:03 IMPRESSION: 1. Possible left lower lobe pneumonia. 2. There is free fluid in the abdomen. Likely ascites. Does patient received peritoneal dialysis? 3. There is a catheter that extends into the pelvis. Chest CT 10/03/17 00:00 IMPRESSION: Left upper lobe pneumonia. Chest X-Ray 10/07/17 00:00 IMPRESSION: 1 Left upper lung and left lingula infiltrates. 2. Low lung volumes. Assessment & Plan - Diagnosis (1) End stage renal disease on dialysis Is this a current diagnosis for this admission?: Yes Plan: Continue peritoneal dialysis under the guidance of nephrology (2) Fever Qualifiers: Fever type: unspecified Qualified Code(s): R50.9 - Fever, unspecified Is this a current diagnosis for this admission?: No (3) Pneumonia Qualifiers: Pneumonia type: due to unspecified organism Laterality: unspecified laterality Lung location: unspecified part of lung Qualified Code(s): J18.9 - Pneumonia, unspecified organism Is this a current diagnosis for this admission?: Yes Plan: Clinically improved radiographs unchanged patient in no distress agree with plans to continue antibiotics as outpatient
[2017-10-07 14:46] VITALS: BP 153/81
== END 2017-10-07 15:25 | disposition home health service (06) | DRG 75 ==
LOC: ER 11:53 → EH 18:33 → 3S 21:40
PROVIDERS: ADMIT Family Medicine; ATTEND Family Medicine
PROC: 009U3ZX Drainage of Spinal Canal, Percutaneous Approach, Diagnostic (ICD-10-PCS; principal; 2017-10-02)
PROC: 3E1M39Z Irrigation of Peritoneal Cavity using Dialysate, Percutaneous Approach (ICD-10-PCS; 2017-10-02)
DX: A87.9 Viral meningitis, unspecified (principal); J18.9 Pneumonia, unspecified organism; N18.6 End stage renal disease; I12.0 Hypertensive chronic kidney disease with stage 5 chronic kidney disease or end stage renal disease; D63.1 Anemia in chronic kidney disease; E11.22 Type 2 diabetes mellitus with diabetic chronic kidney disease; E11.65 Type 2 diabetes mellitus with hyperglycemia; K59.00 Constipation, unspecified; Z99.2 Dependence on renal dialysis; Z88.1 Allergy status to other antibiotic agents; Z88.0 Allergy status to penicillin; Z88.2 Allergy status to sulfonamides; Z88.6 Allergy status to analgesic agent; Z88.8 Allergy status to other drugs, medicaments and biological substances; Z92.25 Personal history of immunosuppression therapy; Z86.14 Personal history of Methicillin resistant Staphylococcus aureus infection; Z82.61 Family history of arthritis; Z83.3 Family history of diabetes mellitus; Z82.49 Family history of ischemic heart disease and other diseases of the circulatory system; Z79.4 Long term (current) use of insulin
CPT/HCPCS: 36415; 70450; 71045; 71046; 71250; 74176; 80048; 80053; 80076; 82945; 82962; 84157; 85025; 87040; 87070; 87075; 87205; 87252; 87804; 89050; 90945; 90947; 96374; 96375; 99284; 99285; J0133; J0780; J1630; J1815; J2185; J2250; J2405; J3370; J3490

== ENCOUNTER 2017-10-24 22:41 | Emergency (ER) | payer MEDICARE, MEDICAID ==
--- NOTE | 2017-10-25 00:15 | ER Document Report ---
ED Medical Screen (RME) - General Chief Complaint: Back Pain Stated Complaint: SPINE PAIN Time Seen by Provider: 10/25/17 00:13 Mode of Arrival: Ambulatory Information source: Patient Notes: 37-year-old female presented ED for complaint of severe low back pain. She states she had a lumbar puncture here 3 weeks ago because she was very sick. She states she was admitted after the lumbar puncture. She states about a week after the lumbar puncture she started having severe pain. States she went to Dr. Osorio'nick and had a MRI on Saturday and she has an appointment with Dr. Osorio tomorrow to read the MRI. She states she has been taken Tylenol and Aleve and cannot take Motrin because she is on peritoneal dialysis for kidney failure from her high blood pressure. I have informed the patient that she cannot take Aleve either as it is an NSAID and she should not be taking it when she has kidney failure. Patient is walking upright but his having pain with any movement getting up and down. I have greeted and performed a rapid initial assessment of this patient. A comprehensive ED assessment and evaluation of the patient, analysis of test results and completion of medical decision making process will be conducted by an additional ED providers. TRAVEL OUTSIDE OF THE [place] IN LAST 30 DAYS: No - Related Data Allergies/Adverse Reactions: cephalexin monohydrate [From Keflex] Allergy (Severe, Verified 10/02/17 12:07) Hives clindamycin [Clindamycin] Allergy (Severe, Verified 10/02/17 12:07) Hives morphine [Morphine] Allergy (Severe, Verified 10/02/17 12:07) Hives Sulfa (Sulfonamide Antibiotics) Allergy (Severe, Verified 10/02/17 12:07) Hives tramadol [Tramadol] Allergy (Severe, Verified 10/02/17 12:07) Hives trimethoprim [From Bactrim] Allergy (Severe, Verified 10/02/17 12:07) Penicillins Allergy (Verified 10/02/17 12:07) sulfamethoxazole [From Bactrim] Allergy (Verified 10/02/17 12:07) Past Medical History - Past Medical History Cardiac Medical History: Reports: Hx Hypertension Denies: Hx Coronary Artery Disease, Hx Heart Attack Pulmonary Medical History: Denies: Hx Asthma, Hx Bronchitis, Hx COPD, Hx Pneumonia Neurological Medical History: Denies: Hx Cerebrovascular Accident, Hx Seizures Endocrine Medical History: Reports: Hx Diabetes Mellitus Type 2 Renal/ Medical History: Reports: Hx End Stage Renal Disease - peritoneal dialysis, Hx Peritoneal Dialysis Musculoskeltal Medical History: Denies Hx Arthritis, Reports Hx Musculoskeletal Trauma - knee injury october 13, 2013 Skin Medical History: Reports Hx MRSA Psychiatric Medical History: Denies: Hx Depression Infectious Medical History: Reports: Hx MRSA Past Surgical History: Reports: Hx Orthopedic Surgery, Hx Vascular Surgery - PermCath, peritoneal dialysis - Immunizations Immunizations up to date: No Hx Diphtheria, Pertussis, Tetanus Vaccination: No History of Influenza Vaccine for 02/2017 - 07/2017 Season: Yes Physical Exam - Vital signs Vitals: Temp Pulse Resp BP Pulse Ox 97.7 F 96 14 124/66 98 10/24/17 23:23 10/24/17 23:23 10/24/17 23:23 10/24/17 23:23 10/24/17 23:23 Course - Vital Signs Vital signs: Temp Pulse Resp BP Pulse Ox 97.7 F 96 14 124/66 98 10/24/17 23:23 10/24/17 23:23 10/24/17 23:23 10/24/17 23:23 10/24/17 23:23 Doctor's Discharge - Discharge Referrals: MOJGAN PACE MD [Primary Care Provider] - Follow up as needed
[2017-10-25] MEDS ORDERED: HYDROMORPHONE HCL INJ/PF 2 MG/ML AMPULE IM ONE (03:12)
--- NOTE | 2017-10-25 04:51 | RADIOLOGY REPORT (SQ) ---
EXAM DESCRIPTION: CT of the lumbar spine with contrast. CLINICAL HISTORY: pain at lumbar puncture site. lp 3 wks ago COMPARISON: None available TECHNIQUE: Axial CT of the lumbar spine obtained following the uncomplicated intravenous administration of iodinated contrast.. FINDINGS: Alignment of the lumbar spine is maintained without evidence of subluxation. No fracture identified. Vertebral body height preserved. Prevertebral soft tissues are unremarkable. Intervertebral disc height preserved. No enhancing epidural fluid collections. No paraspinous fluid collections. Atherosclerotic vascular calcification. Small amount of free pelvic fluid is likely related to peritoneal dialysis. IUD identified. No other abnormalities in the soft tissues. DLP: 716.92 mGy-cm IMPRESSION: 1. No acute fracture or subluxation of the lumbar spine. 2. No enhancing abnormalities of the lumbar spine identified. This exam was performed according to our departmental dose-optimization program, which includes automated exposure control, adjustment of the mA and/or kV according to patient size and/or use of iterative reconstruction technique.
--- NOTE | 2017-10-25 05:07 | ER Document Report ---
ED General - General Chief Complaint: Back Pain Stated Complaint: SPINE PAIN Time Seen by Provider: 10/25/17 00:13 Mode of Arrival: Ambulatory Information source: Patient, [facility] Records Notes: 37-year-old female with hypertension, diabetes, end-stage renal disease on peritoneal dialysis presents with complaint of ED for complaint of low back pain. She states she had a lumbar puncture here 3 weeks ago. She states she was admitted after the lumbar puncture. She states about a week after the lumbar puncture she started having severe pain. States she went to Dr. Lilia romero and had a MRI on Saturday and she has an appointment with Dr. Osorio tomorrow to read the MRI. She states she has been taken Tylenol and Aleve that relief. Patient denies any fever, chills, saddle anesthesia, fecal incontinence , leg weakness, history of IV drug use. She does complain of burning right sided leg pain. TRAVEL OUTSIDE OF THE [place] IN LAST 30 DAYS: No - HPI Onset: Other Onset/Duration: Constant, Persistent, Worse Quality of pain: Stabbing, Throbbing Severity: Moderate Associated symptoms: denies: Fever, Hurts to breath, Leg swelling, Nausea, Vomiting, Shortness of breath Exacerbated by: Movement, Walking Relieved by: Remaining still Similar symptoms previously: Yes Recently seen / treated by doctor: Yes - Related Data Allergies/Adverse Reactions: cephalexin monohydrate [From Keflex] Allergy (Severe, Verified 10/02/17 12:07) Hives clindamycin [Clindamycin] Allergy (Severe, Verified 10/02/17 12:07) Hives morphine [Morphine] Allergy (Severe, Verified 10/02/17 12:07) Hives Sulfa (Sulfonamide Antibiotics) Allergy (Severe, Verified 10/02/17 12:07) Hives tramadol [Tramadol] Allergy (Severe, Verified 10/02/17 12:07) Hives trimethoprim [From Bactrim] Allergy (Severe, Verified 10/02/17 12:07) Penicillins Allergy (Verified 10/02/17 12:07) sulfamethoxazole [From Bactrim] Allergy (Verified 10/02/17 12:07) Past Medical History - General Information source: Patient - Social History Smoking Status: Never Smoker Frequency of alcohol use: None Drug Abuse: None Lives with: Spouse/Significant other Family History: Arthritis, DM, Hypertension Patient has suicidal ideation: No Patient has homicidal ideation: No - Past Medical History Cardiac Medical History: Reports: Hx Hypertension Denies: Hx Coronary Artery Disease, Hx Heart Attack Pulmonary Medical History: Denies: Hx Asthma, Hx Bronchitis, Hx COPD, Hx Pneumonia Neurological Medical History: Denies: Hx Cerebrovascular Accident, Hx Seizures Endocrine Medical History: Reports: Hx Diabetes Mellitus Type 2 Renal/ Medical History: Reports: Hx End Stage Renal Disease - peritoneal dialysis, Hx Peritoneal Dialysis - dwelling since 1900 Musculoskeltal Medical History: Denies Hx Arthritis, Reports Hx Musculoskeletal Trauma - knee injury october 13, 2013 Skin Medical History: Reports Hx MRSA Psychiatric Medical History: Denies: Hx Depression Infectious Medical History: Reports: Hx MRSA Past Surgical History: Reports: Hx Orthopedic Surgery, Hx Vascular Surgery - PermCath, peritoneal dialysis - Immunizations Immunizations up to date: No Hx Diphtheria, Pertussis, Tetanus Vaccination: No Hx Pneumococcal Vaccination: 05/27/14 Review of Systems - Review of Systems Notes: REVIEW OF SYSTEMS: CONSTITUTIONAL : Denies fever, chills, or sweats. Denies recent illness. Denies weight loss, recent hospitalizations. EENT: Denies visula changes, eye pain. Denies nasal or sinus congestion or discharge. Denies sore throat, oral lesions, difficulty swallowing. CARDIOVASCULAR: Denies chest pain. Denies palpitations or racing or irregular heart beat. Denies lower extremity edema. RESPIRATORY: Denies cough, cold, or chest congestion. Denies shortness of breath, difficulty breathing, or wheezing. GASTROINTESTINAL: Denies abdominal pain or distention. Denies nausea, vomiting , or diarrhea. Denies blood in vomitus, stools, or per rectum. Denies black, tarry stools. Denies constipation. GENITOURINARY: Denies difficulty urinating, painful urination, burning, frequency, blood in urine, or vaginal discharge. MUSCULOSKELETAL: Denies neck pain or stiffness. Denies joint pain or swelling. SKIN: Denies rash, lesions or sores. HEMATOLOGIC : Denies easy bruising or bleeding. LYMPHATIC: Denies swollen, enlarged glands. NEUROLOGICAL: Denies confusion or altered mental status. Denies passing out or loss of consciousness. Denies dizziness or lightheadedness. Denies headache. Denies weakness or paralysis or loss of use of either side. Denies problems with gait or speech. Denies sensory loss, numbness, or tingling. Denies seizures. PSYCHIATRIC: Denies anxiety or stress. Denies depression, suicidal ideation, or homicidal ideation. Physical Exam - Vital signs Vitals: Temp Pulse Resp BP Pulse Ox 97.7 F 96 14 124/66 98 10/24/17 23:23 10/24/17 23:23 10/24/17 23:23 10/24/17 23:23 10/24/17 23:23 Interpretation: Normal. No: Hypotensive, Febrile - Notes Notes: PHYSICAL EXAMINATION: GENERAL: Well-appearing, well-nourished and in no acute distress. HEAD: Atraumatic, normocephalic. EYES: Pupils equal round and reactive to light, extraocular movements intact, conjunctiva are normal. ENT: Nares patent, oropharynx clear without exudates. Moist mucous membranes. NECK: Normal range of motion, supple without lymphadenopathy LUNGS: Breath sounds clear to auscultation bilaterally and equal. No wheezes rales or rhonchi. HEART: Regular rate and rhythm without murmurs ABDOMEN: Soft, nontender, nondistended abdomen. No guarding, no rebound. No masses appreciated. Female : deferred Musculoskeletal: Line tenderness of the lumbar spine. No associated erythema at lumbar puncture site. Straight leg raise negative bilaterally. 4/5-dorsi and plantar flexion NEUROLOGICAL: Cranial nerves grossly intact. Normal speech, normal gait. Normal sensory, motor exams PSYCH: Normal mood, normal affect. SKIN: Warm, Dry, normal turgor, no rashes or lesions noted. Course - Re-evaluation Re-evalutation: 10/25/17 05:[address] 10/25/17 03:11 IMPRESSION: 1. No acute fracture or subluxation of the lumbar spine. 2. No enhancing abnormalities of the lumbar spine identified. This exam was performed according to our departmental dose-optimization program, which includes automated exposure control, adjustment of the mA and/or kV according to patient size and/or use of iterative reconstruction technique. 10/25/17 05:06 37-year-old female with hypertension, diabetes, end-stage renal disease on peritoneal dialysis presents with complaint of ED for complaint of low back pain. She states she had a lumbar puncture here 3 weeks ago. She states she was admitted after the lumbar puncture. She states about a week after the lumbar puncture she started having severe pain. States she went to Dr. Osorio' s and had a MRI on Saturday and she has an appointment with Dr. Osorio tomorrow to read the MRI. She states she has been taken Tylenol and Aleve that relief. Patient denies any fever, chills, saddle anesthesia, fecal incontinence , leg weakness, history of IV drug use. She does complain of burning right sided leg pain. Patient was seen by myself upon arrival. Vital signs were reviewed. Patient is afebrile, normotensive and not hypoxic. Patient does not appear toxic or dehydrated. They are in no acute distress. Previous medical records and nursing notes reviewed. CT of the lumbar spine showed no fracture or subluxation and no enhancing abnormalities. Patient was given Dilaudid IM. On reevaluation patient states she is feeling better. She is able to ambulate independently. Patient provided the opportunity to ask questions, and express concerns. Discharge instructions discussed. Patient is agreeable with discharge home. Return indications explained and discussed with the patient who displays understanding. Patient encouraged to return to the emergency department immediately with any concerns. - Vital Signs Vital signs: Temp Pulse Resp BP Pulse Ox 97.7 F 96 14 124/66 98 10/24/17 23:23 10/24/17 23:23 10/24/17 23:23 10/24/17 23:23 10/24/17 23:23 - Diagnostic Test Radiology reviewed: Image reviewed, Reports reviewed Discharge - Discharge Clinical Impression: Back pain Qualifiers: Back pain location: low back pain Chronicity: chronic Back pain laterality: right Sciatica presence: with sciatica Sciatica laterality: sciatica of right side Qualified Code(s): M54.41 - Lumbago with sciatica, right side Condition: Good Disposition: HOME, SELF-CARE Instructions: Ice Packs ([facility]), Low Back Pain ([facility]) Additional Instructions: Please keep your appointment today with Dr. Osorio at 9 AM to review your MRI of the back. Prescriptions: Hydrocodone/Acetaminophen [Ketchum 5-325 mg Tablet] 1 tab PO Q6H #12 tablet Referrals: MOJGAN PACE MD [Primary Care Provider] - Follow up as needed
[2017-10-25] MEDS ORDERED: HYDROCODONE/ACETAMINOPHEN 5-325 MG TABLET PO ONE (05:46)
[2017-10-25 06:02] VITALS: BP 127/78
== END 2017-10-25 06:02 | disposition home or self-care (01) ==
LOC: ER 22:41
DX: M54.41 Lumbago with sciatica, right side (principal); I12.0 Hypertensive chronic kidney disease with stage 5 chronic kidney disease or end stage renal disease; E11.22 Type 2 diabetes mellitus with diabetic chronic kidney disease; N18.6 End stage renal disease; Z99.2 Dependence on renal dialysis; Z98.890 Other specified postprocedural states; Z88.1 Allergy status to other antibiotic agents; Z88.5 Allergy status to narcotic agent; Z88.2 Allergy status to sulfonamides; Z88.0 Allergy status to penicillin
CPT/HCPCS: 99284; 96372; 72132; J1170; A9270

== ENCOUNTER → 2017-11-04 | Outpatient (CLI) | payer MEDICARE, MEDICAID ==
[2017-11-04 14:24] LABS: VANCOMYCIN,TROUGH 28.8 ug/mL (5.0-20.0)
[2017-11-04 14:41] LABS: GENTAMICIN-TROUGH 10.6 ug/mL (<2.0)
== END ==
LOC: OD 13:08
PROVIDERS: ATTEND Internal Medicine Nephrology
DX: K65.9 Peritonitis, unspecified (principal); Z79.2 Long term (current) use of antibiotics
CPT/HCPCS: 36415; 80170; 80202

== ENCOUNTER → 2017-11-11 | Outpatient (CLI) | payer MEDICARE, MEDICAID ==
[2017-11-11 13:50] LABS: HEMATOCRIT 25.7 % (36.0-47.0); HEMOGLOBIN 9.1 g/dL (12.0-15.5); MEAN CORPUSCULAR HEMOGLOBIN 33.2 pg (27.0-33.4); MEAN CORPUSCULAR HGB CONC 35.6 g/dL (32.0-36.0); MEAN CORPUSCULAR VOLUME 93 fl (80-97); PLATELET COUNT 366 10^3/uL (150-450); RED BLOOD COUNT 2.75 10^6/uL (3.72-5.28); WHITE BLOOD COUNT 9.6 10^3/uL (4.0-10.5)
[2017-11-11 14:24] LABS: VANCOMYCIN,TROUGH 20.3 ug/mL (5.0-20.0)
[2017-11-11 14:25] LABS: GENTAMICIN-TROUGH 6.6 ug/mL (<2.0)
== END ==
LOC: OD 08:30
PROVIDERS: ATTEND Internal Medicine Nephrology
DX: K65.9 Peritonitis, unspecified (principal); N18.6 End stage renal disease; D63.1 Anemia in chronic kidney disease
CPT/HCPCS: 36415; 80170; 80202; 85027

== ENCOUNTER 2017-11-14 16:53 | Emergency (ER) | payer MEDICARE, MEDICAID ==
--- NOTE | 2017-11-14 17:30 | ER Document Report ---
ED Medical Screen (RME) - General Chief Complaint: Shortness Of Breath Stated Complaint: DIFFICULTY BREATHING, HEARTBEAT ISSUE Time Seen by Provider: 11/14/17 17:28 Notes: The patient is a 37-year-old female, past medical history of peritoneal dialysis daily, presents with shortness of breath and feeling her heart racing earlier today. Denies hemoptysis, chest pain or syncope. PE: NAD. Lungs CTAB. RRR. I have greeted and performed a rapid initial assessment of this patient. A comprehensive ED assessment and evaluation of the patient, analysis of test results and completion of the medical decision making process will be conducted by additional ED providers. TRAVEL OUTSIDE OF THE [place] IN LAST 30 DAYS: No - Related Data Allergies/Adverse Reactions: cephalexin monohydrate [From Keflex] Allergy (Severe, Verified 11/14/17 17:00) Hives clindamycin [Clindamycin] Allergy (Severe, Verified 11/14/17 17:00) Hives morphine [Morphine] Allergy (Severe, Verified 11/14/17 17:00) Hives Sulfa (Sulfonamide Antibiotics) Allergy (Severe, Verified 11/14/17 17:00) Hives tramadol [Tramadol] Allergy (Severe, Verified 11/14/17 17:00) Hives trimethoprim [From Bactrim] Allergy (Severe, Verified 11/14/17 17:00) Penicillins Allergy (Verified 11/14/17 17:00) sulfamethoxazole [From Bactrim] Allergy (Verified 11/14/17 17:00) Past Medical History - Social History Chew tobacco use (# tins/day): No Frequency of alcohol use: None Drug Abuse: None - Past Medical History Cardiac Medical History: Reports: Hx Hypertension Denies: Hx Coronary Artery Disease, Hx Heart Attack Pulmonary Medical History: Reports: Hx Pneumonia Denies: Hx Asthma, Hx Bronchitis, Hx COPD Neurological Medical History: Denies: Hx Cerebrovascular Accident, Hx Seizures Endocrine Medical History: Reports: Hx Diabetes Mellitus Type 2 Renal/ Medical History: Reports: Hx End Stage Renal Disease, Hx Peritoneal Dialysis Musculoskeltal Medical History: Denies Hx Arthritis, Reports Hx Musculoskeletal Trauma - knee injury october 13, 2013 Skin Medical History: Reports Hx MRSA Psychiatric Medical History: Denies: Hx Depression Infectious Medical History: Reports: Hx MRSA Past Surgical History: Reports: Hx Orthopedic Surgery, Hx Vascular Surgery - PermCath, peritoneal dialysis - Immunizations Immunizations up to date: No Hx Diphtheria, Pertussis, Tetanus Vaccination: No History of Influenza Vaccine for 02/2017 - 07/2017 Season: Yes Physical Exam - Vital signs Vitals: Temp Pulse Resp BP Pulse Ox 97.5 F 91 18 160/86 H 100 11/14/17 17:01 11/14/17 17:01 11/14/17 17:01 11/14/17 17:01 11/14/17 17:01 Course - Vital Signs Vital signs: Temp Pulse Resp BP Pulse Ox 97.5 F 91 18 160/86 H 100 11/14/17 17:01 11/14/17 17:01 11/14/17 17:01 11/14/17 17:01 11/14/17 17:01 Doctor's Discharge - Discharge Referrals: Nicanor CAGE MD [Primary Care Provider] - Follow up as needed
--- NOTE | 2017-11-14 18:49 | RADIOLOGY REPORT (SQ) ---
EXAM DESCRIPTION: CHEST 2 VIEWS COMPLETED DATE/TIME: 11/14/2017 6:40 pm REASON FOR STUDY: SOB COMPARISON: 10/07/2017 EXAM PARAMETERS: NUMBER OF VIEWS: two views TECHNIQUE: Digital Frontal and Lateral radiographic views of the chest acquired. RADIATION DOSE: NA LIMITATIONS: none FINDINGS: LUNGS AND PLEURA: Minimal linear density is identified in the left upper lung field most c onsistent with subsegmental atelectasis or scarring. Remaining lung louis are clear. No pleural ef fusions are identified. No pneumothorax is seen. MEDIASTINUM AND HILAR STRUCTURES: No masses or contour abnormalities. HEART AND VASCULAR STRUCTURES: The configuration of the heart and mediastinal structures is unchanged . BONES: No acute findings. HARDWARE: None in the chest. OTHER: No other significant finding. IMPRESSION: Minimal linear density in left upper lung field most consistent with subsegmental atelec tasis or scarring. Remaining lung louis are clear. TECHNICAL DOCUMENTATION: JOB ID: [id number] [employer]- All Rights Reserved Reading location - IP/workstation name: [email or web address]
[2017-11-14] MEDS ORDERED: NORMAL SALINE 500 ML IV ONE (20:05)
[2017-11-14] MEDS ORDERED: ONDANSETRON 4 MG TAB.RAPDIS PO ONE (20:06)
[2017-11-14 20:10] LABS: ABSOLUTE BASOPHILS # (AUTO) 0.1 10^3/uL (0.0-0.2); ABSOLUTE EOSINOPHILS # (AUTO) 0.4 10^3/uL (0.0-0.6); ABSOLUTE LYMPHOCYTES (AUTO) 2.5 10^3/uL (0.5-4.7); ABSOLUTE MONOCYTES (AUTO) 1.1 10^3/uL (0.1-1.4); ABSOLUTE NEUT (AUTO) 8.3 10^3/uL (1.7-8.2); EOSINOPHILS % (AUTO) 3.3 % (0-6); HEMATOCRIT 25.3 % (36.0-47.0); HEMOGLOBIN 8.7 g/dL (12.0-15.5); LYMPHOCYTES % (AUTO) 20.4 % (13-45); MEAN CORPUSCULAR HEMOGLOBIN 32.9 pg (27.0-33.4); MEAN CORPUSCULAR HGB CONC 34.6 g/dL (32.0-36.0); MEAN CORPUSCULAR VOLUME 95 fl (80-97); MONOCYTES % (AUTO) 9.1 % (3-13); PLATELET COUNT 403 10^3/uL (150-450); RED BLOOD COUNT 2.66 10^6/uL (3.72-5.28); RED CELL DISTRIBUTION WIDTH 15.7 % (11.5-14.0); SEGMENTED NEUTROPHILS % (AUTO) 66.2 % (42-78); TOTAL CELLS COUNTED % (AUTO) 100 %; WHITE BLOOD COUNT 12.5 10^3/uL (4.0-10.5)
[2017-11-14 20:57] LABS: ALANINE AMINOTRANSFERASE 28 U/L (9-52); ALBUMIN 3.4 g/dL (3.5-5.0); ALKALINE PHOSPHATASE 91 U/L (38-126); ANION GAP 19 (5-19); ASPARTATE AMINO TRANSFERASE 26 U/L (14-36); BILIRUBIN,DIRECT 0.7 mg/dL (0.0-0.4); BILIRUBIN,TOTAL 0.7 mg/dL (0.2-1.3); BLOOD UREA NITROGEN 63 mg/dL (7-20); CALCIUM 8.2 mg/dL (8.4-10.2); CARBON DIOXIDE 24 mmol/L (22-30); CHLORIDE 97 mmol/L (98-107); CREATINE KINASE 228 U/L (30-135); GLUCOSE 82 mg/dL (75-110); POTASSIUM 3.4 mmol/L (3.6-5.0); SODIUM 139.8 mmol/L (137-145); TOTAL PROTEIN 6.7 g/dL (6.3-8.2)
--- NOTE | 2017-11-14 21:28 | ER Document Report ---
ED General - General Chief Complaint: Shortness Of Breath Stated Complaint: DIFFICULTY BREATHING, HEARTBEAT ISSUE Time Seen by Provider: 11/14/17 17:28 TRAVEL OUTSIDE OF THE [place] IN LAST 30 DAYS: No - HPI Patient complains to provider of: Nausea dyspnea palpitations Notes: Patient coming of the above-stated symptoms today started earlier today. Upon my evaluation patient resting company stating that she is asymptomatic and requesting to have something to eat. Patient is a peritoneal dialysis patient currently being treated for acute peritonitis with gentamicin and vancomycin. Patient states she does perform her peritoneal dialysis daily patient otherwise denies any fevers chills diarrhea. Patient is resting comfortably explained patient that we can offer something to drink and possibly some crackers patient again states that she wants food such as chicken salad and did advise against this however patient was very insistent stating that she was going to send her down to the cafeteria - Related Data Allergies/Adverse Reactions: cephalexin monohydrate [From Keflex] Allergy (Severe, Verified 11/14/17 17:00) Hives clindamycin [Clindamycin] Allergy (Severe, Verified 11/14/17 17:00) Hives morphine [Morphine] Allergy (Severe, Verified 11/14/17 17:00) Hives Sulfa (Sulfonamide Antibiotics) Allergy (Severe, Verified 11/14/17 17:00) Hives tramadol [Tramadol] Allergy (Severe, Verified 11/14/17 17:00) Hives trimethoprim [From Bactrim] Allergy (Severe, Verified 11/14/17 17:00) Penicillins Allergy (Verified 11/14/17 17:00) sulfamethoxazole [From Bactrim] Allergy (Verified 11/14/17 17:00) Past Medical History - Social History Smoking Status: Never Smoker Chew tobacco use (# tins/day): No Frequency of alcohol use: None Drug Abuse: None Family History: Arthritis, DM, Hypertension Patient has suicidal ideation: No Patient has homicidal ideation: No - Past Medical History Cardiac Medical History: Reports: Hx Hypertension Denies: Hx Coronary Artery Disease, Hx Heart Attack Pulmonary Medical History: Reports: Hx Pneumonia Denies: Hx Asthma, Hx Bronchitis, Hx COPD Neurological Medical History: Denies: Hx Cerebrovascular Accident, Hx Seizures Endocrine Medical History: Reports: Hx Diabetes Mellitus Type 2 Renal/ Medical History: Reports: Hx End Stage Renal Disease, Hx Peritoneal Dialysis Musculoskeltal Medical History: Denies Hx Arthritis, Reports Hx Musculoskeletal Trauma - knee injury october 13, 2013 Skin Medical History: Reports Hx MRSA Psychiatric Medical History: Denies: Hx Depression Infectious Medical History: Reports: Hx MRSA Past Surgical History: Reports: Hx Orthopedic Surgery, Hx Vascular Surgery - PermCath, peritoneal dialysis - Immunizations Immunizations up to date: No Hx Diphtheria, Pertussis, Tetanus Vaccination: No Hx Pneumococcal Vaccination: 05/27/14 Review of Systems - Review of Systems Constitutional: No symptoms reported EENT: No symptoms reported Cardiovascular: Palpitations Respiratory: Short of breath Gastrointestinal: Nausea Genitourinary: No symptoms reported Female Genitourinary: No symptoms reported Musculoskeletal: No symptoms reported Skin: No symptoms reported Hematologic/Lymphatic: No symptoms reported Neurological/Psychological: No symptoms reported -: Yes All other systems reviewed and negative Physical Exam - Vital signs Vitals: Temp Pulse Resp BP Pulse Ox 97.5 F 91 18 160/86 H 100 11/14/17 17:01 11/14/17 17:01 11/14/17 17:01 11/14/17 17:01 11/14/17 17:01 Interpretation: Normal - General General appearance: Appears well, Alert - HEENT Head: Normocephalic, Atraumatic Eyes: Normal Pupils: PERRL - Respiratory Respiratory status: No respiratory distress Chest status: Nontender Breath sounds: Normal Chest palpation: Normal - Cardiovascular Rhythm: Regular Heart sounds: Normal auscultation Murmur: No - Abdominal Inspection: Normal Distension: No distension Bowel sounds: Normal Tenderness: Nontender Organomegaly: No organomegaly Notes: Peritoneal catheter in place no signs of infection abdomen soft - Back Back: Normal, Nontender - Extremities General upper extremity: Normal inspection, Nontender, Normal color, Normal ROM , Normal temperature General lower extremity: Normal inspection, Nontender, Normal color, Normal ROM , Normal temperature, Normal weight bearing. No: Irasema's sign - Neurological Neuro grossly intact: Yes Cognition: Normal Orientation: AAOx4 Guy Coma Scale Eye Opening: Spontaneous Guy Coma Scale Verbal: Oriented [place] Coma Scale Motor: Obeys Commands [place] Coma Scale Total: 15 Speech: Normal Motor strength normal: LUE, RUE, LLE, RLE Sensory: Normal - Psychological Associated symptoms: Normal affect, Normal mood - Skin Skin Temperature: Warm Skin Moisture: Dry Skin Color: Normal Course - Re-evaluation Re-evalutation: 11/15/17 03:54 Patient laboratory studies not show any acute pathology slight increase in the patient's creatinine 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 Osorio that it did recommend patient follow-up otherwise patient was able to tolerate a chicken salad bowl from the cafeteria stating that it did not taste good and she did not finish her food however did not vomit after eating food did not taste good. No critical etiology seen patient discharged home - Vital Signs Vital signs: Temp Pulse Resp BP Pulse Ox 98.2 F 82 16 155/86 H 96 11/14/17 21:42 11/14/17 21:42 11/14/17 21:42 11/14/17 21:42 11/14/17 21:42 - Laboratory Result Diagrams: 11/14/17 19:49 11/14/17 20:37 Laboratory results interpreted by me: 11/14/17 11/14/17 19:49 20:37 WBC 12.5 H RBC 2.66 L Hgb 8.7 L Hct 25.3 L RDW 15.7 H Absolute Neutrophils 8.3 H Potassium 3.4 L Chloride 97 L BUN 63 H Creatinine 21.77 H Est GFR ( Amer) 2 L Est GFR (Non-Af Amer) 2 L Calcium 8.2 L Direct Bilirubin 0.7 H Creatine Kinase 228 H Albumin 3.4 L Discharge - Discharge Clinical Impression: Peritoneal dialysis catheter in place Nausea & vomiting Qualifiers: Vomiting type: unspecified Vomiting Intractability: unspecified Qualified Code( s): R11.2 - Nausea with vomiting, unspecified Dyspnea Qualifiers: Dyspnea type: unspecified Qualified Code(s): R06.00 - Dyspnea, unspecified Condition: Good Disposition: HOME, SELF-CARE Instructions: Dyspnea, Nonspecific ([facility]), Vomiting ([facility]) Additional Instructions: Your evaluation today does not show any signs of pneumonia or any critical etiology on your chest x-ray. Laboratory studies also did not show any critical pathology. Please continue with your medications at home as prescribed. Will recommend a bland diet clear liquids for the next 1224 hrs. followed by starchy foods such as crackers or dry pasta cereal and advance as tolerated. He may use the Zofran for any nausea. Follow-up with your primary care physician return to ER symptoms worsen Prescriptions: Ondansetron [Zofran Odt] 4 mg PO Q6 PRN #30 tab.rapdis PRN Reason: For Nausea/Vomiting Referrals: Nicanor OSORIO MD [Primary Care Provider] - Follow up as needed
[2017-11-14 21:45] VITALS: BP 155/86
--- NOTE | 2017-11-14 22:53 | EKG REPORT ---
SEVERITY:- BORDERLINE ECG - SINUS RHYTHM BORDERLINE T ABNORMALITIES, INFERIOR LEADS : Confirmed by: Katie Patiño 14-Nov-2017 22:52:03
== END 2017-11-14 21:45 | disposition home or self-care (01) ==
LOC: ER 16:53
DX: R06.00 Dyspnea, unspecified (principal); R11.2 Nausea with vomiting, unspecified; R00.2 Palpitations; I10 Essential (primary) hypertension; E11.9 Type 2 diabetes mellitus without complications; Z99.2 Dependence on renal dialysis
CPT/HCPCS: 93005; 99285; 96360; 36415; 82550; 84703; 85025; 80053; 71046; 93010; A9270; J7040; S0119

== ENCOUNTER 2017-12-02 12:17 | Emergency (ER) | payer MEDICARE, MEDICAID ==
[2017-12-02] MEDS ORDERED: CALCIUM GLUCONATE 1000 MG/10 ML INJ IV ONE (12:26)
[2017-12-02] MEDS ORDERED: LIDOCAINE 2% INJ-PF (100 MG/5 ML) SYRINGE ONE (12:26)
[2017-12-02] MEDS ORDERED: SODIUM BICARBONATE 8.4% INJ 50 MEQ/50 ML DISP.SYRIN ONE (12:26)
[2017-12-02] MEDS ORDERED: MIDAZOLAM 2 MG/2 ML INJ ONE ×2 (12:36→14:02)
--- NOTE | 2017-12-02 12:38 | ER Document Report ---
ED General - General Stated Complaint: UNRESPONSIVE Time Seen by Provider: 12/02/17 12:26 Mode of Arrival: Medic Information source: Emergency Med Personnel Notes: 37-year-old female chronic kidney disease on peritoneal dialysis presents altered. It appears patient was doing her dialysis, had an unresponsive episode when went to check on her 10 min later. No similar episodes. Enroute ems noted minimal responsiveness with eyelid flickering only. Patient did have 2 runs of Dry Lube tach TRAVEL OUTSIDE OF THE [place] IN LAST 30 DAYS: No - Related Data Allergies/Adverse Reactions: cephalexin monohydrate [From Keflex] Allergy (Severe, Verified 11/14/17 17:00) Hives clindamycin [Clindamycin] Allergy (Severe, Verified 11/14/17 17:00) Hives morphine [Morphine] Allergy (Severe, Verified 11/14/17 17:00) Hives Sulfa (Sulfonamide Antibiotics) Allergy (Severe, Verified 11/14/17 17:00) Hives tramadol [Tramadol] Allergy (Severe, Verified 11/14/17 17:00) Hives trimethoprim [From Bactrim] Allergy (Severe, Verified 11/14/17 17:00) Penicillins Allergy (Verified 11/14/17 17:00) sulfamethoxazole [From Bactrim] Allergy (Verified 11/14/17 17:00) Past Medical History - Social History Smoking Status: Never Smoker Cigarette use (# per day): No Chew tobacco use (# tins/day): No Smoking Education Provided: No Family History: Arthritis, DM, Hypertension - Past Medical History Cardiac Medical History: Reports: Hx Hypertension Denies: Hx Coronary Artery Disease, Hx Heart Attack Pulmonary Medical History: Reports: Hx Pneumonia Denies: Hx Asthma, Hx Bronchitis, Hx COPD Neurological Medical History: Denies: Hx Cerebrovascular Accident, Hx Seizures Endocrine Medical History: Reports: Hx Diabetes Mellitus Type 2 Renal/ Medical History: Reports: Hx End Stage Renal Disease, Hx Peritoneal Dialysis Musculoskeltal Medical History: Denies Hx Arthritis, Reports Hx Musculoskeletal Trauma - knee injury october 13, 2013 Skin Medical History: Reports Hx MRSA Psychiatric Medical History: Denies: Hx Depression Infectious Medical History: Reports: Hx MRSA Past Surgical History: Reports: Hx Orthopedic Surgery, Hx Vascular Surgery - PermCath, peritoneal dialysis - Immunizations Immunizations up to date: No Hx Diphtheria, Pertussis, Tetanus Vaccination: No Hx Pneumococcal Vaccination: 05/27/14 Review of Systems - Review of Systems Notes: PHYSICAL EXAMINATION: GENERAL: Unresponsive HEAD: Atraumatic, normocephalic. EYES: Pupils equal round and reactive to light, extraocular movements intact, conjunctiva are normal. ENT: Nares patent, oropharynx clear without exudates. Moist mucous membranes. NECK: Normal range of motion, supple without lymphadenopathy LUNGS: Breath sounds clear to auscultation bilaterally and equal. No wheezes rales or rhonchi. HEART: Regular rate and rhythm without murmurs ABDOMEN: Soft, nontender, nondistended abdomen. No guarding, no rebound. No masses appreciated. Female : deferred Musculoskeletal: Normal range of motion, no pitting or edema. No cyanosis. NEUROLOGICAL: Initially patient is not responding to any stimuli including pain , after IO was placed she did open her eyes and began saying her legs hurt but would not follow any commands SKIN: I have a right anterior tib -: Yes ROS unobtainable due to patient's medical condition Course - Re-evaluation Re-evalutation: Upon arrival patient is still minimally responsive only fluttering of the eyes, and IO was immediately placed in the right anterior tibia patient began moving her hands, pt noted to have v tach on monitor , pt had a pulse, given calcium and bicarb immediately, labs pending. 12/02/17 12:38 Patient started to seize, had rhythmic motion of the left hand O2 sats dropped to 70% nonrebreather was placed Versed was given seizure activity ceased 12/02/17 13:16 Family arrives notes that the patient has been seen at 3 different emergency departments in the past 3 week for nausea vomiting 12/02/17 13:26 pt noted to be seizing again, rythmic movement of the left hand 2 mg of Versed given 12/02/17 14:01 Patient is seizing again 4 mg of Versed given 12/02/17 14:53 Dr crowley accepts the patient the ICU - Laboratory Result Diagrams: 12/02/17 12:24 12/02/17 12:27 Laboratory results interpreted by me: 12/02/17 12/02/17 12/02/17 12:24 12:24 12:27 WBC 10.6 H RBC 3.47 L Hgb 11.4 L Hct 32.5 L Carbonic Acid 0.69 L ABG pH 7.65 H* ABG pCO2 22.9 L ABG pO2 135.0 H ABG Total CO2 25.6 H ABG O2 Saturation 99.2 H Potassium 3.5 L BUN 26 H Creatinine 16.33 H Est GFR ( Amer) 3 L Est GFR (Non-Af Amer) 3 L Glucose 243 H Magnesium 1.4 L Direct Bilirubin 0.5 H - Diagnostic Test Radiology reviewed: Image reviewed - EKG Interpretation by Me EKG shows normal: Sinus rhythm, [place], Intervals, QRS Complexes Discharge - Discharge Clinical Impression: Observed seizure-like activity, Peritoneal dialysis catheter in place CKD (chronic kidney disease) Qualifiers: Chronic kidney disease stage: on chronic dialysis Qualified Code(s): N18.6 - End stage renal disease; Z99.2 - Dependence on renal dialysis; Z99.2 - Dependence on renal dialysis; Z99.2 - Dependence on renal dialysis; Z99.2 - Dependence on renal dialysis Condition: Fair Disposition: Critical [facility] Referrals: Nicanor CAGE MD [Primary Care Provider] - Follow up as needed
[2017-12-02 12:58] LABS: ARTERIAL BLOOD H2CO3 0.69 mmol/L (1.05-1.35); ARTERIAL BLOOD HCO3 24.9 mmol/L (20-26); ARTERIAL BLOOD O2 SATURATION 99.2 % (94-98); ARTERIAL BLOOD PCO2 22.9 mmHg (35-45); ARTERIAL BLOOD TOTAL CO2 25.6 mmol/L (21-25)
[2017-12-02 12:59] LABS: ARTERIAL BLOOD FIO2 ROOM AIR
[2017-12-02 13:00] LABS: ARTERIAL BLOOD PH 7.65 (7.35-7.45)
[2017-12-02 13:03] LABS: ABSOLUTE BASOPHILS # (AUTO) 0.1 10^3/uL (0.0-0.2); ABSOLUTE EOSINOPHILS # (AUTO) 0.3 10^3/uL (0.0-0.6); ABSOLUTE LYMPHOCYTES (AUTO) 2.2 10^3/uL (0.5-4.7); ABSOLUTE MONOCYTES (AUTO) 0.9 10^3/uL (0.1-1.4); ABSOLUTE NEUT (AUTO) 7.1 10^3/uL (1.7-8.2); BASOPHILS % (AUTO) 0.9 % (0-2); EOSINOPHILS % (AUTO) 2.6 % (0-6); HEMATOCRIT 32.5 % (36.0-47.0); HEMOGLOBIN 11.4 g/dL (12.0-15.5); MEAN CORPUSCULAR HEMOGLOBIN 32.9 pg (27.0-33.4); MEAN CORPUSCULAR HGB CONC 35.1 g/dL (32.0-36.0); MEAN CORPUSCULAR VOLUME 94 fl (80-97); MONOCYTES % (AUTO) 8.7 % (3-13); PLATELET COUNT 285 10^3/uL (150-450); RED BLOOD COUNT 3.47 10^6/uL (3.72-5.28); RED CELL DISTRIBUTION WIDTH 13.5 % (11.5-14.0); SEGMENTED NEUTROPHILS % (AUTO) 66.8 % (42-78); TOTAL CELLS COUNTED % (AUTO) 100 %; WHITE BLOOD COUNT 10.6 10^3/uL (4.0-10.5)
[2017-12-02 13:11] LABS: ALANINE AMINOTRANSFERASE 29 U/L (9-52); ALBUMIN 3.8 g/dL (3.5-5.0); ALKALINE PHOSPHATASE 95 U/L (38-126); ANION GAP 18 (5-19); ASPARTATE AMINO TRANSFERASE 17 U/L (14-36); BILIRUBIN,DIRECT 0.5 mg/dL (0.0-0.4); BILIRUBIN,TOTAL 0.5 mg/dL (0.2-1.3); BLOOD UREA NITROGEN 26 mg/dL (7-20); CALCIUM 9.1 mg/dL (8.4-10.2); CARBON DIOXIDE 23 mmol/L (22-30); CHLORIDE 99 mmol/L (98-107); CREATINE KINASE 102 U/L (30-135); GLUCOSE 243 mg/dL (75-110); POTASSIUM 3.5 mmol/L (3.6-5.0); SODIUM 140.3 mmol/L (137-145); TOTAL PROTEIN 7.5 g/dL (6.3-8.2)
[2017-12-02 13:24] LABS: CREATINE KINASE MB 0.9 ng/mL (<4.55)
[2017-12-02] MEDS ORDERED: MIDAZOLAM 2 MG/2 ML INJ IV ONE ×3 (13:24→14:02)
[2017-12-02] MEDS ORDERED: LEVETIRACETAM 1000 MG/NACL-ISO 1,000 MG/100 ML RTUPB IV ONE (13:25)
[2017-12-02 13:27] LABS: TROPONIN I 0.047 ng/mL
--- NOTE | 2017-12-02 14:08 | RADIOLOGY REPORT (SQ) ---
EXAM DESCRIPTION: CHEST SINGLE VIEW COMPLETED DATE/TIME: 12/02/2017 1:44 pm REASON FOR STUDY: dialysis patient COMPARISON: 11/18/2017 EXAM PARAMETERS: NUMBER OF VIEWS: One view. TECHNIQUE: Single frontal radiographic view of the chest acquired. RADIATION DOSE: NA LIMITATIONS: None. FINDINGS: LUNGS AND PLEURA: Low lung volumes limits the examination. Interval resolution of the le ft upper lung zone atelectasis or early infiltrate. No pneumothorax or pleural effusion. MEDIASTINUM AND HILAR STRUCTURES: No masses. Contour normal. HEART AND VASCULAR STRUCTURES: Heart normal in size. Normal vasculature. BONES: No acute findings. HARDWARE: None in the chest. OTHER: No other significant finding. IMPRESSION: 1 Low lung volumes limits examination. Interval resolution of the left upper lung zone atelectasis or infiltrates since the prior study dated 11/18/2017. TECHNICAL DOCUMENTATION: JOB ID: [id number] [employer]- All Rights Reserved Reading location - IP/workstation name: [email or web address]
--- NOTE | 2017-12-02 14:42 | RADIOLOGY REPORT (SQ) ---
EXAM DESCRIPTION: CT ABD/PELVIS NO ORAL OR IV COMPLETED DATE/TIME: 12/02/2017 1:41 pm REASON FOR STUDY: nausea vomiting COMPARISON: 10/02/2017 TECHNIQUE: CT scan of the abdomen and pelvis performed without intravenous or oral contrast. Images reviewed with lung, soft tissue, and bone windows. Reconstructed coronal and sagittal MPR images revi ewed. All images stored on PACS. All CT scanners at this facility use dose modulation, iterative reconstruction, and/or weight based d osing when appropriate to reduce radiation dose to as low as reasonably achievable (ALARA). [facility]: Dose Right [facility]: CareDose [facility]: Dose Right [facility]: Teradose 4D [facility]: Smart [employer] RADIATION DOSE: CT Rad equipment meets quality standard of care and radiation dose reduction techniq ues were employed. CTDIvol: 14.4 mGy. DLP: 817 mGy-cm.mGy. LIMITATIONS: None. FINDINGS: LOWER CHEST: Minimal basilar atelectasis. NON-CONTRASTED LIVER, SPLEEN, ADRENALS: Evaluation limited by lack of IV contrast. No identified sign ificant masses. PANCREAS: No masses. No peripancreatic inflammatory changes. GALLBLADDER: No identified stones by CT criteria. No inflammatory changes to suggest cholecystitis. RIGHT KIDNEY AND URETER: No suspicious masses. Assessment limited by lack of IV contrast. No signif icant calcifications. No hydronephrosis or hydroureter. LEFT KIDNEY AND URETER: No suspicious masses. Assessment limited by lack of IV contrast. No signifi cant calcifications. No hydronephrosis or hydroureter. AORTA AND RETROPERITONEUM: Extensive vascular calcification. No aneurysm. BOWEL AND PERITONEAL CAVITY: Diffuse intra-abdominal free fluid likely related to peritoneal dialysis . No masses. No inflammation. APPENDIX: Normal. PELVIS, BLADDER, AND ABDOMINAL WALL:Free fluid. Peritoneal dialysis catheter. BONES: No significant findings. OTHER: No other significant finding. IMPRESSION: Extensive free fluid in abdomen related to peritoneal dialysis. Peritoneal dialysis cat heter present. No acute findings. COMMENT: Quality ID # [id number]: Final reports with documentation of one or more dose reduction techniques (e.g., Automated exposure control, adjustment of the mA and/or kV according to patient size, use of iterative reconstruction technique) TECHNICAL DOCUMENTATION: JOB ID: [id number] [employer]- All Rights Reserved Reading location - IP/workstation name: [email or web address]
--- NOTE | 2017-12-02 14:44 | RADIOLOGY REPORT (SQ) ---
EXAM DESCRIPTION: CT HEAD WITHOUT COMPLETED DATE/TIME: 12/02/2017 1:41 pm REASON FOR STUDY: altered COMPARISON: 10/02/2017 TECHNIQUE: Axial images acquired through the brain without intravenous contrast. Images reviewed wi th bone, brain and subdural windows. Additional sagittal and coronal reconstructions were generated. Images stored on PACS. All CT scanners at this facility use dose modulation, iterative reconstruction, and/or weight based d osing when appropriate to reduce radiation dose to as low as reasonably achievable (ALARA). [facility]: Dose Right [facility]: CareDose [facility]: Dose Right [facility]: Teradose 4D [facility]: Smart RE2 RADIATION DOSE: CT Rad equipment meets quality standard of care and radiation dose reduction techniq ues were employed. CTDIvol: 53.2 mGy. DLP: 1044 mGy-cm. LIMITATIONS: None. FINDINGS: VENTRICLES: Normal size and contour. The cisterns are patent. CEREBRUM: No masses. No hemorrhage. No midline shift. No evidence for acute infarction. Normal gra y/white matter differentiation. No areas of low density in the white matter. CEREBELLUM: No masses. No hemorrhage. No alteration of density. No evidence for acute infarction. EXTRAAXIAL SPACES: No fluid collections. No masses. ORBITS AND GLOBE: No intra- or extraconal masses. Normal contour of globe without masses. CALVARIUM: No fracture. PARANASAL SINUSES: No fluid or mucosal thickening. SOFT TISSUES: No mass or hematoma. OTHER: No other significant finding. IMPRESSION: 1 No significant interval changes since the prior examination dated 10/02/2017. No acute intracranial abnormality. EVIDENCE OF ACUTE STROKE: NO. COMMENT: Quality ID # [id number]: Final reports with documentation of one or more dose reduction techniques (e.g., Automated exposure control, adjustment of the mA and/or kV according to patient size, use of iterative reconstruction technique) TECHNICAL DOCUMENTATION: JOB ID: [id number] [employer]- All Rights Reserved Reading location - IP/workstation name: [email or web address]
--- NOTE | 2017-12-02 20:22 | EKG REPORT ---
SEVERITY:- ABNORMAL ECG - SINUS TACHYCARDIA BORDERLINE LEFT AXIS DEVIATION REPOL ABNRM SUGGESTS ISCHEMIA, DIFFUSE LEADS : Confirmed by: Paulette Noel MD 02-Dec-2017 20:20:45
[2017-12-03] MEDS ORDERED: ACETAMINOPHEN 325 MG TABLET PO ONE (00:17)
--- NOTE | 2017-12-03 00:58 | ER Document Report ---
ED General - General Chief Complaint: Altered Mental Status Stated Complaint: UNRESPONSIVE Time Seen by Provider: 12/02/17 12:26 Mode of Arrival: Medic TRAVEL OUTSIDE OF THE [place] IN LAST 30 DAYS: No - Related Data Allergies/Adverse Reactions: cephalexin monohydrate [From Keflex] Allergy (Severe, Verified 11/14/17 17:00) Hives clindamycin [Clindamycin] Allergy (Severe, Verified 11/14/17 17:00) Hives morphine [Morphine] Allergy (Severe, Verified 11/14/17 17:00) Hives Sulfa (Sulfonamide Antibiotics) Allergy (Severe, Verified 11/14/17 17:00) Hives tramadol [Tramadol] Allergy (Severe, Verified 11/14/17 17:00) Hives trimethoprim [From Bactrim] Allergy (Severe, Verified 11/14/17 17:00) Penicillins Allergy (Verified 11/14/17 17:00) sulfamethoxazole [From Bactrim] Allergy (Verified 11/14/17 17:00) Past Medical History - General Information source: Emergency Med Personnel - Social History Smoking Status: Never Smoker Cigarette use (# per day): No Chew tobacco use (# tins/day): No Family History: Arthritis, DM, Hypertension Patient has suicidal ideation: No Patient has homicidal ideation: No - Past Medical History Cardiac Medical History: Reports: Hx Hypertension Denies: Hx Coronary Artery Disease, Hx Heart Attack Pulmonary Medical History: Reports: Hx Pneumonia Denies: Hx Asthma, Hx Bronchitis, Hx COPD Neurological Medical History: Denies: Hx Cerebrovascular Accident, Hx Seizures Endocrine Medical History: Reports: Hx Diabetes Mellitus Type 2 Renal/ Medical History: Reports: Hx End Stage Renal Disease, Hx Peritoneal Dialysis Musculoskeltal Medical History: Denies Hx Arthritis, Reports Hx Musculoskeletal Trauma - knee injury october 13, 2013 Skin Medical History: Reports Hx MRSA Psychiatric Medical History: Denies: Hx Depression Infectious Medical History: Reports: Hx MRSA Past Surgical History: Reports: Hx Orthopedic Surgery, Hx Vascular Surgery - PermCath, peritoneal dialysis - Immunizations Immunizations up to date: No Hx Diphtheria, Pertussis, Tetanus Vaccination: No Hx Pneumococcal Vaccination: 05/27/14 Physical Exam - Vital signs Vitals: Resp 40 H 12/02/17 12:18 Course - Re-evaluation Re-evalutation: 12/03/17 00:57 Patient reevaluated on transfer. Vital signs are stable. Patient is in no acute distress. We will proceed with transfer. - Vital Signs Vital signs: Temp Pulse Resp BP Pulse Ox 98.4 F 106 H 21 H 162/101 H 100 12/02/17 22:07 12/02/17 13:40 12/03/17 00:00 12/02/17 23:16 12/02/17 23:16 - Laboratory Result Diagrams: 12/02/17 12:24 12/02/17 12:27 Laboratory results interpreted by me: 12/02/17 12/02/17 12/02/17 12:24 12:24 12:27 WBC 10.6 H RBC 3.47 L Hgb 11.4 L Hct 32.5 L Carbonic Acid 0.69 L ABG pH 7.65 H* ABG pCO2 22.9 L ABG pO2 135.0 H ABG Total CO2 25.6 H ABG O2 Saturation 99.2 H Potassium 3.5 L BUN 26 H Creatinine 16.33 H Est GFR ( Amer) 3 L Est GFR (Non-Af Amer) 3 L Glucose 243 H Magnesium 1.4 L Direct Bilirubin 0.5 H Discharge - Discharge Clinical Impression: Observed seizure-like activity, Peritoneal dialysis catheter in place CKD (chronic kidney disease) Qualifiers: Chronic kidney disease stage: on chronic dialysis Qualified Code(s): N18.6 - End stage renal disease Condition: Fair Disposition: [facility] Referrals: Nicanor CAGE MD [Primary Care Provider] - Follow up as needed
[2017-12-03 01:15] VITALS: BP 139/100
== END 2017-12-03 01:17 | disposition short-term general hospital (02) ==
LOC: ER 12:17
DX: I12.0 Hypertensive chronic kidney disease with stage 5 chronic kidney disease or end stage renal disease (principal); N18.6 End stage renal disease; R41.82 Altered mental status, unspecified; E11.9 Type 2 diabetes mellitus without complications; Z99.2 Dependence on renal dialysis
CPT/HCPCS: 93005; 99285; 96375; 96365; 36415; 82553; 82803; 82550; 83735; 85025; 80053; 84484; 71045; 70450; 74176; 93010; A9270; J2250; J0610; J2001; J3490; J1953

== ENCOUNTER 2018-01-08 08:26 | Day surgery (SDC) | payer MEDICARE, MEDICAID ==
[2018-01-08] MEDS ORDERED: INSULIN REG, HUMAN 100 UNIT/ML 3 ML VIAL (PYX) ONE (08:57)
[2018-01-08] MEDS: MIDAZOLAM 2 MG/2 ML INJ ONE ×3 (09:24→09:30)
[2018-01-08] MEDS ORDERED: DIPHENHYDRAMINE HCL 50 MG/ML VIAL ONE (09:34)
[2018-01-08] MEDS ORDERED: ONDANSETRON HCL INJ/PF 4 MG/2 ML SDV ONE (09:34)
--- NOTE | 2018-01-08 09:34 | Operative Report ---
Operative Report DATE OF SURGERY: 01/08/18 Operative Report: The risks benefits and alternatives of the procedure explained to the patient in detail and informed consent is obtained.A GIF Olympus video scope was inserted into the patient's mouth and hypopharynx, the esophagus is identified intubated and insufflated, the scope was then advanced through the esophagus stomach and duodenum, retroflexion maneuver is done ,the esophagus stomach and first and second portions of the duodenum examined PREOPERATIVE DIAGNOSIS: Nausea vomiting POSTOPERATIVE DIAGNOSIS: Gastritis status post biopsy rule out Helicobacter pylori. Likely has gastroparesis OPERATION: EGD with biopsy SURGEON: KATIA WILSON ANESTHESIA: Moderate Sedation - 4 mg of Versed, 75 mcg of fentanyl. Conscious sedation monitoring time 30 minutes. TISSUE REMOVED OR ALTERED: As noted above. COMPLICATIONS: None. ESTIMATED BLOOD LOSS: None. INTRAOPERATIVE FINDINGS: As noted above. PROCEDURE: Patient tolerated procedure well. No immediate postprocedure complications are noted. Patient discharged in good condition. Discharge date 01/08/2018. Discharge diet: Regular. Discharge activity: Regular. 2-3 week follow-up to discuss findings. Patient is instructed call the office or proceed to the emergency room should there be any further problems or questions. Wait on pathology.
[2018-01-08] MEDS ORDERED: FENTANYL CITRATE INJ/PF 100 MCG/2 ML AMPUL ONE (09:35)
[2018-01-08] MEDS ORDERED: FLUMAZENIL INJ 0.5 MG/5 ML VIAL ONE (09:35)
[2018-01-08] MEDS ORDERED: NALOXONE HCL INJ/PF 0.4 MG/1 ML SDV ONE (09:35)
[2018-01-08] MEDS ORDERED: EPINEPHRINE INJ 1 MG/10 ML DISP.SYRIN ONE (09:36)
[2018-01-08] MEDS ORDERED: GLUCAGON,HUMAN RECOMB 1 MG INJ ONE (09:36)
[2018-01-08 13:06] VITALS: BP 145/80
== END 2018-01-08 10:45 | disposition home or self-care (01) ==
LOC: END 08:26
PROVIDERS: ATTEND Internal Medicine Gastroenterology
DX: K29.50 Unspecified chronic gastritis without bleeding (principal); B96.81 Helicobacter pylori [H. pylori] as the cause of diseases classified elsewhere; E11.22 Type 2 diabetes mellitus with diabetic chronic kidney disease; N18.9 Chronic kidney disease, unspecified; Z99.2 Dependence on renal dialysis; Z79.4 Long term (current) use of insulin
CPT/HCPCS: 43239; 82962; 88342 ×2; 88305 ×2; J2250; J3010; A9270; J0171; J1200; J1610; J1815; J2310; J2405; J3490

== ENCOUNTER 2018-01-28 13:17 | Emergency (ER) | payer MEDICARE, MEDICAID ==
[2018-01-28 14:08] LABS: ABSOLUTE EOSINOPHILS # (AUTO) 0.3 10^3/uL (0.0-0.6); ABSOLUTE LYMPHOCYTES (AUTO) 1.3 10^3/uL (0.5-4.7); ABSOLUTE MONOCYTES (AUTO) 0.6 10^3/uL (0.1-1.4); ABSOLUTE NEUT (AUTO) 5.4 10^3/uL (1.7-8.2); BASOPHILS % (AUTO) 0.4 % (0-2); EOSINOPHILS % (AUTO) 4.2 % (0-6); HEMATOCRIT 30.4 % (36.0-47.0); HEMOGLOBIN 10.4 g/dL (12.0-15.5); LYMPHOCYTES % (AUTO) 16.9 % (13-45); MEAN CORPUSCULAR HEMOGLOBIN 31.9 pg (27.0-33.4); MEAN CORPUSCULAR VOLUME 94 fl (80-97); MONOCYTES % (AUTO) 7.5 % (3-13); PLATELET COUNT 202 10^3/uL (150-450); RED BLOOD COUNT 3.25 10^6/uL (3.72-5.28); RED CELL DISTRIBUTION WIDTH 14.6 % (11.5-14.0); TOTAL CELLS COUNTED % (AUTO) 100 %; WHITE BLOOD COUNT 7.6 10^3/uL (4.0-10.5)
[2018-01-28 14:16] LABS: INTERNATIONAL RATION (INR) 1.06; PROTHROMBIN TIME 14.3 SEC (11.4-15.4)
[2018-01-28 14:26] LABS: ALANINE AMINOTRANSFERASE 24 U/L (9-52); ALBUMIN 3.5 g/dL (3.5-5.0); ALKALINE PHOSPHATASE 139 U/L (38-126); ANION GAP 17 (5-19); ASPARTATE AMINO TRANSFERASE 16 U/L (14-36); BILIRUBIN,DIRECT 0.4 mg/dL (0.0-0.4); BILIRUBIN,TOTAL 0.4 mg/dL (0.2-1.3); BLOOD UREA NITROGEN 64 mg/dL (7-20); CALCIUM 8.1 mg/dL (8.4-10.2); CARBON DIOXIDE 26 mmol/L (22-30); CHLORIDE 97 mmol/L (98-107); GLUCOSE 157 mg/dL (75-110); POTASSIUM 3.4 mmol/L (3.6-5.0); SODIUM 139.8 mmol/L (137-145); TOTAL PROTEIN 7.1 g/dL (6.3-8.2)
[2018-01-28] MEDS ORDERED: HYDROCODONE/ACETAMINOPHEN 5-325 MG TABLET PO ONE (14:45)
--- NOTE | 2018-01-28 14:51 | ER Document Report ---
ED General - General Chief Complaint: Blood Pressure Problem Stated Complaint: BLOOD PRESSURE ISSUES Time Seen by Provider: 01/28/18 14:40 TRAVEL OUTSIDE OF THE [place] IN LAST 30 DAYS: No - HPI Notes: 37-year-old female with history of end-stage renal disease and hypertension on continuous peritoneal dialysis presents from [facility] after her normally scheduled monthly appointment for elevated blood pressure. It was 202/136 and 180/110 after being given 0.2 of clonidine. She normally takes 0.2 of clonidine at night, 0.1 of clonidine in the morning and Norvasc at night. She has not missed any doses. She reports having near daily headaches since being diagnosed with seizures in November. Headache has not changed today. No focal numbness or weakness. Denies any chest pain or shortness of breath. No abdominal pain. No change in color of her dialysate. No weight gain or loss. She has had some chills and sweats without documented fevers. - Related Data Allergies/Adverse Reactions: cephalexin monohydrate [From Keflex] Allergy (Severe, Verified 01/08/18 08:36) Hives clindamycin [Clindamycin] Allergy (Severe, Verified 01/08/18 08:36) Hives morphine [Morphine] Allergy (Severe, Verified 01/08/18 08:36) Hives Sulfa (Sulfonamide Antibiotics) Allergy (Severe, Verified 01/08/18 08:36) Hives tramadol [Tramadol] Allergy (Severe, Verified 01/08/18 08:36) Hives trimethoprim [From Bactrim] Allergy (Severe, Verified 01/08/18 08:36) Penicillins Allergy (Verified 01/08/18 08:36) sulfamethoxazole [From Bactrim] Allergy (Verified 01/08/18 08:36) Past Medical History - Social History Smoking Status: Unknown if Ever Smoked Family History: Arthritis, DM, Hypertension Patient has suicidal ideation: No Patient has homicidal ideation: No - Past Medical History Cardiac Medical History: Reports: Hx Hypertension - ON MEDS Denies: Hx Coronary Artery Disease, Hx Heart Attack Pulmonary Medical History: Reports: Hx Pneumonia - OCTOBER 2017 Denies: Hx Asthma, Hx Bronchitis, Hx COPD Neurological Medical History: Denies: Hx Cerebrovascular Accident, Hx Seizures Endocrine Medical History: Reports: Hx Diabetes Mellitus Type 2 Renal/ Medical History: Reports: Hx End Stage Renal Disease, Hx Peritoneal Dialysis Musculoskeletal Medical History: Reports Hx Arthritis - BACK , Reports Hx Musculoskeletal Trauma - knee injury october 13, 2013 Skin Medical History: Reports Hx MRSA Psychiatric Medical History: Denies: Hx Depression Infectious Medical History: Reports: Hx MRSA Past Surgical History: Reports: Hx Orthopedic Surgery, Hx Vascular Surgery - PermCath, peritoneal dialysis. Denies: Hx Hysterectomy - Immunizations Immunizations up to date: No Hx Diphtheria, Pertussis, Tetanus Vaccination: No Hx Pneumococcal Vaccination: 05/27/16 Review of Systems - Review of Systems Notes: Constitutional: Negative for fever. HENT: Negative for sore throat. Eyes: Negative for visual changes. Cardiovascular: Negative for chest pain. Respiratory: Negative for shortness of breath. Gastrointestinal: Negative for abdominal pain, vomiting or diarrhea. Genitourinary: Negative for dysuria. Musculoskeletal: Negative for back pain. Skin: Negative for rash. Neurological: Positive for headaches, negative for weakness or numbness. 10 point ROS negative except as marked above and in HPI. Physical Exam - Vital signs Vitals: Resp Pulse Ox 12 99 01/28/18 13:25 01/28/18 13:25 - Notes Notes: PHYSICAL EXAMINATION: GENERAL: Well-appearing, well-nourished and in no acute distress. HEAD: Atraumatic, normocephalic. EYES: Pupils equal round and reactive to light, extraocular movements intact, conjunctiva are normal. ENT: nares patent, oropharynx clear without exudates. Moist mucous membranes. NECK: Normal range of motion, supple without lymphadenopathy LUNGS: Breath sounds clear to auscultation bilaterally and equal. No wheezes rales or rhonchi. HEART: Regular rate and rhythm, no chest wall tenderness ABDOMEN: Soft, nontender, normoactive bowel sounds. No guarding, no rebound. No masses appreciated. Peritoneal dialysis catheter in mid abdomen without any surrounding erythema, warmth, or tenderness EXTREMITIES: Normal range of motion, no pitting or edema. No cyanosis. NEUROLOGICAL: Cranial nerves grossly intact. Normal speech, normal gait. Normal sensory and motor exams. PSYCH: Normal mood, normal affect. SKIN: Warm, Dry, normal turgor, no rashes or lesions noted. Course - Re-evaluation Re-evalutation: 01/28/18 14:48 Patient very well-appearing. She is asymptomatic with her elevated blood pressure. She has chronic headaches that are unchanged. She states Tylenol does not work. Given [place]. Blood pressure has been gradually improving. Advise follow-up with primary care physician to discuss medication changes. Advised to take 0.2 in the morning if blood pressure continues to be elevated. At this time will discharge with return precautions and follow-up recommendations. Verbal discharge instructions given a the bedside and opportunity for questions given. Medication warnings reviewed. Patient is in agreement with this plan and has verbalized understanding of return precautions and the need for primary care follow-up in the next 24-72 hours. Voice dictation software was used. Chart was reviewed, but errors may exist. - Vital Signs Vital signs: Temp Pulse Resp BP Pulse Ox 97.6 F 14 211/125 H 98 01/28/18 13:51 01/28/18 13:40 01/28/18 13:40 01/28/18 13:40 - Laboratory Result Diagrams: 01/28/18 13:42 01/28/18 13:42 Laboratory results interpreted by me: 01/28/18 01/28/18 13:42 13:42 RBC 3.25 L Hgb 10.4 L Hct 30.4 L RDW 14.6 H Potassium 3.4 L Chloride 97 L BUN 64 H Creatinine 15.39 H Est GFR ( Amer) 3 L Est GFR (Non-Af Amer) 3 L Glucose 157 H Calcium 8.1 L Alkaline Phosphatase 139 H Discharge - Discharge Clinical Impression: Hypertension Qualifiers: Hypertension type: essential hypertension Qualified Code(s): I10 - Essential ( primary) hypertension Headache Qualifiers: Headache type: unspecified Headache chronicity pattern: chronic headache Intractability: not intractable Qualified Code(s): R51 - Headache Condition: Stable Disposition: HOME, SELF-CARE Instructions: High Blood Pressure ([facility]) Additional Instructions: Talk to your doctor about adjusting your blood pressure medications if it continues to be uncontrolled. You may take 0.2 mg of clonidine in the morning instead of 0.1 if it remains elevated. Return for any worsening or concerning symptoms. Forms: Elevated Blood Pressure Referrals: Nicanor CAGE MD [Primary Care Provider] - Follow up in 3-5 days
[2018-01-28 15:10] VITALS: BP 195/100
--- NOTE | 2018-01-28 19:21 | EKG REPORT ---
SEVERITY:- BORDERLINE ECG - SINUS RHYTHM BORDERLINE LEFT AXIS DEVIATION BORDERLINE T ABNORMALITIES, INFERIOR LEADS BORDERLINE PROLONGED QT INTERVAL : Confirmed by: Clay Carroll MD 28-Jan-2018 19:20:40
== END 2018-01-28 15:37 | disposition home or self-care (01) ==
LOC: ER 13:17
DX: I12.0 Hypertensive chronic kidney disease with stage 5 chronic kidney disease or end stage renal disease (principal); E11.22 Type 2 diabetes mellitus with diabetic chronic kidney disease; N18.6 End stage renal disease; Z99.2 Dependence on renal dialysis; R51 Headache; Z79.899 Other long term (current) drug therapy; Z88.1 Allergy status to other antibiotic agents; Z88.5 Allergy status to narcotic agent; Z88.2 Allergy status to sulfonamides; Z88.0 Allergy status to penicillin
CPT/HCPCS: 93005; 99284; 36415; 85025; 85610; 80053; 93010; A9270

== ENCOUNTER 2018-02-15 14:16 | Emergency (ER) | payer MEDICARE, MEDICAID ==
--- NOTE | 2018-02-15 14:39 | ER Document Report ---
ED Medical Screen (RME) - General Chief Complaint: Dialysis Catheter Problem Stated Complaint: DIALYSIS ISSUE Time Seen by Provider: 02/15/18 14:35 Mode of Arrival: Ambulatory Information source: Patient Notes: Patient is a 37-year-old female who presents with chief complaint of contamination of her peritoneal dialysis catheter. Patient reports that she was walking to the store when she realized that Had fallen off, she touched the tip of the catheter with her bare hands. Patient has no other acute complaints today. Exam: Alert, oriented, no distress noted. Peritoneal dialysis catheter noted to abdomen. I have greeted and performed a rapid initial assessment of this patient. A comprehensive ED assessment and evaluation of the patient, analysis of test results and completion of the medical decision making process will be conducted by additional ED providers. Dictation of this chart was performed using voice recognition software; therefore, there may be some unintended grammatical errors. TRAVEL OUTSIDE OF THE [place] IN LAST 30 DAYS: No - Related Data Allergies/Adverse Reactions: cephalexin monohydrate [From Keflex] Allergy (Severe, Verified 01/08/18 08:36) Hives clindamycin [Clindamycin] Allergy (Severe, Verified 01/08/18 08:36) Hives morphine [Morphine] Allergy (Severe, Verified 01/08/18 08:36) Hives Sulfa (Sulfonamide Antibiotics) Allergy (Severe, Verified 01/08/18 08:36) Hives tramadol [Tramadol] Allergy (Severe, Verified 01/08/18 08:36) Hives trimethoprim [From Bactrim] Allergy (Severe, Verified 01/08/18 08:36) Penicillins Allergy (Verified 01/08/18 08:36) sulfamethoxazole [From Bactrim] Allergy (Verified 01/08/18 08:36) Past Medical History - Past Medical History Cardiac Medical History: Reports: Hx Hypertension - ON MEDS Denies: Hx Coronary Artery Disease, Hx Heart Attack Pulmonary Medical History: Reports: Hx Pneumonia - OCTOBER 2017 Denies: Hx Asthma, Hx Bronchitis, Hx COPD Neurological Medical History: Denies: Hx Cerebrovascular Accident, Hx Seizures Endocrine Medical History: Reports: Hx Diabetes Mellitus Type 2 Renal/ Medical History: Reports: Hx End Stage Renal Disease. Denies: Hx Peritoneal Dialysis Musculoskeltal Medical History: Reports Hx Arthritis - BACK , Reports Hx Musculoskeletal Trauma - knee injury october 13, 2013 Skin Medical History: Reports Hx MRSA Psychiatric Medical History: Denies: Hx Depression Infectious Medical History: Reports: Hx MRSA Past Surgical History: Reports: Hx Genitourinary Surgery, Hx Orthopedic Surgery , Hx Vascular Surgery - PermCath, peritoneal dialysis. Denies: Hx Hysterectomy - Immunizations Immunizations up to date: No Hx Diphtheria, Pertussis, Tetanus Vaccination: No History of Influenza Vaccine for 02/2017 - 07/2017 Season: Yes Influenza Administration Date for 02/2017 - 07/2017 Season: 02/25/17 Physical Exam - Vital signs Vitals: Temp Pulse Resp BP Pulse Ox 98.0 F 91 16 113/74 100 02/15/18 14:33 02/15/18 14:33 02/15/18 14:33 02/15/18 14:33 02/15/18 14:33 Course - Vital Signs Vital signs: Temp Pulse Resp BP Pulse Ox 98.0 F 91 16 113/74 100 02/15/18 14:33 02/15/18 14:33 02/15/18 14:33 02/15/18 14:33 02/15/18 14:33 Doctor's Discharge - Discharge Referrals: Nicanor CAGE MD [Primary Care Provider] - Follow up as needed
--- NOTE | 2018-02-15 18:45 | ER Document Report ---
ED General - General Chief Complaint: Dialysis Catheter Problem Stated Complaint: DIALYSIS ISSUE Time Seen by Provider: 02/15/18 14:35 Mode of Arrival: Ambulatory Notes: This is a 37-year-old female with end-stage renal disease on peritoneal dialysis that was sent over for change of her peritoneal dialysis adapter. Patient states she knocked the tip off, compromising sterility. She denies any fever, chills, nausea vomiting. TRAVEL OUTSIDE OF THE [place] IN LAST 30 DAYS: No - HPI Onset: Just prior to arrival Onset/Duration: Sudden Quality of pain: No pain Severity: None Associated symptoms: denies: Chills, Fever Exacerbated by: Denies Relieved by: Denies Similar symptoms previously: Yes Recently seen / treated by doctor: Yes - Related Data Allergies/Adverse Reactions: cephalexin monohydrate [From Keflex] Allergy (Severe, Verified 01/08/18 08:36) Hives clindamycin [Clindamycin] Allergy (Severe, Verified 01/08/18 08:36) Hives morphine [Morphine] Allergy (Severe, Verified 01/08/18 08:36) Hives Sulfa (Sulfonamide Antibiotics) Allergy (Severe, Verified 01/08/18 08:36) Hives tramadol [Tramadol] Allergy (Severe, Verified 01/08/18 08:36) Hives trimethoprim [From Bactrim] Allergy (Severe, Verified 01/08/18 08:36) Penicillins Allergy (Verified 01/08/18 08:36) sulfamethoxazole [From Bactrim] Allergy (Verified 01/08/18 08:36) Past Medical History - General Information source: Patient - Social History Smoking Status: Never Smoker Cigarette use (# per day): No Frequency of alcohol use: None Drug Abuse: None Lives with: Family Family History: Arthritis, DM, Hypertension Patient has suicidal ideation: No Patient has homicidal ideation: No - Past Medical History Cardiac Medical History: Reports: Hx Hypertension - ON MEDS Denies: Hx Coronary Artery Disease, Hx Heart Attack Pulmonary Medical History: Reports: Hx Pneumonia - OCTOBER 2017 Denies: Hx Asthma, Hx Bronchitis, Hx COPD Neurological Medical History: Denies: Hx Cerebrovascular Accident, Hx Seizures Endocrine Medical History: Reports: Hx Diabetes Mellitus Type 2 Renal/ Medical History: Reports: Hx End Stage Renal Disease. Denies: Hx Peritoneal Dialysis Musculoskeletal Medical History: Reports Hx Arthritis - BACK , Reports Hx Musculoskeletal Trauma - knee injury october 13, 2013 Skin Medical History: Reports Hx MRSA Psychiatric Medical History: Denies: Hx Depression Infectious Medical History: Reports: Hx MRSA Past Surgical History: Reports: Hx Genitourinary Surgery, Hx Orthopedic Surgery , Hx Vascular Surgery - PermCath, peritoneal dialysis. Denies: Hx Hysterectomy - Immunizations Immunizations up to date: No Hx Diphtheria, Pertussis, Tetanus Vaccination: No Hx Pneumococcal Vaccination: 05/27/16 Review of Systems - Review of Systems Constitutional: No symptoms reported EENT: No symptoms reported Gastrointestinal: See HPI Physical Exam - Vital signs Vitals: Temp Pulse Resp BP Pulse Ox 98.0 F 91 16 113/74 100 02/15/18 14:33 02/15/18 14:33 02/15/18 14:33 02/15/18 14:02/15/18 14:33 Notes: Physical exam: GENERAL: A 7-year-old female, alert and oriented 3, no acute distress HEAD: Atraumatic, normocephalic. ENT: Moist mucous membranes. NECK: Normal range of motion, supple ABDOMEN: Soft, normoactive bowel sounds. PD catheter intact. No tenderness to palpation. No guarding, no rebound. No masses appreciated. NEUROLOGICAL: Cranial nerves II through XII grossly intact. Normal speech, moving all extremities. PSYCH: Normal mood, normal affect. SKIN: Warm, Dry, normal turgor, no rashes or lesions noted. Course - Re-evaluation Re-evalutation: 02/16/18 00:21 PD catheter adapter was changed by RN under sterile conditions. Patient will follow up with her doctors. - Vital Signs Vital signs: Temp Pulse Resp BP Pulse Ox 97.6 F 86 18 129/82 H 97 02/15/18 19:16 02/15/18 19:16 02/15/18 19:16 02/15/18 19:16 02/15/18 19:16 Discharge - Discharge Clinical Impression: PD catheter adapter change Condition: Stable Disposition: HOME, SELF-CARE Additional Instructions: Follow-up with the renal center as planned. Return to the emergency room for any problems with the catheter, any concerns for infection. Aloe up with your doctor as well. Referrals: Nicanor CAGE MD [Primary Care Provider] - Follow up as needed
[2018-02-15 19:18] VITALS: BP 129/82
== END 2018-02-15 19:18 | disposition home or self-care (01) ==
LOC: ER 14:16
DX: Z49.02 Encounter for fitting and adjustment of peritoneal dialysis catheter (principal); I12.0 Hypertensive chronic kidney disease with stage 5 chronic kidney disease or end stage renal disease; E11.22 Type 2 diabetes mellitus with diabetic chronic kidney disease; N18.6 End stage renal disease; Z88.1 Allergy status to other antibiotic agents; Z88.5 Allergy status to narcotic agent; Z88.2 Allergy status to sulfonamides; Z88.0 Allergy status to penicillin
CPT/HCPCS: 99284